=== PATIENT | female | born 1965 | race Caucasian/White ===

== ENCOUNTER 2018-01-31 12:35 | Emergency (ER) | payer BC, OTHER ==
[~2018-01-31] VITALS: Ht 154.9 cm; Wt 86.9 kg
[~2018-01-31 12:35] MED LIST: AMIT25TA9 PO; CPR500 PO; LSN5 PO
[2018-01-31 12:39] VITALS: TEMP 36.7; Ht 154.9 cm; Wt 86.9 kg
[2018-01-31] MEDS ORDERED: SODIUM CHLORIDE 0.9% 1000ML 1,000 ML IV STA (12:48)
[2018-01-31] MEDS ORDERED: ONDANSETRON INJ 2 MG/ML 2 ML VIAL IV STA (12:48)
[2018-01-31 13:06] LABS: BASO % 0.6 %; BASO ABS # 0.04 K/uL (0-0.2); EOS % 3.8 %; EOS ABS # 0.27 K/uL (0-0.5); HEMATOCRIT 41.9 % (37-47); HEMOGLOBIN 14.8 g/dL (12.0-16.0); IG# 0.03 K/uL (0.00-0.02); LYMPH % 24.7 %; LYMPH ABS # 1.74 K/uL (1.2-3.4); MEAN CELL VOLUME 89.3 fL (80-100); MEAN CORPUSCULAR HEMOGLOBIN 31.6 pg (25-34); MEAN CORPUSCULAR HGB CONC 35.3 g/dl (32-36); MEAN PLATELET VOLUME 9.2 fL (7.4-10.4); MONO % 8.7 %; MONO ABS # 0.61 K/uL (0.11-0.59); NEUT % 61.8 %; NEUT ABS # 4.35 K/uL (1.4-6.5); PLATELET COUNT 221 K/uL (130-400); RED CELL DISTRIBUTION WIDTH CV 12.6 % (11.5-14.5); RED CELL DISTRIBUTION WIDTH SD 40.7 fL (36.4-46.3); WHITE BLOOD COUNT 7.04 K/uL (4.8-10.8)
[2018-01-31] MEDS: MoRPHine SULFATE 4 MG/ML 1 ML CARP\\VIAL IV PRN ×2 (13:12→14:43)
[2018-01-31 13:22] LABS: ALBUMIN 3.4 gm/dl (3.4-5.0); CREATININE 0.83 mg/dl (0.60-1.20); POTASSIUM 3.9 mmol/L (3.5-5.1)
--- NOTE | 2018-01-31 13:23 | DIAGNOSTIC IMAGING REPORT ---
CHEST ONE VIEW PORTABLE CLINICAL HISTORY: Abdominal pain. COMPARISON STUDY: Chest radiograph October 05, 2016. FINDINGS: Lung volumes are normal. No pneumothorax or pleural effusion is noted. Cardiac size is at the upper limits of normal. There is no evidence for pulmonary edema. There is no consolidation. IMPRESSION: No acute cardiopulmonary findings. Electronically signed by: Carlos Vargas M.D. 01/31/2018 1:22 PM Dictated Date/Time: 01/31/2018 1:22 PM
[2018-01-31 13:24] LABS: PTT PATIENT 28.5 SECONDS (21.0-31.0); TOTAL PROTEIN 7.5 gm/dl (6.4-8.2)
[2018-01-31] MEDS ORDERED: THYROID MED PO (14:22)
[2018-01-31] MEDS ORDERED: DULO60CA44 PO (14:22)
[2018-01-31] MEDS ORDERED: BLOOD PRESSURE MED PO (14:22)
--- NOTE | 2018-01-31 14:24 | DIAGNOSTIC IMAGING REPORT ---
ABD/PELVIS WITHOUT FOR STONE CLINICAL HISTORY: 52 years-old Female presenting with left lower quadrant and L flank pain, history of diverticulitis. TECHNIQUE: Multidetector CT of the abdomen and pelvis was performed without the use of intravenous contrast. IV contrast: None. A dose lowering technique was used consistent with the principles of ALARA (as low as reasonably achievable). COMPARISON: 06/09/2016. CT DOSE (mGy.cm): The estimated cumulative dose is 1648.43 mGy.cm. FINDINGS: Livestock Farm Manager topogram: Cholecystectomy clips and posterior lumbar fusion hardware noted. Lung bases: Minimal basilar opacities, likely atelectasis. Normal heart size. No pericardial or pleural effusion. Liver: Normal morphology. Normal density. Biliary: No gross biliary ductal dilatation allowing for noncontrast technique. Gallbladder surgically absent. Pancreas: Mild parenchymal atrophy. Spleen: Normal noncontrast appearance. Adrenal glands: Normal noncontrast appearance. Kidneys and ureters: Normal noncontrast appearance. No nephrolithiasis. No hydronephrosis. Normal ureters. Bladder: Circumferential bladder wall thickening. Pelvic organs: Lobular contour the uterine fundus likely indicates underlying fibroid. Significant fascial thickening surrounds the bilateral adnexa. Additionally, there is a 2.2 cm indeterminate cystic lesion arising exophytically from the right ovary. Bowel: Diverticulosis of the sigmoid colon with significant infiltration of the pericolonic fat surrounding the distal sigmoid. No adjacent fluid collection. Diverticulosis also noted in the descending colon. Intramural fat deposition noted elsewhere in the colon, nonspecific. The appendix is normal. No bowel obstruction. Peritoneal cavity: Peritoneal thickening in the pelvis and left lower quadrant. No significant free intraperitoneal fluid. No free intraperitoneal gas. Lymph nodes: No gross lymphadenopathy allowing for noncontrast technique. Vasculature: Atherosclerosis of the normal caliber abdominal aorta. Abdominal wall: Normal. Musculoskeletal: Degenerative changes of the spine. Posterior lumbar fusion hardware at L4-5. Appendectomy defects also noted at this level. IMPRESSION: 1. Findings consistent with acute uncomplicated diverticulitis of the distal sigmoid colon. Gastroenterology consultation for follow-up sigmoidoscopy after treatment could be considered to exclude underlying neoplasm. 2. Right ovarian cystic appearing 2.2 cm lesion, indeterminate. In this perimenopausal female, this is likely benign. Nonurgent pelvic ultrasound could be considered as clinically indicated. Electronically signed by: Jose Anna M.D. 01/31/2018 2:22 PM Dictated Date/Time: 01/31/2018 2:12 PM
[2018-01-31] MEDS ORDERED: LISINOPRIL 5 MG TAB PO ONE (14:30)
[2018-01-31] MEDS ORDERED: METRONIDAZOLE 250 MG TAB PO STA (15:11)
[2018-01-31] MEDS ORDERED: CIPROFLOXACIN 500 MG TAB PO STA (15:11)
[2018-01-31] MEDS ORDERED: CIPR-255 PO (15:21)
[2018-01-31] MEDS ORDERED: METR-163 PO (15:21)
[2018-01-31] MEDS ORDERED: OXYC-57 PO (15:21)
--- NOTE | 2018-01-31 15:22 | EMERGENCY ROOM VISIT NOTE ---
History Report prepared by Bryan: Guille Vargas Under the Supervision of: Dr. Mayur Lopez D.O. First contact with patient: 12:42 Chief Complaint: ABDOMINAL PAIN Stated Complaint: STOMACH PAIN History of Present Illness The patient is a 52 year old female who presents to the Emergency Room with complaints of severe and constant pain in her abdomen that began about 1 week ago. The patient states that her pain is localized to her left lower quadrant. She noticed an acute worsening of her pain last night, and felt subjectively feverish. She did not record any febrile temperatures. She describes the pain as a "cramping" with an intermittent "sharp" sensation. The patient has had diverticulitis in the past, and notes that this feels similar to that episode. She has not had any nausea, vomiting, diarrhea, or urinary symptoms. The patient 's blood pressure was high upon arrival to the ED, but notes that she did not take her medication this morning. Source of History: patient Onset: 1 week ago, acute worsening last night Position: abdomen (LLQ) Quality: sharp, cramping Timing: constant, worsening Associated Symptoms: + fevers, No nausea, No vomiting, No diarrhea, No urinary symptoms Review of Systems See HPI for pertinent positives & negatives. A total of 10 systems reviewed and were otherwise negative. Past Medical & Surgical Medical Problems: (1) Depression Surgical Problems: (1) History of elbow surgery (2) S/P section (3) S/P cholecystectomy (4) S/P endometrial ablation (5) S/P lumbar spinal fusion (6) S/P tonsillectomy Family History FH: CAD (coronary artery disease) FATHER, Onset:50's - 60 MOTHER, Onset:60 years & older Social History Smoking Status: Current Every Day Smoker Marital Status: Occupation Status: employed Current/Historical Medications Scheduled Ciprofloxacin Hcl (Cipro), 500 MG PO BID Duloxetine Hcl (Cymbalta), Unknown Dose PO DAILY Metronidazole (Flagyl), 500 MG PO TID [Blood Pressure Med], 1 TAB PO DAILY [Thyroid Med], 1 TAB PO DAILY Scheduled PRN Oxycodone/Acetaminophen 5MG/325MG (Percocet 5MG/325MG), 1 TAB PO Q6H PRN for Pain Allergies Coded Allergies: Erythromycin (Verified Allergy, Mild, 01/31/18) Tetracyclines (Verified Allergy, Mild, 01/31/18) Cephalosporins (Verified Allergy, Unknown, 01/31/18) Penicillins (Verified Allergy, Unknown, 01/31/18) Sulfa Antibiotics (Verified Allergy, Unknown, ., 01/31/18) Physical Exam Vital Signs Date Time Temp Pulse Resp B/P (MAP) Pulse Ox O2 Delivery O2 Flow Rate FiO2 01/31/18 15:46 78 20 179/109 98 Room Air 01/31/18 14:45 82 15 189/108 97 Room Air 01/31/18 13:45 74 18 202/131 98 Room Air 01/31/18 12:39 36.7 97 18 232/100 99 Room Air Physical Exam CONSTITUTIONAL/VITAL SIGNS: Reviewed / noted above. GENERAL: Non-toxic in appearance. INTEGUMENTARY: Warm, dry, and [place]. HEAD: Normocephalic. EYES: without scleral icterus or trauma. ENT/OROPHARYNX: clear and moist. LYMPHADENOPATHY/NECK: Is supple without lymphadenopathy or meningismus. RESPIRATORY: Lungs clear and equal. CARDIOVASCULAR: Regular rate and rhythm. GI/ABDOMEN: Soft. Tenderness present in the LLQ. No organomegaly or pulsatile mass. No rebound or guarding. Normal bowel sounds. EXTREMITIES: Warm and well perfused. BACK: No CVA tenderness. NEUROLOGICAL: Intact without focal deficits. PSYCHIATRIC: normal affect. MUSCULOSKELETAL: Normally developed with good muscle tone. Medical Decision & Procedures ER Provider Diagnostic Interpretation: Radiology results as stated below per my review and radiologist interpretation: ABD/PELVIS WITHOUT FOR STONE CLINICAL HISTORY: 52 years-old Female presenting with left lower quadrant and L flank pain, history of diverticulitis. TECHNIQUE: Multidetector CT of the abdomen and pelvis was performed without the use of intravenous contrast. IV contrast: None. A dose lowering technique was used consistent with the principles of ALARA (as low as reasonably achievable). COMPARISON: 06/09/2016. CT DOSE (mGy.cm): The estimated cumulative dose is 1648.43 mGy.cm. FINDINGS: Computed Tomography Technician topogram: Cholecystectomy clips and posterior lumbar fusion hardware noted. Lung bases: Minimal basilar opacities, likely atelectasis. Normal heart size. No pericardial or pleural effusion. Liver: Normal morphology. Normal density. Biliary: No gross biliary ductal dilatation allowing for noncontrast technique. Gallbladder surgically absent. Pancreas: Mild parenchymal atrophy. Spleen: Normal noncontrast appearance. Adrenal glands: Normal noncontrast appearance. Kidneys and ureters: Normal noncontrast appearance. No nephrolithiasis. No hydronephrosis. Normal ureters. Bladder: Circumferential bladder wall thickening. Pelvic organs: Lobular contour the uterine fundus likely indicates underlying fibroid. Significant fascial thickening surrounds the bilateral adnexa. Additionally, there is a 2.2 cm indeterminate cystic lesion arising exophytically from the right ovary. Bowel: Diverticulosis of the sigmoid colon with significant infiltration of the pericolonic fat surrounding the distal sigmoid. No adjacent fluid collection. Diverticulosis also noted in the descending colon. Intramural fat deposition noted elsewhere in the colon, nonspecific. The appendix is normal. No bowel obstruction. Peritoneal cavity: Peritoneal thickening in the pelvis and left lower quadrant. No significant free intraperitoneal fluid. No free intraperitoneal gas. Lymph nodes: No gross lymphadenopathy allowing for noncontrast technique. Vasculature: Atherosclerosis of the normal caliber abdominal aorta. Abdominal wall: Normal. Musculoskeletal: Degenerative changes of the spine. Posterior lumbar fusion hardware at L4-5. Appendectomy defects also noted at this level. IMPRESSION: 1. Findings consistent with acute uncomplicated diverticulitis of the distal sigmoid colon. Gastroenterology consultation for follow-up sigmoidoscopy after treatment could be considered to exclude underlying neoplasm. 2. Right ovarian cystic appearing 2.2 cm lesion, indeterminate. In this perimenopausal female, this is likely benign. Nonurgent pelvic ultrasound could be considered as clinically indicated. Electronically signed by: Jose Anna M.D. 01/31/2018 2:22 PM Dictated Date/Time: 01/31/2018 2:12 PM CHEST ONE VIEW PORTABLE CLINICAL HISTORY: Abdominal pain. COMPARISON STUDY: Chest radiograph October 05, 2016. FINDINGS: Lung volumes are normal. No pneumothorax or pleural effusion is noted. Cardiac size is at the upper limits of normal. There is no evidence for pulmonary edema. There is no consolidation. IMPRESSION: No acute cardiopulmonary findings. Electronically signed by: Carlos Vargas M.D. 01/31/2018 1:22 PM Dictated Date/Time: 01/31/2018 1:22 PM Laboratory Results 01/31/18 12:55 Red Blood Count 4.69, Mean Corpuscular Volume 89.3, Mean Corpuscular Hemoglobin 31.6, Mean Corpuscular Hemoglobin Concent 35.3, Mean Platelet Volume 9.2, Neutrophils (%) (Auto) 61.8, Lymphocytes (%) (Auto) 24.7, Monocytes (%) (Auto) 8.7, Eosinophils (%) (Auto) 3.8, Basophils (%) (Auto) 0.6, Neutrophils # (Auto) 4.35, Lymphocytes # (Auto) 1.74, Monocytes # (Auto) 0.61, Eosinophils # (Auto) 0.27, Basophils # (Auto) 0.04 01/31/18 12:55 Test 01/31/18 12:55 01/31/18 13:43 White Blood Count 7.04 K/uL (4.8-10.8) Red Blood Count 4.69 M/uL (4.2-5.4) Hemoglobin 14.8 g/dL (12.0-16.0) Hematocrit 41.9 % (37-47) Mean Corpuscular Volume 89.3 fL (80-100) Mean Corpuscular Hemoglobin 31.6 pg (25-34) Mean Corpuscular Hemoglobin Concent 35.3 g/dl (32-36) Platelet Count 221 K/uL (130-400) Mean Platelet Volume 9.2 fL (7.4-10.4) Neutrophils (%) (Auto) 61.8 % Lymphocytes (%) (Auto) 24.7 % Monocytes (%) (Auto) 8.7 % Eosinophils (%) (Auto) 3.8 % Basophils (%) (Auto) 0.6 % Neutrophils # (Auto) 4.35 K/uL (1.4-6.5) Lymphocytes # (Auto) 1.74 K/uL (1.2-3.4) Monocytes # (Auto) 0.61 K/uL (0.11-0.59) Eosinophils # (Auto) 0.27 K/uL (0-0.5) Basophils # (Auto) 0.04 K/uL (0-0.2) RDW Standard Deviation 40.7 fL (36.4-46.3) RDW Coefficient of Variation 12.6 % (11.5-14.5) Immature Granulocyte % (Auto) 0.4 % Immature Granulocyte # (Auto) 0.03 K/uL (0.00-0.02) Prothrombin Time 10.2 SECONDS (9.0-12.0) Prothromb Time International Ratio 1.0 (0.9-1.1) Activated Partial Thromboplast Time 28.5 SECONDS (21.0-31.0) Partial Thromboplastin Ratio 1.1 Anion Gap 4.0 mmol/L (3-11) Est Creatinine Clear Calc Drug Dose 79.4 ml/min Estimated GFR () 94.0 Estimated GFR (Non- 81.1 BUN/Creatinine Ratio 17.2 (10-20) Calcium Level 9.0 mg/dl (8.5-10.1) Total Bilirubin 0.5 mg/dl (0.2-1) Direct Bilirubin 0.2 mg/dl (0-0.2) Aspartate Amino Transf (AST/SGOT) 22 U/L (15-37) Alanine Aminotransferase (ALT/SGPT) 32 U/L (12-78) Alkaline Phosphatase 81 U/L (45-117) Total Protein 7.5 gm/dl (6.4-8.2) Albumin 3.4 gm/dl (3.4-5.0) Lipase 155 U/L (73-393) Urine Color YELLOW Urine Appearance CLEAR (CLEAR) Urine pH 5.5 (4.5-7.5) Urine Specific [place] 1.014 (1.000-1.030) Urine Protein NEG (NEG) Urine Glucose (UA) NEG (NEG) Urine Ketones NEG (NEG) Urine Occult Blood NEG (NEG) Urine Nitrite NEG (NEG) Urine Bilirubin NEG (NEG) Urine Urobilinogen NEG (NEG) Urine Leukocyte Esterase NEG (NEG) Urine WBC (Auto) 1-5 /hpf (0-5) Urine RBC (Auto) 0-4 /hpf (0-4) Urine Hyaline Casts (Auto) 1-5 /lpf (0-5) Urine Epithelial Cells (Auto) >30 /lpf (0-5) Urine Bacteria (Auto) NEG (NEG) Laboratory results as stated above per my review. Medications Administered Medications (Trade) Dose Ordered Sig/Yasmany Route Start Time Stop Time Status Last Admin Dose Admin Sodium Chloride 1,000 ml @ 999 mls/hr Q1H1M STAT IV 01/31/18 12:48 01/31/18 13:48 DC 01/31/18 13:12 999 MLS/HR Ondansetron HCl (Zofran Inj) 4 mg NOW STAT IV 01/31/18 12:48 01/31/18 12:51 DC 01/31/18 13:12 4 MG Morphine Sulfate (MoRPHine SULFATE INJ) 4 mg Q1H PRN IV 01/31/18 13:00 02/14/18 12:59 01/31/18 14:43 4 MG Lisinopril (Zestril Tab) 5 mg NOW ONCE PO 01/31/18 14:30 01/31/18 14:31 DC 01/31/18 14:42 5 MG Metronidazole (Flagyl Tab) 500 mg NOW STAT PO 01/31/18 15:11 01/31/18 15:13 DC 01/31/18 15:45 500 MG Ciprofloxacin (Cipro Tab) 500 mg NOW STAT PO 01/31/18 15:11 01/31/18 15:13 DC 01/31/18 15:45 500 MG ED Course 1245: Previous medical records were reviewed. The patient was evaluated in room A9B. A complete history and physical examination was performed. 1248: Ordered Zofran 4 mg IV, Sodium Chloride 1000 mL @ 999 mL/hr IV. 1300: Ordered Lisinopril 5 mg PO. 1511: Ordered Ciprofloxacin 500 mg PO, Metronidazole 500 mg PO. 1524:: On reevaluation, the patient is resting in bed. I discussed the results and findings with the patient. She verbalized agreement of the treatment plan. The patient was discharged home. Medical Decision Differential considered: pancreatitis, hepatitis, or acute cholecystitis, AAA, UTI, pyelonephritis, kidney stones, appendicitis, diverticulitis, shingles, bowel obstruction mesenteric ischemia, intussusception, hernia, ovarian torsion , ruptured ovarian cyst, ectopic , . This is a 52-year-old female who presents to the ED with a chief complaint of left lower quadrant abdominal pain. The patient has a history of perforated diverticulitis in the past. She states that her symptoms started about a week ago with some mild discomfort and worsened last night. She had some subjective fevers last night as well. Her pain is increased with movement. It otherwise waxes and wanes. Her initial blood pressure here was elevated at 232/100. She feels that her blood pressure is elevated because of her pain. She was seen at the pain clinic last week and states that her blood pressure was 140 systolic. That was her first visit to the pain clinic. The patient denies any urinary symptoms. No changes in her bowel or bladder. She reported little nausea but no vomiting. A chest x-ray was negative for acute disease. CBC is normal, complete metabolic panel was normal. Urine did not show infection. Chest x- ray was negative for acute disease. CT scan of the abdomen pelvis reveals an uncomplicated diverticulitis of the distal sigmoid section. GI follow-up was recommended and there was also noted to be a right ovarian cyst. The patient was told the results of the test. She was treated with IV fluids, IV Zofran IV morphine. She was noted to be hypertensive. This was felt to be related to discomfort based on a recent blood pressure that was near normal at the pain specialist visit. She was given Cipro and Flagyl p.o. here. The patient was given a prescription for Percocet, Flagyl and Cipro. She was felt to be stable for discharge. She was also given an oral dose of lisinopril. She did not take it this morning. Blood Pressure Screening Patient's blood pressure: Elevated blood pressure Blood pressure disposition: Referred to PCP Impression Primary Impression: Diverticulitis Scribe Attestation The scribe's documentation has been prepared under my direction and personally reviewed by me in its entirety. I confirm that the note above accurately reflects all work, treatment, procedures, and medical decision making performed by me. Departure Information Dispostion Home / Self-Care Prescriptions Oxycodone/Acetaminophen 5MG/325MG (PERCOCET 5MG/325MG) Tab 1 TAB PO Q6H Y for Pain, #20 TAB Prov: Mayur Lopez D.O. 01/31/18 Metronidazole (Flagyl) 500 Mg Tab 500 MG PO TID, #30 TAB Prov: Mayur Lopez D.O. 18 Ciprofloxacin Hcl (CIPRO) 500 Mg Tab 500 MG PO BID, #20 TAB Prov: Mayur Lopez D.O. 01/31/18 Referrals No Doctor, Assigned (PCP) Patient Instructions ED Diverticulitis, My [facility] Additional Instructions Your CT scan reveals findings suggesting diverticulitis. Cipro and Flagyl as prescribed. Percocet as prescribed. No driving within 6 hours of use. Do not take additional Tylenol while taking Percocet. Follow-up with your doctor and GI specialist. Your CT scan also revealed an ovarian cyst on the right. Follow-up with your doctor for this as well. Have your blood pressure rechecked by your doctor. Return for worsening.
[2018-01-31 16:36] VITALS: BP 195/113; PULSE 76; O2SAT 97
== END 2018-01-31 16:36 | disposition home or self-care (01) ==
LOC: C.EDB 12:36 → C.EDA 16:36
DX: K57.32 Diverticulitis of large intestine without perforation or abscess without bleeding (principal); R03.0 Elevated blood-pressure reading, without diagnosis of hypertension; F17.200 Nicotine dependence, unspecified, uncomplicated; Z79.899 Other long term (current) drug therapy; Z88.1 Allergy status to other antibiotic agents; Z88.0 Allergy status to penicillin; Z88.2 Allergy status to sulfonamides

== ENCOUNTER 2018-11-22 08:44 | Inpatient (IN) ==
--- NOTE | 2018-10-20 12:12 | Anesthesiology Consultation ---
Date of Service October 20, 2018 History Surgery Operation Date: 11/04/18 11:25 Proposed Procedures p L5-S1 Decompression and Fusion; L4-L5 Removal of Instrumentation - Rick Sanches DO Height/Weight Height: 5 ft 2.7 in Weight: 80.739 kg Allergies Allergy/AdvReac Type Severity Reaction Status Date / Time erythromycin base Allergy Severe Anaphylaxis Verified 10/17/18 10:47 Sulfa (Sulfonamide Allergy Severe Anaphylaxis Verified 10/17/18 10:47 Antibiotics) Tetracyclines Allergy Severe Anaphylaxis Verified 10/17/18 10:47 Cephalosporins Allergy Unknown Anaphylaxis Verified 10/17/18 10:47 Penicillins Allergy Unknown Anaphylaxis Verified 10/17/18 10:47 Medications Home Medications Medication Instructions Recorded Confirmed Last Taken gabapentin 100 mg PO TID 08/31/18 10/17/18 Unknown levothyroxine 75 mcg PO DAILY 08/31/18 10/17/18 Unknown lisinopril 2.5 mg PO DAILY 09/06/18 10/17/18 Unknown albuterol sulfate 2 puff INHALATION QID PRN 10/17/18 10/17/18 Unknown Past Medical History Medical History Depression (Acute) Diverticulitis (Acute) Hx of thyroid disease (Acute) Asthma Chronic back pain LUMBAR Degenerative disc disease Social History Smoking Status: Current every day smoker tobacco type: cigarettes Smoking cigarettes per day: HX OF 1/2 PPD Do You Dip or Chew Tobacco: No Hx Alcohol Use: Yes Alcohol type: wine and hard liquor alcohol intake frequency: holidays/special occasions only Hx Substance Use: No substance use type: does not use
--- NOTE | 2018-10-20 12:13 | PAT Medication Instructions ---
Medication Instructions Date of Service October 20, 2018 Home Medications gabapentin 100 mg PO TID levothyroxine 75 mcg PO DAILY lisinopril 2.5 mg PO DAILY albuterol sulfate 2 puff INHALATION QID PRN DO NOT take the morning of surgery lisinopril 2.5 mg PO DAILY Take morning of surgery With a small sip of water, OTHERWISE NOTHING TO EAT OR DRINK AFTER MIDNIGHT: gabapentin 100 mg PO TID levothyroxine 75 mcg PO DAILY albuterol sulfate 2 puff INHALATION QID PRN (use if needed; please bring with you to hospital day of surgery if possible) Take evening before surgery gabapentin 100 mg PO TID albuterol sulfate 2 puff INHALATION QID PRN (if needed) Other Notes If you have any questions please call us at [phone] or [phone] or [phone] or [phone]
--- NOTE | 2018-10-20 12:33 | Anesthesiology Consultation ---
Date of Service October 20, 2018 Assessment & Plan (1) Encounter for pre-operative examination: Plan: Patient seen for clearance by primary care on 10/21/2018. Per PCP patient has been noncompliant with BP medication. At this time patient is not cleared for surgery. Patient to take lisinopril as instructed and return to PCP for 3 days of blood pressure checks. If she is compliant and blood pressure is WNL she will be cleared for surgery. Patient returned for BP checks and BP persistently elevated. PCP will not clear the patient for surgery. Surgery to be cancelled until BP under better control. Chart Review Chart Review: Pending: Refer to Additional Notes / Consult section and Patient seen in Pre Admission Testing Teaching & Discussion Instructed NPO after midnight before surgery, except medications with 15 cc of water. Medication instructions provided according to the PAT guidelines. History Surgery Operation Date: 11/04/18 10:55 Proposed Procedures p L5-S1 Decompression and Fusion; L4-L5 Removal of Instrumentation - Rick Sanches, Height/Weight Height: 5 ft 2.7 in Weight: 90.8 kg Allergies Allergy/AdvReac Type Severity Reaction Status Date / Time erythromycin base Allergy Severe Anaphylaxis Verified 10/17/18 10:47 Sulfa (Sulfonamide Allergy Severe Anaphylaxis Verified 10/17/18 10:47 Antibiotics) Tetracyclines Allergy Severe Anaphylaxis Verified 10/17/18 10:47 Cephalosporins Allergy Unknown Anaphylaxis Verified 10/17/18 10:47 Penicillins Allergy Unknown Anaphylaxis Verified 10/17/18 10:47 Medications Home Medications Medication Instructions Recorded Confirmed Last Taken gabapentin 100 mg PO TID 08/31/18 10/17/18 Unknown levothyroxine 75 mcg PO DAILY 08/31/18 10/17/18 Unknown lisinopril 2.5 mg PO DAILY 09/06/18 10/17/18 Unknown albuterol sulfate 2 puff INHALATION QID PRN 10/17/18 10/17/18 Unknown Past Medical History Medical History Depression (Acute) Diverticulitis (Acute) Hx of thyroid disease (Acute) Asthma Using albuterol inhaler multiple times per day in the winter, rare use in summer months Chronic back pain LUMBAR Degenerative disc disease Essential (primary) hypertension Past Surgical History Surgical History History of (Acute) History of endometrial ablation (Acute) History of lumbar spinal fusion (Acute) Hx laparoscopic cholecystectomy (Acute) Hx of elbow surgery (Acute) Hx of tonsillectomy (Acute) Past Anesthesia History No Hx of Anesthesia Complications and No Family Hx of Anesthesia Complications History of PONV No Motion Sickness Screening History of Motion Sickness: Yes Social History Smoking Status: Current every day smoker tobacco type: cigarettes Smoking cigarettes per day: 1/2 PPD for 40yrs Do You Dip or Chew Tobacco: No Hx Alcohol Use: Yes Alcohol type: wine and hard liquor alcohol intake frequency: a few times a month Hx Substance Use: No substance use type: does not use Exercise / Class Metabolic Activity II 4-5 Yardwork/Stairs/Walk up hill (no CP or SOB with 1 FOS) Review of Systems Pt denies any recent chest pain, shortness of breath, palpitations, cough, fever or URI. Physical Exam Vital Signs BP: 188/137 automatic, manual LUE 170/118 -- pt asymptomatic, has not been taking HTN med for several months. Will take Lisinopril when she gets home today and will f/u with PCP on Wednesday. P: 95 bpm SPO2: 96% RA T: 98.3 F R: 16 ENMT Mouth: + dental restorations (one crown on molar); no chipped teeth and no loose teeth Thyromental Distance: < 3.5 Finger Breadths (3) Mallampati Class: I Neck normal visual inspection and + short neck; neck extension not limited Respiratory normal respiratory effort Auscultation: lungs clear to auscultation bilaterally and + diminished lung sounds (B/L) Cardiovascular Rate/Rhythm: regular rate and regular rhythm Heart Sounds: no murmur Vessels: no carotid bruit Extremities: no edema PMI laterally displaced Testing Electrocardiogram Date: 10/20/18 Findings: + NSR @ (84) Chest X-Ray Date: 10/20/18 Findings: + NAD Echocardiogram Date: 06/10/16 Left ventricular systolic function is normal. Ejection Fraction = 60-65%. The left ventricular wall motion is normal. There is borderline concentric left ventricular hypertrophy. Pulse wave TDI of the anterior and posterior mitral annulas demonstrates normal LV relaxation There is mild mitral regurgitation. There is trace tricuspid regurgitation. Laboratory Results 10/20/18 13:01 10/20/18 13:01 Blood Type O Positive 10/20/18 13:01 Antibody Screen NEGATIVE 10/20/18 13:01 PT 10.0 Seconds (9.0-12.0) 10/20/18 13:01 INR 1.0 (0.9-1.1) 10/20/18 13:01 APTT 26.7 Seconds (21.0-31.0) 10/20/18 13:01 Urine Color Yellow 10/20/18 13:01 Urine Appearance Clear (Clear) 10/20/18 13:01 Urine pH 6.0 (4.5-7.5) 10/20/18 13:01 Ur Specific [place] 1.021 (1.000-1.030) 10/20/18 13:01 Urine Protein Negative (Negative) 10/20/18 13:01 Urine Glucose (UA) Negative (Negative) 10/20/18 13:01 Urine Ketones Negative (Negative) 10/20/18 13:01 Urine Nitrite Negative (Negative) 10/20/18 13:01 Ur Leukocyte Esterase Negative (Negative) 10/20/18 13:01 10/20/18 13:01 Urine Culture - Final Urine,Clean Catch Three types of organisms present, all high counts probable skin jackson. No further identifications or sensitivities to follow.
--- NOTE | 2018-10-20 13:22 | XRay Report ---
XR chest Pre-admission PA/Lat CLINICAL HISTORY: pat preoperative evaluation COMPARISON STUDY: 01/31/2018 FINDINGS: The bones soft tissues and hemidiaphragms are normal. The cardiomediastinal silhouette is n ormal. The lungs are clear. The pulmonary vasculature is normal. IMPRESSION: Negative chest. The above report was generated using voice recognition software. It may contain grammatical, syntax or spelling errors. Electronically signed by: Cesar Cm M.D. 10/20/2018 1:21 PM
[2018-10-20 14:07] LABS: Basophils # (auto) 0.05 K/uL (0-0.2); Basophils % (auto) 0.9 %; Eosinophils # (auto) 0.21 K/uL (0-0.5); Eosinophils % (auto) 3.6 %; Hematocrit (blood only) 43.4 % (37-47); Hemoglobin 14.9 g/dL (12.0-16.0); Immature Granulocytes # (auto) 0.01 K/uL (0.00-0.02); Immature Granulocytes % (auto) 0.2 %; Lymphocytes # (auto) 1.69 K/uL (1.2-3.4); Lymphocytes % (auto) 29.1 %; Mean Corpuscular Hgb Conc 34.3 g/dL (32-36); Mean Corpuscular Volume 90.6 fL (80-100); Mean Platelet Volume 9.8 fL (7.4-10.4); Monocytes # (auto) 0.37 K/uL (0.11-0.59); Monocytes % (auto) 6.4 %; Neutrophils # (auto) 3.48 K/uL (1.4-6.5); Neutrophils % (auto) 59.8 %; Platelet Count 243 K/uL (130-400); RDW Coefficient of Variation 12.9 % (11.5-14.5); RDW Standard Deviation 42.9 fL (36.4-46.3); Red Blood Count 4.79 M/uL (4.2-5.4); White Blood Count 5.81 K/uL (4.8-10.8)
[2018-10-20 14:13] LABS: BUN Creatinine Ratio 16.2 (10-20); Calcium 8.8 mg/dl (8.5-10.1); Creatinine Clr Calc Pharmacy 78.6 ml/min; Est GFR (African American) 86.9; Potassium 3.9 mmol/L (3.5-5.1)
[2018-10-20 14:15] LABS: Appearance Urine Clear (Clear); Bilirubin Urine Negative (Negative); Blood Urine Negative (Negative); Color Urine Yellow; Glucose Urine UA Negative (Negative); Ketones Urine Negative (Negative); Leukocyte Esterase Urine Negative (Negative); Nitrite Urine Negative (Negative); Partial Thromboplastin Time 26.7 Seconds (21.0-31.0); Protein Urine Negative (Negative); Specific Gravity Urine 1.021 (1.000-1.030); Urobilinogen Urine Negative (Negative)
[~2018-11-22 08:44] MED LIST changes: +ACETAMINOPHEN 500 MG TAB PO SCH; -AMIT25TA9 PO; +CEFAZOLIN 2000MG 2,000 MG/15 ML SYR IV SCH; -CPR500 PO; +GABAPENTIN 300 MG x 3 PO SCH; +LR 15ML/HR IV SCH; -LSN5 PO; +VANCOMYCIN HCL 1,250 MG in SODIUM CHLORIDE 0.9% 250 ML IV SCH
--- NOTE | 2018-11-22 09:24 | History & Physical Bridge Note ---
Date of Service November 22, 2018 History & Physical Bridge Note I have examined the patient, reviewed the History & Physical and in the interval since the performance of the History & Physical I have noted the following changes of clinical significance: no changes noted
--- NOTE | 2018-11-22 09:25 | History & Physical Report ---
Date of Service November 22, 2018 Assessment & Plan (1) Neurogenic claudication due to lumbar spinal stenosis: Removal of instrumentation L4-5 revision decompression fusion L5-S1 Present on Admission?: Yes History of Present Illness Chief Complaint: Back and leg pain Primary Care Provider: Joe Alba This is a 53-year-old female presents with chronic persistent back and leg pain. After failing extensive course of nonoperative care is here for surgical intervention. Allergies Allergy/AdvReac Type Severity Reaction Status Date / Time erythromycin base Allergy Severe Anaphylaxis Verified 10/17/18 10:47 Sulfa (Sulfonamide Allergy Severe Anaphylaxis Verified 10/17/18 10:47 Antibiotics) Tetracyclines Allergy Severe Anaphylaxis Verified 10/17/18 10:47 Cephalosporins Allergy Unknown Anaphylaxis Verified 10/17/18 10:47 Penicillins Allergy Unknown Anaphylaxis Verified 10/17/18 10:47 Home Medications Home Medications Medication Instructions Recorded Confirmed Type gabapentin 100 mg PO TID 08/31/18 10/17/18 History levothyroxine 75 mcg PO DAILY 08/31/18 10/17/18 History lisinopril 2.5 mg PO DAILY 09/06/18 10/17/18 History albuterol sulfate 2 puff INHALATION QID PRN 10/17/18 10/17/18 History Past Med/Surg History Medical History Depression (Acute) Diverticulitis (Acute) Hx of thyroid disease (Acute) Asthma Using albuterol inhaler multiple times per day in the winter, rare use in summer months Chronic back pain LUMBAR Degenerative disc disease Essential (primary) hypertension Surgical History History of (Acute) History of endometrial ablation (Acute) History of lumbar spinal fusion (Acute) Hx laparoscopic cholecystectomy (Acute) Hx of elbow surgery (Acute) Hx of tonsillectomy (Acute) Social History Current Living Situation: Spouse Other Information That Helps Us Care for You: No Feels Safe at Home: Yes Safety Concerns: Feels Safe At This Time Smoking Status: Current every day smoker Tobacco Type: cigarettes Cigarettes per Day: 1/2 PPD for 40yrs Do You Dip or Chew Tobacco: No Hx Alcohol Use: Yes Alcohol type: wine and hard liquor Alcohol Intake Frequency : a few times a month Hx Substance Use: No Beliefs That Will Affect Care: None Preferred Language: Frisian Communication Ability: Effective Garageman Required: No
[2018-11-22 09:47] LABS: Pregnancy Test, Serum Negative (Negative)
[2018-11-22] MEDS ORDERED: ATROPINE SULFATE 0.1 MG/ML 10ML SYR IV PRN (10:43)
[2018-11-22] MEDS ORDERED: PHENYLEPHRINE 100MCG/ML 5ML SYR IV PRN (10:43)
[2018-11-22] MEDS ORDERED: ONDANSETRON INJ 2 MG/ML 2 ML VIAL IV PRN ×2 (10:43→15:46)
[2018-11-22] MEDS ORDERED: LABETALOL HCL IV 5 MG/ML 20ML IV PRN (10:43)
[2018-11-22] MEDS ORDERED: MEPERIDINE HCL 25 MG/ML CARP IV PRN (10:43)
[2018-11-22] MEDS ORDERED: HYDROmorphone INJ 1 MG/ML SYRINGE IV PRN (10:43)
[2018-11-22] MEDS ORDERED: ePHEDrine sulfate 50 MG/ML AMP IV PRN (10:43)
[2018-11-22] MEDS ORDERED: BACITRACIN INJ 50,000 UNIT VIAL ONE (11:09)
[2018-11-22] MEDS ORDERED: BUPIVACAINE/EPINEPHRINE 0.5% MPF 1:200,000 30 ML VIAL ONE (11:09)
[2018-11-22] MEDS ORDERED: MIDAZOLAM HCL 1 MG/ML 2ML VIAL ONE (11:36)
[2018-11-22] MEDS ORDERED: fentaNYL citrate 100 MCG/2 ML VIAL ONE ×5 (11:36→13:44)
[2018-11-22] MEDS ORDERED: HYDROmorphone INJ 2 MG/ML SYR/VIAL ONE (12:03)
[2018-11-22] MEDS ORDERED: LIDOCAINE HCL 2% 2 ML VIAL/AMP(20MG/ML) INFIL ONE (12:04)
[2018-11-22] MEDS ORDERED: ROCURONIUM BROMIDE 10 MG/ML 5 ML VIAL ONE (12:04)
[2018-11-22] MEDS ORDERED: NEOSTIGMINE METHYLSULFATE 1 MG/ML 10ML VIAL ONE (12:04)
[2018-11-22] MEDS ORDERED: GLYCOPYRROLATE 0.2 MG/ML VIAL ONE (12:04)
[2018-11-22] MEDS ORDERED: DEXAMETHASONE SOD INJ 4 MG/ML VIAL ONE (12:04)
[2018-11-22] MEDS ORDERED: ONDANSETRON INJ 2 MG/ML 2 ML VIAL ONE (12:04)
[2018-11-22] MEDS ORDERED: PROPOFOL IV EMULSION 10 MG/ML 20 ML VIAL IV ONE (12:04)
--- NOTE | 2018-11-22 14:13 | Fluoroscopy Report ---
INTRAOPERATIVE RADIOGRAPHS CLINICAL HISTORY: L5-S1 spinal fusion. Fluoroscopy time: 14 seconds. FINDINGS: 2 spot fluoroscopic views of the lower lumbar spine are presented. There as been discectomy at L5-S1, with laminectomy and posterior fusion at this level. Interpedicular screws are present at both levels. The orthopedic hardware appears intact. IMPRESSION: Intraoperative images from L5 -S1 spinal fusion as above. Electronically signed by: Maxwell Jacob M.D. 11/22/2018 2:11 PM
--- NOTE | 2018-11-22 14:15 | Operative Report ---
Post Operative Report Pre & Post Diagnosis Operation Date: 11/22/18 11:05 Pre-Op Diagnosis: LUMBAR SPINAL STENOSIS W/NEUROGENIC CLAUDICATION Post-Op Diagnosis: LUMBAR SPINAL STENOSIS W/NEUROGENIC CLAUDICATION Procedure Operation Date: 11/22/18 11:05 Actual Procedures p L5-S1 Decompression and Fusion; L4-L5 Removal of Instrumentation(Not Applicable) - Rick Sanches DO Surgeon Rick Sanches, Production Troubleshooter None Estimated Blood Loss 175 Findings Consistent with Post-Op Diagnosis Specimens None Description of Procedure Patient was met with preoperatively case discussed all questions addressed. After informed consent obtained patient was taken to the operative suite underwent intubation and placed in a prone position on the Seven table on top of the Monty frame. All bony prominences well-padded eyes inspected to ensure no external pressure placed upon. This point the lumbar spine was prepped and draped in normal sterile fashion. Sharp dissection with the assistance of Bovie cautery was performed down to and exposing the instrumentation at L4-5 and the remaining lamina of L5 and ala of S1 bilaterally. Then proceeded move the hardware bilaterally explore the fusion mass noting it to be intact. Then performed a revision complete laminectomy of L5 with foraminotomies on the left including complete facetectomy. Pedicle screws were then placed in L5 and S1 levels bilaterally with assistance of fluoroscopy and by way of a trans- foraminal approach on the left complete discectomy of L5-S1 was performed and placed carotid to subcortical bleeding bone and a 12 x 22 mm titanium cage filled with ostium bone graft tapped in position. The rods were then compressed locked in final position bilaterally. The transverse processes of L5 and S1 burred to subcortical bleeding bone. Infuse collagen sponge mass graft local autograft placed in the posterior lateral gutters. 15 round MIRLANDE drain inserted. Incision was then closed with 1 Vicryl in the fascia 2-0 Vicryl subcutaneously and 4-0 Monocryl for final skin closure Steri-Strip sterile dressings placed. Patient awakened taken to PACU stable condition. I attest to the content of the Intraoperative Record and any orders documented therein. Any exceptions are noted below.
[2018-11-22] MEDS: fentaNYL citrate 100 MCG/2 ML VIAL IV PRN ×2 (14:45→14:50)
--- NOTE | 2018-11-22 14:50 | Anesthesiology Progress Note ---
Date of Service November 22, 2018 Anesthesia Post Procedure Vital Signs Vital Signs: Temp Pulse Pulse Resp BP Pulse Ox 11/22/18 14:40 86 14 142/92 H 100 11/22/18 14:30 77 12 155/102 H 99 11/22/18 14:24 36.0 C L 84 16 151/98 H 99 11/22/18 09:51 36.7 C 83 20 133/96 98 Notes Mental Status: alert / awake / arousable Patient Amnestic to Procedure: Yes Nausea / Vomiting: adequately controlled Pain: adequately controlled Airway Patency, RR, SpO2: stable & adequate BP & HR: stable & adequate Hydration State: stable & adequate Anesthetic Complications: no major complications apparent and Pt Satisfied with anesthetic care
[2018-11-22] MEDS ORDERED: PROMETHAZINE HCL 12.5 MG in SODIUM CHLORIDE 0.9% 50 ML IV PRN (15:46)
[2018-11-22] MEDS ORDERED: LORazepam 0.5 MG TAB PO PRN (15:46)
[2018-11-22] MEDS ORDERED: ALBUTEROL HFA 8 GM INHALER INH PRN (15:46)
[2018-11-22] MEDS ORDERED: SOD PHOSPHATE/SOD BIPHOSPHATE ENEMA 132 ML BTL PR PRN (15:46)
[2018-11-22] MEDS ORDERED: DO NOT ADMINISTER PNEUMOCOCCAL VACCINE PRN (15:46)
[2018-11-22] MEDS ORDERED: METOCLOPRAMIDE HCL INJ 5 MG/ML 2 ML VIAL IV PRN (15:46)
[2018-11-22] MEDS ORDERED: ONDANSETRON 4 MG TAB PO PRN (15:46)
[2018-11-22] MEDS ORDERED: ALUMINUM/MAGNESIUM SUSP 30 ML UDC PO PRN (15:46)
[2018-11-22] MEDS ORDERED: LORazepam 0.5 MG/1 ML VIAL IV PRN (15:46)
[2018-11-22] MEDS ORDERED: FAMOTIDINE 20 MG TAB PO PRN (15:46)
[2018-11-22] MEDS ORDERED: HYDROmorphone INJ 0.5 MG/0.5 ML SYR IV PRN (15:46)
[2018-11-22] MEDS ORDERED: BISACODYL 10 MG SUPP PR PRN (15:46)
[2018-11-22] MEDS ORDERED: TRAMADOL HCL 50 MG TABLET PO PRN (15:46)
[2018-11-22] MEDS ORDERED: ACETAMINOPHEN 1,000 MG/100 ML VIAL IV PRN (15:46)
[2018-11-22] MEDS ORDERED: MAGNESIUM HYDROXIDE SUSP 30 ML UDC PO PRN (15:46)
[2018-11-22] MEDS ORDERED: ACETAMINOPHEN 500 MG TAB PO PRN (15:46)
[2018-11-22] MEDS ORDERED: DO NOT ADMINISTER FLU VACCINE PRN (15:46)
[2018-11-22] MEDS ORDERED: PNEUMOCOCCAL POLYSACCHARIDES 25 MCG/0.5 ML VIAL/SYR IM ONE (16:15)
[2018-11-22] MEDS ORDERED: PNEUMOCOCCAL ADMINISTRATION CHARGE ONE (16:15)
[2018-11-22] MEDS: CLINDAMYCIN 600 MG in DEXTROSE 5% 50 ML IV SCH ×2 (16:47→23:10)
[2018-11-22] MEDS: LACTATED RINGER'S 1,000 ML IV SCH (16:48)
[2018-11-22] MEDS: KETOROLAC 30 MG/ML VIAL IV SCH ×2 (16:49→22:29)
[2018-11-22] MEDS: OXYCODONE HCL IR 5 MG TAB (IMMEDIATE RELEASE) PO PRN (17:03)
[2018-11-22] MEDS ORDERED: MoRPHine SULFATE 2 MG/ML CARP IV PRN (17:16)
[2018-11-22] MEDS: MoRPHine SULFATE 4 MG/ML 1 ML CARP\\VIAL ONE ×2 (18:28→18:43)
[2018-11-22] MEDS: DOCUSATE SODIUM/SENNA 50/8.6MG TAB PO SCH (20:42)
[2018-11-22] MEDS: GABAPENTIN 300 MG CAP PO SCH (20:42)
[2018-11-23] MEDS: OXYCODONE HCL IR 5 MG TAB (IMMEDIATE RELEASE) PO PRN ×3 (00:54→19:43)
[2018-11-23] MEDS: KETOROLAC 30 MG/ML VIAL IV SCH ×2 (03:43→11:37)
[2018-11-23] MEDS: LACTATED RINGER'S 1,000 ML IV SCH (03:51)
[2018-11-23] MEDS: POLYETHYLENE (MIRALAX) 17 GM PACK PO SCH ×4 (05:50→23:58)
[2018-11-23] MEDS: LEVOTHYROXINE SODIUM 75 MCG TABLET PO SCH (05:51)
[2018-11-23 06:45] LABS: Basophils # (auto) 0.02 K/uL (0-0.2); Basophils % (auto) 0.3 %; Eosinophils # (auto) 0.17 K/uL (0-0.5); Eosinophils % (auto) 2.5 %; Hematocrit (blood only) 34.6 % (37-47); Hemoglobin 11.7 g/dL (12.0-16.0); Immature Granulocytes # (auto) 0.01 K/uL (0.00-0.02); Immature Granulocytes % (auto) 0.1 %; Lymphocytes # (auto) 1.54 K/uL (1.2-3.4); Mean Corpuscular Hgb Conc 33.8 g/dL (32-36); Mean Corpuscular Volume 90.3 fL (80-100); Mean Platelet Volume 9.8 fL (7.4-10.4); Monocytes # (auto) 0.42 K/uL (0.11-0.59); Monocytes % (auto) 6.3 %; Neutrophils # (auto) 4.54 K/uL (1.4-6.5); Neutrophils % (auto) 67.8 %; Platelet Count 184 K/uL (130-400); RDW Coefficient of Variation 12.6 % (11.5-14.5); RDW Standard Deviation 41.8 fL (36.4-46.3); Red Blood Count 3.83 M/uL (4.2-5.4)
[2018-11-23 07:17] LABS: BUN Creatinine Ratio 14.6 (10-20); Creatinine Clr Calc Pharmacy 63.7 ml/min; Est GFR (African American) 64.9; Potassium 3.7 mmol/L (3.5-5.1)
[2018-11-23] MEDS: hydroCHLOROthiazide 25 MG TAB PO SCH (08:41)
[2018-11-23] MEDS: LISINOPRIL 40 MG TAB PO SCH (08:42)
[2018-11-23] MEDS: AMLODIPINE BESYLATE 5 MG TAB PO SCH (08:42)
[2018-11-23] MEDS: GABAPENTIN 300 MG CAP PO SCH ×3 (08:42→20:25)
--- NOTE | 2018-11-23 10:18 | Anesthesiology Progress Note ---
Date of Service November 23, 2018 Anesthesia Post Procedure Vital Signs Vital Signs: Temp Pulse Resp BP Pulse Ox 11/23/18 07:37 36.7 C 74 16 108/70 97 11/23/18 03:40 36.4 C L 78 16 92/60 L 96 11/22/18 23:13 36.3 C L 80 16 107/68 94 11/22/18 18:45 36.6 C 88 16 110/73 96 11/22/18 17:16 36.8 C 94 H 20 106/69 95 11/22/18 16:35 96 H 16 117/78 99 11/22/18 16:12 84 16 115/74 99 11/22/18 15:20 75 18 129/86 100 11/22/18 15:10 36.0 C L 78 16 139/90 100 11/22/18 15:00 75 18 143/84 H 97 11/22/18 14:50 84 12 119/88 98 11/22/18 14:40 86 14 142/92 H 100 11/22/18 14:30 77 12 155/102 H 99 11/22/18 14:24 36.0 C L 84 16 151/98 H 99 Pain Intensity Back: Pain Intensity: 2 Notes Mental Status: alert / awake / arousable Patient Amnestic to Procedure: Yes Nausea / Vomiting: adequately controlled Pain: adequately controlled Airway Patency, RR, SpO2: stable & adequate BP & HR: stable & adequate Hydration State: stable & adequate Anesthetic Complications: no major complications apparent and Pt Satisfied with anesthetic care
--- NOTE | 2018-11-23 10:51 | Orthopedic Progress Note ---
Date of Service November 23, 2018 Assessment & Plan (1) Neurogenic claudication due to lumbar spinal stenosis: This time we will continue physical therapy monitor her MIRLANDE output anticipate discharge home in the next few days. Present on Admission?: Yes Subjective Back pain is controlled leg symptoms markedly improved. Physical Exam 2 Vital Signs (Past 24 Hours): Last Vital Signs Temp 36.7 C 11/23/18 07:37 Pulse 74 11/23/18 07:37 Resp 16 11/23/18 07:37 BP 108/70 11/23/18 07:37 Pulse Ox 97 11/23/18 07:37 Physical Exam: Patient is comfortable. She demonstrates good strength testing.
[2018-11-23] MEDS: MoRPHine SULFATE 4 MG/ML 1 ML CARP\\VIAL IV PRN ×2 (16:07→23:58)
[2018-11-23] MEDS ORDERED: COUGH DROP (SUGAR FREE) LOZ 24 LOZ/1 BOX BUCCAL PRN (19:51)
[2018-11-23] MEDS: DOCUSATE SODIUM/SENNA 50/8.6MG TAB PO SCH ×2 (20:26→20:30)
[2018-11-24] MEDS: LEVOTHYROXINE SODIUM 75 MCG TABLET PO SCH (05:44)
[2018-11-24] MEDS: POLYETHYLENE (MIRALAX) 17 GM PACK PO SCH ×4 (05:44→23:18)
[2018-11-24] MEDS: OXYCODONE HCL IR 5 MG TAB (IMMEDIATE RELEASE) PO PRN ×3 (05:46→23:22)
[2018-11-24] MEDS: AMLODIPINE BESYLATE 5 MG TAB PO SCH (08:11)
[2018-11-24] MEDS: GABAPENTIN 300 MG CAP PO SCH ×3 (08:11→20:34)
[2018-11-24] MEDS: hydroCHLOROthiazide 25 MG TAB PO SCH (08:11)
[2018-11-24] MEDS: LISINOPRIL 40 MG TAB PO SCH (08:11)
--- NOTE | 2018-11-24 09:59 | Orthopedic Progress Note ---
Date of Service November 24, 2018 Assessment & Plan (1) Neurogenic claudication due to lumbar spinal stenosis: This time we will continue physical therapy. Maintain the MIRLANDE drain another 24 hours. Anticipate discharge home tomorrow. Present on Admission?: Yes Subjective Back pain is controlled leg symptoms markedly improved. Physical Exam 2 Vital Signs (Past 24 Hours): Last Vital Signs Temp 37.3 C 11/24/18 07:34 Pulse 100 H 11/24/18 07:34 Resp 16 11/24/18 07:34 BP 129/76 11/24/18 07:34 Pulse Ox 93 11/24/18 07:34 Physical Exam: Patient is in bed. She is good strength testing. She appears comfortable.
[2018-11-24] MEDS ORDERED: SODIUM CHLORIDE 0.65% NA SOLN 45 ML (OCEAN) PRN (16:55)
[2018-11-24] MEDS ORDERED: SODIUM CHLORIDE 0.65% NA SOLN 45 ML (OCEAN) ONE (17:19)
[2018-11-24] MEDS: DOCUSATE SODIUM/SENNA 50/8.6MG TAB PO SCH (20:36)
[2018-11-25] MEDS: OXYCODONE HCL IR 5 MG TAB (IMMEDIATE RELEASE) PO PRN ×2 (05:24→12:39)
[2018-11-25] MEDS: LEVOTHYROXINE SODIUM 75 MCG TABLET PO SCH (05:24)
[2018-11-25] MEDS: GABAPENTIN 300 MG CAP PO SCH (09:10)
[2018-11-25] MEDS: AMLODIPINE BESYLATE 5 MG TAB PO SCH (09:10)
[2018-11-25] MEDS: hydroCHLOROthiazide 25 MG TAB PO SCH (09:11)
[2018-11-25] MEDS: LISINOPRIL 40 MG TAB PO SCH (09:11)
--- NOTE | 2018-11-25 10:04 | Discharge Summary ---
Date of Service November 25, 2018 Admission HPI Per Admitting Provider This is a 53-year-old female presents with chronic persistent back and leg pain. After failing extensive course of nonoperative care is here for surgical intervention. Principal Diagnosis Lumbar spinal stenosis with radiculopathy Discharge Data Allergies Allergy/AdvReac Type Severity Reaction Status Date / Time Cephalosporins Allergy Severe Anaphylaxis Verified 11/22/18 12:12 erythromycin base Allergy Severe Anaphylaxis Verified 11/22/18 09:32 Penicillins Allergy Severe Anaphylaxis Verified 11/22/18 12:12 Sulfa (Sulfonamide Allergy Severe Anaphylaxis Verified 11/22/18 09:32 Antibiotics) Tetracyclines Allergy Severe Anaphylaxis Verified 11/22/18 09:32 Consultations 11/22/18 15:46 Consult Case Management - Discharge Planning Routine Procedures Performed Operation Date: 11/22/18 11:05 Actual Procedures p L5-S1 Decompression and Fusion(Not Applicable) - Rick Sanches DO s L4-L5 Removal of Instrumentation(Not Applicable) - Rick Sanches DO Ordered Studies 11/22/18 07:00 FL fluoroscopy <1hr Routine FL lumbar spine 2-3V Routine Hospital Course (1) Neurogenic claudication due to lumbar spinal stenosis: Patient underwent lumbar decompression fusion tolerated this well was taken to the orthopedic floor postoperative. Postop day 1 leg symptoms are improved. She tolerated physical therapy. She progressed through postop day # 2 on postop day #3 she was subsequently discharged home. Discharge orders and instructions from the chart for further review. Total Time Total Time Spent Total Time Spent (In Minutes): Not applicable Discharge Plan Discharge Items Patient Disposition: Home - Self-Care Reason For Visit: LUMBAR SPINAL STENOSIS W/NEUROGENIC CLAUDICATION Discharge Diagnosis: lumbar stenosis Discharge Goals: Improve function Activity: Per 'Additional Instructions' section Non-emergency contact: Primary Care Provider Call non-emergency contact if: you have any medication questions Follow-up/Referrals: Joe Alba MD [Primary Care Provider] - Diet: Regular Addtl Provider Instructions: ACTIVITY RECOMMENDATIONS: SELF CARE INSTRUCTIONS AFTER THORACIC/LUMBAR FUSIONS 1. You may walk to your tolerance. It is good exercise for your legs and back. Expect some back and intermittent leg aches and pains. 2. You may perform "counter-top" level activities (make a sandwich, carmen with a project, etc.). 3. No bending or lifting of more than 10 pounds or back twisting of any nature (roll like a log when turning in bed). 4. You may ride in a car for 20-30 minutes at a time. No driving until after your first visit with your doctor. 5. Frequent changes of position and restricting sitting to 30 minutes at a time will help limit the amount of back spasms and stiffness you may experience. 6. You may discontinue the use of ambulatory aids (cane, crutches, etc.) once your strength and confidence allow. 7. You may finding fastener the shower and let water strike your incision when you arrive home at least once daily. Do not take a tub bath, sit in a hot tub or go into a swimming pool until after your first recheck in the office. SPECIAL CARE INSTRUCTIONS: VERY IMPORTANT TO READ AND REVIEW A. Your surgical incision has been closed with a cosmetic suture under the skin that will dissolve in about 6 weeks. In 14 days, you can use a pair of clean scissors and cut the suture that is left outside of the skin at the ends of your incision. 1. The small skin tapes can be removed 7 days after surgery if they have not fallen off by that point. 2. You may keep the wound open to air as much as possible to promote healing after post-op day number 5 unless told otherwise by your doctor. 3. If you think the wound looks like it is becoming infected (redness or worsening drainage) and/or you are experiencing fever, chill or worsening back pain and muscle spasms, contact the office so that we may evaluate you as soon as possible. B. Complications are uncommon, but please contact us if you have any signs or symptoms of: 1. wound infection (fever higher than 102.5 degrees F, redness, separation of wound, drainage, or increasing pain from the incision) 2. blood clots in legs (pain, swelling, redness and warmth in legs) 3. urinary tract infection (fever higher than 102.5 degrees F, burning upon urination or increased frequency of urination) 4. nerve problems (inability to walk on your toes or heels, numbness, loss of bowel or bladder control) 5. any other symptoms that concern you C. Please call the office at if you have any concerns or questions about your operation or recovery. D. No smoking! Smoking drastically decreases the chance of a solid fusion. E. Do not take any anti-inflammatory medications (Indocin, Advil, Motrin, Aspirin, Naprosyn, etc.) as these may inhibit the chance of a solid fusion. Tylenol is okay to take for pain. MANAGING PAIN AFTER SPINAL SURGERY 1. Narcotic medication is intended for short-term use and will be provided for surgical pain. Surgical pain usually lasts for a period of 4-6 weeks. Narcotic medication includes Percocet, Vicodin, Darvocet, Tylenol #3 or Lortab. 2. Longer-term pain is more appropriately treated with non-narcotic medication such as Tylenol ES. 3. Muscle spasm is not appropriately treated with narcotics. Muscle relaxers such as Soma, Flexeril or Skelaxin can be used along with Tylenol ES. 4. Remember that we all live with some "aches and pains". This is not unusual or uncommon after an injury or as we get older. a. Back pain is expected and may include muscle spasms for 4 to 6 weeks after surgery. The pain should gradually improve. If the pain worsens for no apparent reason, please contact the office. b. Intermittent leg pain may also be experienced and should not be concerned about unless it worsens for no apparent reason. If so, please contact the office. 5. We will provide appropriate medication within the normal guidelines of their prescribed use. We will also be very cautious and aware of potential abuse and extended duration of patients' medication needs. a. Pain medications are for your comfort and to assist with sleep and rest so that the tissue can heal. They are not provided in order to return to normal activity and should not be used through the day. To do so or worsening pain at night can result from ongoing tissue damage and development of tolerance to the prescribed medicine. 6. Please allow 2-3 days to process refills. Prescriptions will not be mailed but must be picked up at the office. FOLLOW UP VISIT: Keep your scheduled follow-up appointment. Any questions, please call the office at . Prescriptions: New tramadol 50 mg Tablet 50 mg PO Q4H PRN (Reason: Pain, Severe) Qty: 30 RF: 0 oxycodone 5 mg Tablet 5 mg PO Q4H PRN (Reason: Pain, Severe) Qty: 30 RF: 0 Continue albuterol sulfate 90 mcg/actuation Hfa Aerosol Inhaler 2 puff INHALATION QID PRN (Reason: Wheezing) RF: 0 amlodipine 10 mg tablet 10 mg PO DAILY MDD 10 mg RF: 0 hydrochlorothiazide 25 mg Tablet 25 mg PO DAILY RF: 0 hydroxyzine HCl 25 mg Tablet 25 mg PO Q6 PRN (Reason: Anxiety) RF: 0 gabapentin 100 mg Capsule 300 mg PO TID RF: 0 levothyroxine 75 mcg Capsule 75 mcg PO DAILY RF: 0 lisinopril 2.5 mg Tablet 40 mg PO DAILY RF: 0 Stand-Alone Forms: [facility] Discharge Orders: Discharge Order (Routine); Ordered 11/25/18 Ordered By: Rick Sanches Admission Data Admit Date/Time: 11/22/18 14:19 Attending Provider: Rick Sanches Admit Provider: Rick Sanches Primary Care Provider: Joe Alba Service: Surgical Services
== END 2018-11-25 13:10 | disposition home or self-care (01) | DRG 455 ==
LOC: ASU 08:44 → 3E 14:19

== ENCOUNTER 2021-04-25 15:23 | Inpatient (IN) ==
--- NOTE | 2021-04-25 17:31 | Emergency Department Note ---
History of Present Illness General Chief complaint: Leg Injury/Pain Stated complaint: REFERRED BY DOCTOR, POTENTIAL DVT IN LEG, PAIN Time Seen by Provider: 04/25/21 17:18 Source: patient Mode of arrival: ambulatory Limitations: no limitations History of Present Illness Provider complaint: Leg pain and swelling, shortness of breath Onset (ago): week(s) Radiation: proximal Severity: moderate Maximum Pain Intensity: 6 Relieved By: + none Exacerbated By: + movement Associated symptoms: + chest pain, + malaise and + shortness of breath; no fever/chills, no headaches or no syncope This is a 55-year-old female presents emergency department complaining of bilateral leg pain, and shortness of breath. Patient states she began noticing bilateral leg pain and swelling approximately 1 and half weeks ago. Denies any prior similar episodes. Denies any change in ambulation or activity. Patient states the pain on the left is greater than that on the right, and the majority of the pain is on her calves. No prior history of DVT. She did see her family doctor today who advised her to come to the emergency room as they were concerned for possible DVT. Patient states a few days ago she also noticed slight chest discomfort and shortness of breath, particular with exertion. No prior similar events. No history of heart problems. Patient states she does take medication for high blood pressure however did not take it this morning. Patient does not otherwise take any medication for pain. Patient states she does have a history of asthma although her discomfort and shortness of breath feel different than prior asthma exacerbations. Patient denies any fevers, or chills. She states she was recently at a constitution party for their anniversary and [employer] people did test Covid positive following this. She states she had an outpatient coronavirus test yesterday which was reported to her as negative. Pt seen during a time of high acuity and national emergency pandemic while wearing PPE. Home Medications Medication Instructions Recorded Confirmed Type gabapentin 100 mg capsule 300 mg PO TID 08/31/18 04/25/21 History levothyroxine 75 mcg capsule 75 mcg PO DAILY 08/31/18 04/25/21 History albuterol sulfate 90 mcg/actuation 2 puff INHALATION QID PRN 10/17/18 04/25/21 History aerosol inhaler hydroxyzine HCl 25 mg tablet 25 mg PO Q6 PRN 11/22/18 04/25/21 History tramadol 50 mg tablet 50 mg PO Q4H PRN #30 tab 11/23/18 04/25/21 Rx amlodipine 10 mg tablet 10 mg PO DAILY 04/25/21 04/25/21 History ciprofloxacin HCl 500 mg tablet 500 mg PO BID #14 tab 04/25/21 Rx (Cipro) cyclobenzaprine 10 mg tablet 10 mg PO HS PRN 04/25/21 04/25/21 History duloxetine 30 mg capsule,delayed 30 mg PO DAILY 04/25/21 04/25/21 History release (Cymbalta) hydrochlorothiazide 50 mg tablet 50 mg PO DAILY 04/25/21 04/25/21 History lisinopril 40 mg tablet 40 mg PO DAILY 04/25/21 04/25/21 History metronidazole 500 mg tablet 500 mg PO Q8H 7 Days #21 tab 04/25/21 Rx (Flagyl) ondansetron HCl 4 mg tablet 4 mg PO Q6H PRN 04/25/21 04/25/21 History Allergies Allergy/AdvReac Type Severity Reaction Status Date / Time Cephalosporins Allergy Severe Anaphylaxis Verified 04/25/21 20:56 erythromycin base Allergy Severe Anaphylaxis Verified 04/25/21 20:56 Penicillins Allergy Severe Anaphylaxis Verified 04/25/21 20:56 Sulfa (Sulfonamide Allergy Severe Anaphylaxis Verified 04/25/21 20:56 Antibiotics) Tetracyclines Allergy Severe Anaphylaxis Verified 04/25/21 20:56 Past Med/Surg History Medical History Asthma Using albuterol inhaler multiple times per day in the winter, rare use in summer months Chronic back pain LUMBAR Degenerative disc disease Depression Diverticulitis Essential (primary) hypertension Hx of thyroid disease Hypothyroidism Surgical History History of History of endometrial ablation History of lumbar spinal fusion Hx laparoscopic cholecystectomy Hx of elbow surgery Hx of tonsillectomy Social History Smoking Status: Current every day smoker Tobacco Type: Cigarettes Cigarettes Per Day: 1/2 pack; Second Hand Exposure: No; Hx Alcohol Use: Yes Alcohol type: beer Hx Substance Use: Yes Last Used Substance: Days (ago) Substance Use Type Other:: CBD edibles Preferred Language: Kittitian Communication Ability: Effective Ribbon Lapper Tender Required: No Beliefs That Will Affect Care: None marital status: Current Living Situation: Spouse Other Information That Helps Us Care for You: No Feels Safe at Home: Yes Safety Concerns: Feels Safe At This Time Assistive Devices: Contacts Review of Systems A total of 10 systems reviewed and were otherwise negative All systems reviewed & are unremarkable except as noted in HPI & below Physical Exam Vital Signs Vital Signs - 24 hr 04/25/21 23:30 04/26/21 00:00 04/26/21 00:30 Pulse Rate 71 78 77 Pulse Rate from SpO2 Sensor 77 Respiratory Rate 18 16 22 Blood Pressure 172/104 H 149/116 H 177/96 H Blood Pressure Mean 126 127 123 Pulse Oximetry 95 GENERAL: alert, well appearing, well nourished, no distress, non-toxic, BMI>35 EYE EXAM: normal conjunctiva, PERRL and EOM's grossly intact OROPHARYNX: no exudate, no erythema, lips, buccal mucosa, and tongue normal and mucous membranes are moist NECK: supple, no nuchal rigidity, no adenopathy, non-tender LUNGS: Clear to auscultation. Normal chest wall mechanics, no w/r/r HEART: no murmurs, S1 normal and S2 normal ABDOMEN: abdomen soft, non-tender, normo-active bowel sounds, no masses, no rebound or guarding. BACK: Back is symmetrical on inspection and there is no deformity, no midline tenderness, no CVA tenderness. SKIN: no rashes and no bruising, no petechiae UPPER EXTREMITIES: upper extremities are grossly normal. FROM, nml pulses b/l. LOWER EXTREMITIES: No pitting edema. Mild tenderness with palpation bilateral lower extremities. No palpable mass in the calves or posterior knee. FROM, nml pulses b/l. NEURO EXAM: Normal sensorium, cranial nerves II-XII grossly intact, normal speech, no gross weakness of arms, no gross weakness of legs. No pronator drift. Finger to nose intact. Gross sensation intact. Course Course 1929: No improvement in patient's pain. Updated on results thus far. Blood pressure still elevated. 2049: Mild improvement in blood pressure after medications, will add additional meds. Patient still feels the elevated blood pressure secondary to her leg pain. She denies any chest pain at this time. 2120: Blood pressure is improved. Patient now mentions that she had originally scheduled a visit today with her PCP not only for her leg pain but also with some left lower quadrant abdominal pain which she states is similar to prior episodes of diverticulitis. She states she has had 4 episodes. The last episode was 2 years ago. She denies any change in her bowel movements, fevers or chills. Patient requesting Cipro and Flagyl antibiotics. 0: Patient with persistently elevated blood pressure. Taken in both arms - no significant discrepancy. Pt denies CP, sob. 2250: Discussed with Dr. Jiménez. Administered Medications Amlodipine Besylate (Amlodipine Besylate 5 Mg Tab) 10 mg PO DAILY SHONA Stop: 05/26/21 08:59 Last Admin: 04/26/21 09:57 Dose: 10 mg Documented by: [id number] Carvedilol (Carvedilol 3.125 Mg Tab) 3.125 mg PO BID SHONA Stop: 05/26/21 20:59 Last Admin: 04/26/21 21:18 Dose: 3.125 mg Documented by: [id number] Duloxetine HCl (Duloxetine Hcl 30 Mg Cap) 30 mg PO DAILY SHONA Stop: 05/26/21 08:59 Last Admin: 04/26/21 10:00 Dose: 30 mg Documented by: [id number] Enoxaparin Sodium (Enoxaparin Inj 40 Mg/0.4 Ml Syr) 40 mg SQ Q12H SHONA Stop: 05/26/21 05:59 Last Admin: 04/26/21 18:17 Dose: Not Given Documented by: [id number] Admin: 04/26/21 06:01 Dose: 40 mg Documented by: [id number] Gabapentin (Gabapentin 300 Mg Cap) 300 mg PO TID SHONA Stop: 05/26/21 08:59 Last Admin: 04/26/21 21:18 Dose: 300 mg Documented by: [id number] Admin: 04/26/21 14:53 Dose: 300 mg Documented by: [id number] Admin: 04/26/21 10:02 Dose: 300 mg Documented by: [id number] Hydrochlorothiazide (Hydrochlorothiazide 25 Mg Tab) 50 mg PO DAILY SHONA Stop: 05/26/21 08:59 Last Admin: 04/26/21 10:03 Dose: 50 mg Documented by: [id number] Ciprofloxacin (Cipro / D5w) 400 mg in 200 mls @ 100 mls/hr IV Q12H SHONA; Protocol Stop: 05/06/21 08:59 Last Admin: 04/26/21 21:20 Dose: 100 mls/hr Documented by: [id number] Infusion: 04/26/21 12:08 Dose: 0 mls/hr Documented by: [id number] Admin: 04/26/21 09:57 Dose: 100 mls/hr Documented by: [id number] Metronidazole (Flagyl) 500 mg in 100 mls @ 100 mls/hr IV Q8H [facility] Stop: 05/06/21 05:59 Last Infusion: 04/26/21 22:40 Dose: 0 mls/hr Documented by: [id number] Admin: 04/26/21 21:13 Dose: 100 mls/hr Documented by: [id number] Infusion: 04/26/21 15:57 Dose: 0 mls/hr Documented by: [id number] Admin: 04/26/21 14:53 Dose: 100 mls/hr Documented by: [id number] Infusion: 04/26/21 07:01 Dose: 0 mls/hr Documented by: [id number] Admin: 04/26/21 06:01 Dose: 100 mls/hr Documented by: [id number] Promethazine HCl 12.5 mg/ (Sodium Chloride) 50.5 mls @ 202 mls/hr IV Q6H PRN PRN Reason: Nausea And Vomiting Stop: 05/26/21 08:18 Last Infusion: 04/26/21 09:56 Dose: 202 mls/hr Documented by: [id number] Admin: 04/26/21 09:19 Dose: 202 mls/hr Documented by: [id number] Labetalol HCl (Labetalol Hcl Iv 5 Mg/Ml 20ml) 10 mg IV Q4H PRN PRN Reason: Hypertension Stop: 05/26/21 01:31 Last Admin: 04/26/21 02:01 Dose: 10 mg Documented by: [id number] Cosigned by: [id number] Levothyroxine Sodium (Levothyroxine Sodium 75 Mcg Tablet) [facility]: 05/26/21 06:29 Last Admin: 04/26/21 06:01 Dose: 75 mcg Documented by: [id number] Lisinopril (Lisinopril 40 Mg Tab) 40 mg PO DAILY [facility] Stop: 05/26/21 08:59 Last Admin: 04/26/21 10:03 Dose: 40 mg Documented by: [id number] Morphine Sulfate (Morphine Sulfate 4 Mg/Ml 1 Ml Carp\Vial) 3 mg IV Q3H PRN PRN Reason: Pain Stop: 05/10/21 02:09 Last Admin: 04/26/21 06:08 Dose: 3 mg Documented by: [id number] Nitroglycerin (Nitroglycerin Sl 0.4 Mg/Tab Tab) 0.4 mg SL UD PRN PRN Reason: Chest Pain Stop: 05/26/21 01:31 Last Admin: 04/26/21 06:43 Dose: 0.4 mg Documented by: [id number] Discontinued Medications Amlodipine Besylate (Amlodipine Besylate 5 Mg Tab) 5 mg PO NOW ONE Stop: 04/25/21 20:52 Last Admin: 04/25/21 21:27 Dose: 5 mg Documented by: [id number] Carvedilol (Carvedilol 3.125 Mg Tab) 3.125 mg PO NOW ONE Stop: 04/26/21 13:59 Last Admin: 04/26/21 14:53 Dose: 3.125 mg Documented by: [id number] Ciprofloxacin (Ciprofloxacin 500 Mg Tab) 500 mg PO NOW STA Stop: 04/25/21 21:18 Last Admin: 04/25/21 21:26 Dose: 500 mg Documented by: [id number] Diclofenac Sodium (Diclofenac Sod 1% Gel 100 Gm Tube) 2 gm EXT NOW STA Stop: 04/25/21 21:17 Last Admin: 04/25/21 21:27 Dose: 2 gm Documented by: [id number] Fentanyl Citrate (Fentanyl Citrate 100 Mcg/2 Ml Vial) 50 mcg IV NOW STA Stop: 04/25/21 22:44 Last Admin: 04/25/21 22:58 Dose: 50 mcg Documented by: [id number] Sodium Chloride (Nss 1000ml) 1,000 mls @ 125 mls/hr IV .Q8H [facility] Stop: 05/25/21 17:44 Last Infusion: 04/26/21 01:33 Dose: 0 mls/hr Documented by: [id number] Admin: 04/25/21 18:22 Dose: 125 mls/hr Documented by: [id number] Acetaminophen (Ofirmev) 1,000 mg in 100 mls @ 400 mls/hr IV NOW STA Stop: 04/25/21 17:47 Last Infusion: 04/25/21 19:19 Dose: 0 mls/hr Documented by: [id number] Admin: 04/25/21 18:19 Dose: 400 mls/hr Documented by: [id number] Ketorolac Tromethamine (Ketorolac Tromethamine 15 Mg/Ml Vial) 10 mg IV NOW ONE Stop: 04/25/21 19:37 Last Admin: 04/25/21 19:42 Dose: 10 mg Documented by: [id number] Labetalol HCl (Labetalol Hcl Iv 5 Mg/Ml 20ml) 10 mg IV NOW STA Stop: 04/25/21 19:31 Last Admin: 04/25/21 19:42 Dose: 10 mg Documented by: [id number] Cosigned by: [id number] Lisinopril (Lisinopril 40 Mg Tab) 40 mg PO NOW STA Stop: 04/25/21 17:34 Last Admin: 04/25/21 18:26 Dose: 40 mg Documented by: [id number] Metronidazole (Metronidazole 500 Mg Tab) 500 mg PO NOW STA Stop: 04/25/21 21:18 Last Admin: 04/25/21 21:26 Dose: 500 mg Documented by: [id number] Miscellaneous Information (Consult Pharmacy) 1 ea N/A NOW STA Stop: 04/26/21 00:39 Last Admin: 04/26/21 11:19 Dose: Not Given Documented by: [id number] Morphine Sulfate (Morphine Sulfate 4 Mg/Ml 1 Ml Carp\Vial) 3 mg IV NOW STA Stop: 04/26/21 06:46 Last Admin: 04/26/21 06:52 Dose: 3 mg Documented by: [id number] Critical Care Time Critical Care Time: Yes Total Critical Care Time: 35 Critical care of 35 min performed to assess and manage high likelihood of life-threatening uncontrolled hypertension, involving labs and imaging performed with assessment to evaluate uncontrolled hypertension diagnosis with frequent reassessment. This time includes bedside time, treatment discussions with patient/family/consultants, documentation time and excludes procedure time. Medical Decision Making Differential Diagnosis Differential diagnoses includes but is not limited to acute coronary syndrome, myocardial infarction, pericarditis, pulmonary embolus, aortic dissection, pneumonia, pneumothorax, musculoskeletal, shingles, esophageal. Medical Records Attestation: I reviewed the patient's medical records. Home Medications Current Medication List: was personally reviewed by me Laboratory Data Attestation: I reviewed the patient's lab results. Result diagrams: 04/26/21 07:55 04/26/21 07:55 Lab Results 04/25/21 04/25/21 04/25/21 Range/Units 17:34 17:34 17:34 WBC 7.81 (4.8-10.8) K/uL RBC 5.05 (4.2-5.4) M/uL Hgb 15.9 (12.0-16.0) g/dL Hct 45.8 (37-47) % MCV 90.7 (80-100) fL MCH 31.5 (25-34) pg MCHC 34.7 (32-36) g/dL RDW Std Deviation 43.7 (36.4-46.3) fL RDW Coeff of Kierra 13.3 (11.5-14.5) % Plt Count 238 (130-400) K/uL MPV 9.9 (7.4-10.4) fL Immature Gran % (Auto) 0.1 % Neut % (Auto) 69.1 % Lymph % (Auto) 21.4 % [place] % (Auto) 6.0 % Eos % (Auto) 2.9 % Baso % (Auto) 0.5 % Neut # (Auto) 5.39 (1.4-6.5) K/uL Lymph # (Auto) 1.67 (1.2-3.4) K/uL [place] # (Auto) 0.47 (0.11-0.59) K/uL Eos # (Auto) 0.23 (0-0.5) K/uL Baso # (Auto) 0.04 (0-0.2) K/uL Immature Gran # (Auto) 0.01 (0.00-0.02) K/uL D-Dimer 490 (0-500) ug/L FEU Sodium 138 (136-145) mmol/L Potassium 3.7 (3.5-5.1) mmol/L Chloride 107 (98-107) mmol/L Carbon Dioxide 25 (21-32) mmol/L Anion Gap 6.0 (3-11) BUN 13 (7-18) mg/dl Creatinine 0.90 (0.6-1.2) mg/dl Est Cr Clr Drug Dosing 74.9 ml/min Est GFR ( Amer) 83.4 ml/min Est GFR (Non-Af Amer) 72.0 ml/min BUN/Creatinine Ratio 14.1 (10-20) Glucose 85 (70-99) mg/dl Calcium 9.6 (8.5-10.1) mg/dl Magnesium 2.2 (1.8-2.4) mg/dl Total Bilirubin 0.4 (0.2-1) mg/dl AST 30 (15-37) U/L ALT 40 (12-78) U/L Alkaline Phosphatase 109 (45-117) U/L Total Creatine Kinase 85 (26-192) U/L Troponin I < 0.015 (0-0.045) ng/ml NT-Pro-B Natriuret Pep 245 (0-900) pg/ml Total Protein 8.0 (6.4-8.2) gm/dl Albumin 3.8 (3.4-5.0) gm/dl Globulin 4.2 H (2.5-4.0) gm/dl Albumin/Globulin Ratio 0.9 (0.9-2) Lipase 215 (73-393) U/L TSH 2.550 (0.300-4.500) uIu/ml Specimen Hemolysis Lyme Disease IgG Ab Lyme Disease IgM Ab COVID-19 Eval Order SARS-CoV-2 (PCR) (Negative) 04/25/21 04/25/21 04/25/21 Range/Units 17:34 18:20 18:20 WBC (4.8-10.8) K/uL RBC (4.2-5.4) M/uL Hgb (12.0-16.0) g/dL Hct (37-47) % MCV (80-100) fL MCH (25-34) pg MCHC (32-36) g/dL RDW Std Deviation (36.4-46.3) fL RDW Coeff of Kierra (11.5-14.5) % Plt Count (130-400) K/uL MPV (7.4-10.4) fL Immature Gran % (Auto) % Neut % (Auto) % Lymph % (Auto) % [place] % (Auto) % Eos % (Auto) % Baso % (Auto) % Neut # (Auto) (1.4-6.5) K/uL Lymph # (Auto) (1.2-3.4) K/uL [place] # (Auto) (0.11-0.59) K/uL Eos # (Auto) (0-0.5) K/uL Baso # (Auto) (0-0.2) K/uL Immature Gran # (Auto) (0.00-0.02) K/uL D-Dimer (0-500) ug/L FEU Sodium (136-145) mmol/L Potassium (3.5-5.1) mmol/L Chloride (98-107) mmol/L Carbon Dioxide (21-32) mmol/L Anion Gap (3-11) BUN (7-18) mg/dl Creatinine (0.6-1.2) mg/dl Est Cr Clr Drug Dosing ml/min Est GFR ( Amer) ml/min Est GFR (Non-Af Amer) ml/min BUN/Creatinine Ratio (10-20) Glucose (70-99) mg/dl Calcium (8.5-10.1) mg/dl Magnesium (1.8-2.4) mg/dl Total Bilirubin (0.2-1) mg/dl AST (15-37) U/L ALT (12-78) U/L Alkaline Phosphatase (45-117) U/L Total Creatine Kinase (26-192) U/L Troponin I (0-0.045) ng/ml NT-Pro-B Natriuret Pep (0-900) pg/ml Total Protein (6.4-8.2) gm/dl Albumin (3.4-5.0) gm/dl Globulin (2.5-4.0) gm/dl Albumin/Globulin Ratio (0.9-2) Lipase (73-393) U/L TSH (0.300-4.500) uIu/ml Specimen Hemolysis Lyme Disease IgG Ab Cancelled Lyme Disease IgM Ab Cancelled COVID-19 Eval Order Covid19 at [facility] SARS-CoV-2 (PCR) NEGATIVE (Negative) 04/25/21 04/25/21 04/25/21 Range/Units 20:11 21:36 21:54 WBC (4.8-10.8) K/uL RBC (4.2-5.4) M/uL Hgb (12.0-16.0) g/dL Hct (37-47) % MCV (80-100) fL MCH (25-34) pg MCHC (32-36) g/dL RDW Std Deviation (36.4-46.3) fL RDW Coeff of Kierra (11.5-14.5) % Plt Count (130-400) K/uL MPV (7.4-10.4) fL Immature Gran % (Auto) % Neut % (Auto) % Lymph % (Auto) % [place] % (Auto) % Eos % (Auto) % Baso % (Auto) % Neut # (Auto) (1.4-6.5) K/uL Lymph # (Auto) (1.2-3.4) K/uL [place] # (Auto) (0.11-0.59) K/uL Eos # (Auto) (0-0.5) K/uL Baso # (Auto) (0-0.2) K/uL Immature Gran # (Auto) (0.00-0.02) K/uL D-Dimer (0-500) ug/L FEU Sodium (136-145) mmol/L Potassium (3.5-5.1) mmol/L Chloride (98-107) mmol/L Carbon Dioxide (21-32) mmol/L Anion Gap (3-11) BUN (7-18) mg/dl Creatinine (0.6-1.2) mg/dl Est Cr Clr Drug Dosing ml/min Est GFR ( Amer) ml/min Est GFR (Non-Af Amer) ml/min BUN/Creatinine Ratio (10-20) Glucose (70-99) mg/dl Calcium (8.5-10.1) mg/dl Magnesium (1.8-2.4) mg/dl Total Bilirubin (0.2-1) mg/dl AST (15-37) U/L ALT (12-78) U/L Alkaline Phosphatase (45-117) U/L Total Creatine Kinase (26-192) U/L Troponin I < 0.015 (0-0.045) ng/ml NT-Pro-B Natriuret Pep (0-900) pg/ml Total Protein (6.4-8.2) gm/dl Albumin (3.4-5.0) gm/dl Globulin (2.5-4.0) gm/dl Albumin/Globulin Ratio (0.9-2) Lipase (73-393) U/L TSH (0.300-4.500) uIu/ml Specimen Hemolysis Lyme Disease IgG Ab Cancelled Negative Lyme Disease IgM Ab Cancelled Negative COVID-19 Eval Order SARS-CoV-2 (PCR) (Negative) Imaging Data Radiologist's Impression: Chest X-Ray 04/25/21 17:34 XR chest 1V portable CLINICAL HISTORY: chest pain COMPARISON STUDY: November 11, 2020 FINDINGS: No pneumothorax. No pleural effusion. No large infiltrates or consolidative lesions are seen. Cardiomediastinal silhouette is within normal limits in size. No significant pulmonary vascular congestion.. Osseous structures: Degenerative changes of the spine. IMPRESSION: 1. No acute pulmonary process. ACT 112: Negative or not required by law. The above report was generated using voice recognition software. It may contain grammatical, syntax or spelling errors. Electronically signed by: Liz Fall DO 04/25/2021 6:18 PM Venous Doppler Study 04/25/21 17:37 US venous doppler LE BI CLINICAL HISTORY: LE edema, calfpain COMPARISON STUDY: February 01, 2019 FINDINGS: Real-time and color flow Doppler imaging were performed. Flow was seen within the femoral, popliteal and calf veins with no intraluminal thrombus demon strated. The saphenous vein is patent. IMPRESSION: No evidence of deep venous thrombosis. ACT 112: Negative or not required by law. The above report was generated using voice recognition software. It may contain grammatical, syntax or spelling errors. Electronically signed by: Liz Fall DO 04/25/2021 7:18 PM ECG Data Attestation: I personally reviewed and interpreted this ECG as follows: Indication: + chest pain Rate (beats per minute): 79 Rhythm: + normal sinus ECG Intervals/blocks: + Normal QRS and + Normal QT ECG [place]: + Normal ECG ST segments: + Normal ST segments MDM Narrative This is a 55-year-old female who presents primarily for concern for lower extremity pain and possible DVT. Patient was sent here by her PCP. Patient did report chest pain and shortness of breath, however was also found to be markedly hypertensive. Patient initially related that she felt this was due to pain. She does have longstanding hypertension and takes lisinopril daily although did not take it later this morning. Labs are drawn and sent, Dopplers performed which were negative. Patient's chest x-ray reassuring, troponin negative, D-dimer negative. Patient was restarted on her lisinopril, and given additional dose of labetalol with some improvement. I then attempted to add Norvasc which I thought could be continued as an outpatient until she could follow-up with her PCP however blood pressure continued to be elevated. Patient denied any recurrent chest pain/pressure or shortness of breath, however was still having leg pain. Additional medications were added for pain in her legs however her blood pressure continued to elevate further. Due to concern for possible hypertensive urgency and uncontrolled hypertension at this time, case discussed with hospitalist for additional evaluation management. No evidence of hypertensive emergency. I do not suspect ACS, dissection, worsening thoracic aneurysm, PE, occult infection, ICH, or CVA. All results were discussed with the patient at bedside, she verbalized understanding and was in agreement with plan. Patient has never had any prior cardiac evaluation and may benefit from additional echo or other cardiology recommendations. An order was placed for continuous cardiac monitoring. The monitor shows a rate of _86 with normal sinus_ rhythm. Impression & Plan Bilateral leg pain, Chest pain, Hypertension Discharge Plan Visit Data Chief Complaint: Leg Injury/Pain Stated Complaint: REFERRED BY DOCTOR, POTENTIAL DVT IN LEG, PAIN ED Provider: Jaja Sanchez Discharge Problem: Bilateral leg pain, Chest pain, Hypertension Patient Disposition: Admitted As Inpatient Condition: Good Discharge Instructions Interventions: ED Discharge Assessment Last Done: 04/26/21 01:05 Discharge Problem: Chest pain Qualifiers: Chest pain type: unspecified Qualified Code(s): R07.9 - Chest pain, unspecified Hypertension Qualifiers: Hypertension type: primary hypertension Qualified Code(s): I10 - Essential (primary) hypertension
[2021-04-25] MEDS ORDERED: ACETAMINOPHEN 1,000 MG/100 ML VIAL IV STA (17:33)
[2021-04-25] MEDS ORDERED: lisinopril 40 MG TAB PO STA (17:33)
[2021-04-25] MEDS ORDERED: SODIUM CHLORIDE 0.9% 1000ML 1,000 ML IV SCH (17:45)
--- NOTE | 2021-04-25 18:19 | XRay Report ---
XR chest 1V portable CLINICAL HISTORY: chest pain COMPARISON STUDY: November 11, 2020 FINDINGS: No pneumothorax. No pleural effusion. No large infiltrates or consolidative lesions are seen. Cardiomediastinal silhouette is within normal limits in size. No significant pulmonary vascular congestion.. Osseous structures: Degenerative changes of the spine. IMPRESSION: 1. No acute pulmonary process. ACT 112: Negative or not required by law. The above report was generated using voice recognition software. It may contain grammatical, syntax o r spelling errors. Electronically signed by: Liz Fall DO 04/25/2021 6:18 PM
[2021-04-25 18:23] LABS: Basophils # (auto) 0.04 K/uL (0-0.2); Basophils % (auto) 0.5 %; Eosinophils # (auto) 0.23 K/uL (0-0.5); Eosinophils % (auto) 2.9 %; Hematocrit (blood only) 45.8 % (37-47); Hemoglobin 15.9 g/dL (12.0-16.0); Immature Granulocytes # (auto) 0.01 K/uL (0.00-0.02); Immature Granulocytes % (auto) 0.1 %; Lymphocytes # (auto) 1.67 K/uL (1.2-3.4); Lymphocytes % (auto) 21.4 %; Mean Corpuscular Hemoglobin 31.5 pg (25-34); Mean Corpuscular Hgb Conc 34.7 g/dL (32-36); Mean Corpuscular Volume 90.7 fL (80-100); Mean Platelet Volume 9.9 fL (7.4-10.4); Monocytes # (auto) 0.47 K/uL (0.11-0.59); Neutrophils # (auto) 5.39 K/uL (1.4-6.5); Neutrophils % (auto) 69.1 %; Platelet Count 238 K/uL (130-400); RDW Coefficient of Variation 13.3 % (11.5-14.5); RDW Standard Deviation 43.7 fL (36.4-46.3); Red Blood Count 5.05 M/uL (4.2-5.4); White Blood Count 7.81 K/uL (4.8-10.8)
[2021-04-25 18:32] LABS: D Dimer 490 ug/L FEU (0-500)
[2021-04-25 18:46] LABS: Alanine Aminotransferase 40 U/L (12-78); Albumin Level 3.8 gm/dl (3.4-5.0); Aspartate Aminotransferase 30 U/L (15-37); BUN Creatinine Ratio 14.1 (10-20); Blood Urea Nitrogen 13 mg/dl (7-18); Calcium 9.6 mg/dl (8.5-10.1); Carbon Dioxide 25 mmol/L (21-32); Chloride 107 mmol/L (98-107); Creatinine Clr Calc Pharmacy 74.9 ml/min; Est GFR (African American) 83.4 ml/min; Glucose 85 mg/dl (70-99); Lipase 215 U/L (73-393); Magnesium 2.2 mg/dl (1.8-2.4); Potassium 3.7 mmol/L (3.5-5.1); Sodium 138 mmol/L (136-145)
[2021-04-25 19:02] LABS: Albumin Globulin Ratio 0.9 (0.9-2); Alkaline Phosphatase 109 U/L (45-117); Bilirubin,Total 0.4 mg/dl (0.2-1); Creatine Kinase 85 U/L (26-192); Globulin 4.2 gm/dl (2.5-4.0); NT Pro B Type Natriuretic Pept 245 pg/ml (0-900); Troponin I < 0.015 ng/ml (0-0.045)
--- NOTE | 2021-04-25 19:20 | Ultrasound Report ---
US venous doppler LE BI CLINICAL HISTORY: LE edema, calfpain COMPARISON STUDY: February 01, 2019 FINDINGS: Real-time and color flow Doppler imaging were performed. Flow was seen within the femoral, popliteal and calf veins with no intraluminal thrombus demonstrated. The saphenous vein is patent. IMPRESSION: No evidence of deep venous thrombosis. ACT 112: Negative or not required by law. The above report was generated using voice recognition software. It may contain grammatical, syntax o r spelling errors. Electronically signed by: Liz Fall DO 04/25/2021 7:18 PM
[2021-04-25] MEDS ORDERED: LABETALOL HCL IV 5 MG/ML 20ML IV STA (19:30)
[2021-04-25] MEDS ORDERED: KETOROLAC TROMETHAMINE 15 MG/ML VIAL IV ONE (19:36)
[2021-04-25] MEDS ORDERED: amLODIPine BESYLATE 5 MG TAB PO ONE (20:51)
[2021-04-25] MEDS ORDERED: DICLOFENAC SOD 1% GEL 100 GM TUBE EXT STA (21:16)
[2021-04-25] MEDS ORDERED: metroNIDAZOLE 500 MG TAB PO STA (21:17)
[2021-04-25] MEDS ORDERED: CIPROFLOXACIN 500 MG TAB PO STA (21:17)
[2021-04-25] MEDS ORDERED: fentaNYL citrate 100 MCG/2 ML VIAL IV STA (22:43)
[2021-04-25 22:52] LABS: Lyme Ab IgG w/WB Rflx Negative (Negative); Lyme Ab IgM w/WB Rflx Negative (Negative)
[2021-04-26] MEDS ORDERED: CONSULT PHARMACY STA (00:38)
[2021-04-26] MEDS ORDERED: ALBUTEROL HFA 8 GM INHALER INH PRN (01:32)
[2021-04-26] MEDS ORDERED: HYDROmorphone INJ 0.5 MG/0.5 ML SYR IV PRN (01:32)
[2021-04-26] MEDS ORDERED: ACETAMINOPHEN 325 MG TAB PO PRN (01:32)
[2021-04-26] MEDS ORDERED: LABETALOL HCL IV 5 MG/ML 20ML IV PRN (01:32)
[2021-04-26] MEDS ORDERED: traMADol HCL 50 MG TABLET PO PRN (01:32)
[2021-04-26] MEDS ORDERED: NITROGLYCERIN SL 0.4 MG/TAB TAB SL PRN (01:32)
[2021-04-26] MEDS ORDERED: hydrOXYzine HCl 25 MG TAB PO PRN (01:32)
[2021-04-26] MEDS ORDERED: CIPROFLOXACIN CONSULT ACTIVE PRN (01:45)
[2021-04-26] MEDS ORDERED: CYCLOBENZAPRINE HCL 10 MG TAB PO PRN (01:47)
--- NOTE | 2021-04-26 02:26 | History and Physical Report ---
DATE OF ADMISSION: 04/26/2021. CHIEF COMPLAINT: Left lower extremity leg pain and also chest pain and also left lower quadrant abdominal pain. HISTORY OF PRESENT ILLNESS: This is a 55-year-old female with past medical history significant for sick euthyroid syndrome, acquired hypothyroidism, intermittent asthma without complication, hypertension, obesity, uterine leiomyoma, degenerative disk disease, history of tension headache, migraines, moderate depression, history of tobacco use disorder, history of insomnia, history of noncompliance with medical treatment. Presents with ongoing leg pain since last 10 days on the left lower extremity. Went to PCP's office and also complained of left lower quadrant abdominal pain and was sent here and she was also tested for COVID a couple of days ago outpatient which came back negative. COVID was tested negative here in the hospital because the patient was worried that she might be exposed to COVID as she was recently at a libertarian for anniversary and several people tested positive following this. The patient says for 1 week she is having occasional cough and some fever on and off and chest pain and shortness of breath. In the ER, she was saturating fine on room air. When she came in, blood pressure was high in 220s and she was attributing it to her leg pain. No lymphopenia on the CBC. D-dimer was okay. Troponin is negative. Venous Doppler in the right lower extremity is negative. Lyme screen was negative. EKG was okay, but the blood pressure was not getting better, so we were called for admission. The patient denies any diarrhea or constipation. She denies any blood in the stools or black stools. Normal bladder movements. Denies any nausea, no headache, no blurred visions, no earache, no runny nose, no sore throat. Currently, resting comfortably and hemodynamically stable. ALLERGIES: CEPHALOSPORINS, ERYTHROMYCIN, PENICILLIN, SULFA ANTIBIOTICS, TETRACYCLINE. PAST MEDICAL HISTORY: As mentioned above. PAST SURGICAL HISTORY: , colonoscopy, hysteroscopy, laparoscopic cholecystectomy, tonsillectomy, adenoidectomy, spinal fusion surgery. MEDICATIONS: The patient is on albuterol 2 puffs inhalation q.i.d. p.r.n., amlodipine 10 mg p.o. daily, cyclobenzaprine 10 mg p.o. at bedtime p.r.n., Cymbalta 30 mg p.o. daily, gabapentin 300 mg p.o. t.i.d., hydrochlorothiazide 50 mg p.o. daily, hydroxyzine 25 mg p.o. q. 6 hours p.r.n., levothyroxine 75 mcg p.o. daily, lisinopril 40 mg p.o. daily, Zofran 4 mg p.o. q. 6 hours p.r.n., tramadol 50 mg p.o. q. 4 hours p.r.n. FAMILY HISTORY: Significant for father had diabetes, CABG, hypertension; mother has heart disorder. SOCIAL HISTORY: . Smokes 1/2 pack a day for 34 years. Social drinking. Smokes marijuana. REVIEW OF SYSTEMS: As per HPI. Rest of her review of systems is negative. PHYSICAL EXAMINATION: GENERAL: The patient is obese, not in acute distress. VITAL SIGNS: Temperature 36.8, pulse 79, respiratory rate 19, blood pressure 180/104, oxygen 95% on room air. HEENT: Pupils equal, round and reactive to light. Oral mucosa moist. NECK: No JVD, no neck masses. CARDIOVASCULAR: S1 and S2 heard, regular rate and rhythm. No murmur, no gallop. RESPIRATORY SYSTEM: Normal AP diameter. No accessory muscle use. No wheezing, no crackles. ABDOMEN: Soft, bowel sounds present. Left lower quadrant tenderness present. Mild guarding, no rigidity, no distention. CENTRAL NERVOUS SYSTEM: Cranial nerves II-XII grossly intact, nonfocal. EXTREMITIES: Bilateral lower extremity, no edema, no erythema seen. Pain in the left lower extremity on movements. LABORATORY DATA: WBC 7.8, hemoglobin 15.9, hematocrit 45.8, platelets 238. D- dimer 496. Sodium 138, potassium 3.7, chloride 107, bicarb 25, BUN 13, creatinine 0.9, serum glucose 85, calcium 9.6, total magnesium 2.2, total bilirubin 0.4, AST 30, ALT 40, alkaline phosphatase 109. Total creatinine kinase 85. Troponin I less than 0.015. BNP of 245. Lipase 215. TSH 2.5. Lyme screen negative. SARS-CoV-2 PCR negative. IMAGING DATA: Venous Doppler, no DVT. Chest x-ray, no acute findings. EKG: Normal sinus rhythm at a rate of 79, no acute ST changes seen. ASSESSMENT AND PLAN: This is a 55-year-old female who presents with left lower extremity pain, also complains of chest pain and shortness of breath, and also shows elevated blood pressure and also complains of left lower quadrant abdominal pain. 1. Left lower extremity pain: Venous Doppler is negative. Ordering CT of abdomen and pelvis, we will follow the results. Pain control for now. 2. Hypertensive urgency: The patient is on amlodipine, hydrochlorothiazide, lisinopril at home. Blood pressure is running high here, she attributes it to her pain. We will place on IV labetalol p.r.n. Also, the patient complains of chest pain, shortness of breath. Follow serial enzymes, echocardiogram. We will keep her n.p.o. and consult cardiology in the a.m. for further recommendations. 3. Left lower quadrant abdominal pain: The patient thinks she might have diverticulitis. We will get a CT scan. Empirically start on Cipro and Flagyl. Follow the CT scan results. 4. Depression: Continue Cymbalta. 5. Hypothyroidism: Continue Synthroid. 6. Obesity: Needs counseling. 7. Deep venous thrombosis prophylaxis: Lovenox. DISPOSITION: Closely monitor in the [employer] tele. PT/OT prior to discharge. Social service to help with discharge planning. Job ID: [id number] [facility]
[2021-04-26] MEDS: metroNIDAZOLE 500 MG/100 ML BAG IV SCH ×3 (06:01→21:13)
[2021-04-26] MEDS: LEVOTHYROXINE SODIUM 75 MCG TABLET PO SCH (06:01)
[2021-04-26] MEDS: ENOXAPARIN INJ 40 MG/0.4 ML SYR SQ SCH ×2 (06:01→18:17)
[2021-04-26] MEDS: MoRPHine SULFATE 4 MG/ML 1 ML CARP\\VIAL IV PRN (06:08)
[2021-04-26] MEDS ORDERED: MoRPHine SULFATE 4 MG/ML 1 ML CARP\\VIAL IV STA (06:45)
[2021-04-26 08:05] LABS: Basophils # (auto) 0.04 K/uL (0-0.2); Basophils % (auto) 0.5 %; Eosinophils # (auto) 0.26 K/uL (0-0.5); Eosinophils % (auto) 3.1 %; Hemoglobin 14.7 g/dL (12.0-16.0); Immature Granulocytes # (auto) 0.01 K/uL (0.00-0.02); Immature Granulocytes % (auto) 0.1 %; Lymphocytes # (auto) 1.47 K/uL (1.2-3.4); Lymphocytes % (auto) 17.7 %; Mean Corpuscular Hemoglobin 31.1 pg (25-34); Mean Corpuscular Hgb Conc 34.2 g/dL (32-36); Mean Corpuscular Volume 91.1 fL (80-100); Monocytes # (auto) 0.45 K/uL (0.11-0.59); Monocytes % (auto) 5.4 %; Neutrophils # (auto) 6.06 K/uL (1.4-6.5); Neutrophils % (auto) 73.2 %; Platelet Count 205 K/uL (130-400); RDW Coefficient of Variation 13.2 % (11.5-14.5); RDW Standard Deviation 43.9 fL (36.4-46.3); Red Blood Count 4.72 M/uL (4.2-5.4); White Blood Count 8.29 K/uL (4.8-10.8)
[2021-04-26 08:18] LABS: BUN Creatinine Ratio 13.9 (10-20); Calcium 8.9 mg/dl (8.5-10.1); Creatinine Clr Calc Pharmacy 74.1 ml/min; Est GFR (African American) 82.3 ml/min; Magnesium 2.3 mg/dl (1.8-2.4); Potassium 3.7 mmol/L (3.5-5.1)
[2021-04-26] MEDS ORDERED: PROMETHAZINE HCL 12.5 MG in SODIUM CHLORIDE 0.9% 50 ML IV PRN (08:19)
--- NOTE | 2021-04-26 09:32 | Electrocardiogram Report ---
Test Reason : Blood Pressure : / mmHG Vent. Rate : 079 BPM Atrial Rate : 079 BPM P-R Int : 136 ms QRS Dur : 078 ms QT Int : 380 ms P-R-T Axes : 045 006 030 degrees QTc Int : 435 ms Normal sinus rhythm Normal ECG When compared with ECG of 20-OCT-2018 12:55, Questionable change in QRS axis Confirmed by Alf Pittman ([id number]) on 04/26/2021 9:32:27 AM Referred By: Joe Alba Confirmed By:Alf Pittman
[2021-04-26] MEDS: CIPROFLOXACIN / D5W 400 MG/200 ML BAG IV SCH ×2 (09:57→21:20)
[2021-04-26] MEDS: amLODIPine BESYLATE 5 MG TAB PO SCH (09:57)
[2021-04-26] MEDS: DULoxetine HCL 30 MG CAP PO SCH (10:00)
--- NOTE | 2021-04-26 10:01 | Electrocardiogram Report ---
Test Reason : Blood Pressure : / mmHG Vent. Rate : 067 BPM Atrial Rate : 067 BPM P-R Int : 154 ms QRS Dur : 080 ms QT Int : 422 ms P-R-T Axes : 062 020 019 degrees QTc Int : 445 ms Normal sinus rhythm Nonspecific T wave abnormality When compared with ECG of 25-APR-2021 17:57, (unconfirmed) Nonspecific T wave abnormality is new Confirmed by Alf Pittman ([id number]) on 04/26/2021 10:01:41 AM Referred By: Joe Alba Confirmed By:Alf Pittman
[2021-04-26] MEDS: GABAPENTIN 300 MG CAP PO SCH ×3 (10:02→21:18)
[2021-04-26] MEDS: lisinopril 40 MG TAB PO SCH (10:03)
[2021-04-26] MEDS: hydroCHLOROthiazide 25 MG TAB PO SCH (10:03)
--- NOTE | 2021-04-26 11:11 | CT Scan Report ---
CT OF THE ABDOMEN AND PELVIS WITHOUT CONTRAST CLINICAL HISTORY: LLQ ABDOMINAL PAIN COMPARISON STUDY: CT of the abdomen and pelvis January 31, 2018. TECHNIQUE: Axial images of the abdomen and pelvis were obtained without IV contrast. Images were revi ewed in the axial, sagittal, and coronal planes. Automated exposure control was utilized for the hal dy. A dose lowering technique was utilized adhering to the principles of ALARA. FINDINGS: Lung bases are unremarkable. No pneumatosis, free air or portal venous gas is present. No r enal, ureteral or bladder calculi are present. Evaluation of the remainder of the abdomen and pelvis is suboptimal on this unenhanced exam. There is no biliary ductal dilatation status post cholecystect mateusz. Unenhanced images of the spleen, adrenal glands and pancreas are unremarkable. Size of the splee n is at upper limits of normal. There is no evidence for a bowel obstruction. The appendix is normal. There is colonic diverticulosis. Note is made of an inflamed diverticulum of the distal descending c olon. There is mild adjacent infiltration and mild wall thickening. There is no free air or abscess. There is a suspected right fundal fibroid which is similar to prior CT. IMPRESSION: Acute diverticulitis of the distal descending colon. No free air or abscess. ACT 112: Negative or not required by law. Electronically signed by: Carlos Vargas M.D. 04/26/2021 11:10 AM
[2021-04-26 12:14] LABS: Appearance Urine Clear (Clear); Bacteria Urine Automated 1+ (Negative); Bilirubin Urine Negative (Negative); Blood Urine Negative (Negative); Color Urine Dark Yellow; Epithelial Cell Urine Auto 20-30 /lpf (0-5); Glucose Urine UA Negative (Negative); Ketones Urine Negative (Negative); Leukocyte Esterase Urine Trace (Negative); Nitrite Urine Negative (Negative); Protein Urine Negative (Negative); RBC Urine Automated 0-4 /hpf (0-4); Specific Gravity Urine 1.019 (1.000-1.030); Urobilinogen Urine Negative (Negative)
[2021-04-26] MEDS ORDERED: carvediloL 3.125 MG TAB PO ONE (13:58)
--- NOTE | 2021-04-26 13:58 | Hospitalist Progress Note ---
Date of Service April 26, 2021 Assessment & Plan (1) Acute diverticulitis: Plan: Has been complaining of abdominal pain with nausea and vomiting Denies any fever and chills CT of the abdomen did show acute diverticulitis involving descending colon Has been on intravenous ofloxacin and Flagyl This is her third or fourth attack of diverticulitis She is started with clears today and if she is feeling better she may be going home tomorrow (2) Chest pain: Plan: Atypical chest pain Appreciate cardiology input and recommendation Doubt any cardiac regional pain (3) Hypertension: Plan: Noted to have very high blood pressure at presentation Could be part of the problem with chest pain Blood pressure seems to be controlled right now (4) Asthma: Plan: No acute exacerbation (5) Depression: Plan: No acute symptoms Plan: Will start clear and advance diet as tolerated Discharge tomorrow Admission and Anticipated Discharge Date Admission Date: April 26, 2021 Subjective 04/26/2021 The patient was seen and examined in medical telemetry unit She has been complaining of left lower quadrant abdominal pain with nausea Denies any fever and no chills No chest pain and/or palpitation Review of Systems Review of Systems: All systems reviewed and are unremarkable except as noted below Gastrointestinal: + abdominal pain, + nausea and + vomiting Physical Exam Physical Exam: Sitting on bed with some discomfort in the abdomen Constitutional: well developed, well nourished, + ill appearing and + obese Eyes: PERRL, conjunctivae normal, anicteric sclerae ENMT: external ear and nose normal, oropharynx normal Respiratory: normal respiratory effort, lungs clear to auscultation Cardiovascular: Rate/Rhythm: regular rate and regular rhythm Heart Sounds: normal S1 and normal S2; no murmur Extremities: + edema (Trace edema bilaterally) Gastrointestinal (Abdomen): normal bowel sounds, soft, nontender, no hepatosplenomegaly Musculoskeletal: No acute arthritis in any joint Neurologic: PERRL, EOMI, accommodation nl, no face palsy, no dysarthria Lymphatic: no cervical or axillary lymphadenopathy Results & Data Results & Data ([facility]) Vital Signs (Past 12 Hours) Vital Signs Temp Pulse Pulse Pulse Resp BP BP 04/26/21 11:59 36.9 C 76 19 157/96 H 04/26/21 07:49 68 04/26/21 07:43 36.5 C 65 19 171/92 H 04/26/21 06:55 75 153/87 H 04/26/21 06:32 36.7 C 68 22 183/91 H 04/26/21 04:24 36.6 C 68 18 152/99 H 04/26/21 03:17 76 155/88 H 04/26/21 02:10 72 Pulse Ox 04/26/21 11:59 98 04/26/21 07:49 04/26/21 07:43 95 04/26/21 06:55 04/26/21 06:32 96 04/26/21 04:24 97 04/26/21 03:17 04/26/21 02:10 Laboratory Results Short CBC 04/25/21 04/26/21 Range/Units 17:34 07:55 WBC 7.81 8.29 (4.8-10.8) K/uL Hgb 15.9 14.7 (12.0-16.0) g/dL Hct 45.8 43.0 (37-47) % Plt Count 238 205 (130-400) K/uL BMP 04/25/21 04/26/21 17:34 07:55 Sodium 138 140 Potassium 3.7 3.7 Chloride 107 109 H Carbon Dioxide 25 25 BUN 13 13 Creatinine 0.90 0.91 Glucose 85 104 H Calcium 9.6 8.9 Cardiac Enzymes 04/25/21 04/25/21 04/26/21 Range/Units 17:34 21:36 07:55 Total Creatine Kinase 85 (26-192) U/L Troponin I < 0.015 < 0.015 < 0.015 (0-0.045) ng/ml 04/26/21 Range/Units 11:31 Total Creatine Kinase (26-192) U/L Troponin I < 0.015 (0-0.045) ng/ml Liver Function 04/25/21 Range/Units 17:34 Total Bilirubin 0.4 (0.2-1) mg/dl AST 30 (15-37) U/L ALT 40 (12-78) U/L Alkaline Phosphatase 109 (45-117) U/L Albumin 3.8 (3.4-5.0) gm/dl Urine 04/26/21 Range/Units 12:00 Urine Color Dark Yellow Urine Appearance Clear (Clear) Urine pH 6.0 (4.5-7.5) Ur Specific [place] 1.019 (1.000-1.030) Urine Protein Negative (Negative) Urine Glucose (UA) Negative (Negative) Medications Administered Short CBC 04/25/21 04/26/21 Range/Units 17:34 07:55 WBC 7.81 8.29 (4.8-10.8) K/uL Hgb 15.9 14.7 (12.0-16.0) g/dL Hct 45.8 43.0 (37-47) % Plt Count 238 205 (130-400) K/uL BMP 04/25/21 04/26/21 17:34 07:55 Sodium 138 140 Potassium 3.7 3.7 Chloride 107 109 H Carbon Dioxide 25 25 BUN 13 13 Creatinine 0.90 0.91 Glucose 85 104 H Calcium 9.6 8.9 Cardiac Enzymes 04/25/21 04/25/21 04/26/21 Range/Units 17:34 21:36 07:55 Total Creatine Kinase 85 (26-192) U/L Troponin I < 0.015 < 0.015 < 0.015 (0-0.045) ng/ml 04/26/21 Range/Units 11:31 Total Creatine Kinase (26-192) U/L Troponin I < 0.015 (0-0.045) ng/ml Liver Function 04/25/21 Range/Units 17:34 Total Bilirubin 0.4 (0.2-1) mg/dl AST 30 (15-37) U/L ALT 40 (12-78) U/L Alkaline Phosphatase 109 (45-117) U/L Albumin 3.8 (3.4-5.0) gm/dl Urine 04/26/21 Range/Units 12:00 Urine Color Dark Yellow Urine Appearance Clear (Clear) Urine pH 6.0 (4.5-7.5) Ur Specific [place] 1.019 (1.000-1.030) Urine Protein Negative (Negative) Urine Glucose (UA) Negative (Negative) (1) Chest pain Chest pain type: unspecified Qualified Code(s): R07.9 - Chest pain, unspecified (2) Hypertension Hypertension type: primary hypertension Qualified Code(s): I10 - Essential (primary) hypertension
--- NOTE | 2021-04-26 13:58 | Cardiology Consultation ---
Date of Consultation April 26, 2021 Assessment & Plan (1) Hypertension: Blood pressure elevated during hospitalization in part exacerbated by left lower quadrant discomfort. Outpatient records reviewed demonstrating elevated ambulatory blood pressure readings over the past 6-12 months. Recommend addition of carvedilol 3.125 mg twice daily in addition to current antihypertensive medications. (2) Chest pain: Atypical features and possibly related to hypertensive urgency. She is currently asymptomatic. No evidence of acute coronary syndrome. Denies exertional anginal symptoms during daily activities. Recommend outpatient stress testing when diverticulitis has resolved and blood pressure control improved. (3) Tobacco use: Smoking cessation advised. (4) Family history of premature CAD: Recommend fasting lipid panel in the outpatient setting with consideration for statin therapy. If lipids are unremarkable, consider further restratification with high-sensitivity CRP and/or assessment of Lpa. (5) Diverticulitis: Management as per internal medicine. History of Present Illness Reason for Consultation: Chest pain, hypertensive urgency Requesting Physician: Dr. Jiménez Attending Physician: Kandice Cunningham MD History of Present Illness 55-year-old female evaluated by primary care provider yesterday 04/25/2021 with left lower quadrant abdominal pain. Diagnosed with diverticulitis. This is the patient's third or fourth bout of diverticulitis throughout her lifetime. Blood pressure elevated with associated chest pressure. She was subsequent referred to the ER. Observed on telemetry overnight. Cardiac enzymes are undetectable. No ischemic ECG changes. Bedside 2D transthoracic echocardiogram performed this a.m. without regional wall motion abnormality. Her blood pressure remains elevated with systolic blood pressure in the 150s, diastolic blood pressures in the 90s. She is chronically treated with 3 drug therapy, lisinopril, hydrochlorothiazide, and amlodipine. Currently patient is resting comfortably. She denies chest discomfort or heaviness currently. Left lower quadrant discomfort unchanged. Received a dose of IV morphine this a.m. with associated nausea and vomiting. Complains of intermittent pedal edema at home. She does not assess home blood pressure regularly. Denies any recent asthma exacerbations. Voices concern regarding family history of coronary disease, father undergoing CABG in his 40s. Patient denies orthopnea, or paroxysmal nocturnal dyspnea. No palpitations, lightheadedness, dizziness, syncope, or near syncope. Denies personal history of coronary disease, diabetes, congestive heart failure, or rheumatic fever as a child. Allergies Allergy/AdvReac Type Severity Reaction Status Date / Time Cephalosporins Allergy Severe Anaphylaxis Verified 04/25/21 20:56 erythromycin base Allergy Severe Anaphylaxis Verified 04/25/21 20:56 Penicillins Allergy Severe Anaphylaxis Verified 04/25/21 20:56 Sulfa (Sulfonamide Allergy Severe Anaphylaxis Verified 04/25/21 20:56 Antibiotics) Tetracyclines Allergy Severe Anaphylaxis Verified 04/25/21 20:56 Home Medications Medication Instructions Recorded Confirmed Type gabapentin 100 mg capsule 300 mg PO TID 08/31/18 04/25/21 History levothyroxine 75 mcg capsule 75 mcg PO DAILY 08/31/18 04/25/21 History albuterol sulfate 90 mcg/actuation 2 puff INHALATION QID PRN 10/17/18 04/25/21 History aerosol inhaler hydroxyzine HCl 25 mg tablet 25 mg PO Q6 PRN 11/22/18 04/25/21 History tramadol 50 mg tablet 50 mg PO Q4H PRN #30 tab 11/23/18 04/25/21 Rx amlodipine 10 mg tablet 10 mg PO DAILY 04/25/21 04/25/21 History ciprofloxacin HCl 500 mg tablet 500 mg PO BID #14 tab 04/25/21 Rx (Cipro) cyclobenzaprine 10 mg tablet 10 mg PO HS PRN 04/25/21 04/25/21 History duloxetine 30 mg capsule,delayed 30 mg PO DAILY 04/25/21 04/25/21 History release (Cymbalta) hydrochlorothiazide 50 mg tablet 50 mg PO DAILY 04/25/21 04/25/21 History lisinopril 40 mg tablet 40 mg PO DAILY 04/25/21 04/25/21 History metronidazole 500 mg tablet 500 mg PO Q8H 7 Days #21 tab 04/25/21 Rx (Flagyl) ondansetron HCl 4 mg tablet 4 mg PO Q6H PRN 04/25/21 04/25/21 History Patient History Medical History Asthma Using albuterol inhaler multiple times per day in the winter, rare use in summer months Chronic back pain LUMBAR Degenerative disc disease Depression Diverticulitis Essential (primary) hypertension Hx of thyroid disease Hypothyroidism Surgical History History of History of endometrial ablation History of lumbar spinal fusion Hx laparoscopic cholecystectomy Hx of elbow surgery Hx of tonsillectomy Social History Smoking Status: Current every day smoker Tobacco Type: Cigarettes Cigarettes Per Day: 1/2 pack; Second Hand Exposure: No; Hx Alcohol Use: Yes Alcohol type: beer Hx Substance Use: Yes Last Used Substance: Days (ago) Substance Use Type Other:: CBD edibles Preferred Language: Bengali Communication Ability: Effective Clinical Quality Assurance Specialist Required: No Beliefs That Will Affect Care: None marital status: Current Living Situation: Spouse Other Information That Helps Us Care for You: No Feels Safe at Home: Yes Safety Concerns: Feels Safe At This Time Assistive Devices: None Review of Systems Review of Systems: All systems reviewed & are unremarkable except as noted in Subjective Results & Data ([facility]) Vital Signs (Past 12 Hours) Vital Signs Temp Pulse Pulse Pulse Resp BP BP 04/26/21 11:59 36.9 C 76 19 157/96 H 04/26/21 07:49 68 04/26/21 07:43 36.5 C 65 19 171/92 H 04/26/21 06:55 75 153/87 H 04/26/21 06:32 36.7 C 68 22 183/91 H 04/26/21 04:24 36.6 C 68 18 152/99 H 04/26/21 03:17 76 155/88 H 04/26/21 02:10 72 Pulse Ox 04/26/21 11:59 98 04/26/21 07:49 04/26/21 07:43 95 04/26/21 06:55 04/26/21 06:32 96 04/26/21 04:24 97 04/26/21 03:17 04/26/21 02:10 (1) Chest pain Chest pain type: unspecified Qualified Code(s): R07.9 - Chest pain, unspecified (2) Hypertension Hypertension type: primary hypertension Qualified Code(s): I10 - Essential (primary) hypertension
[2021-04-26] MEDS: carvediloL 3.125 MG TAB PO SCH (21:18)
[2021-04-27] MEDS: metroNIDAZOLE 500 MG/100 ML BAG IV SCH ×3 (06:08→22:24)
[2021-04-27] MEDS: LEVOTHYROXINE SODIUM 75 MCG TABLET PO SCH (06:13)
[2021-04-27] MEDS: ENOXAPARIN INJ 40 MG/0.4 ML SYR SQ SCH ×3 (06:13→17:16)
[2021-04-27] MEDS: hydroCHLOROthiazide 25 MG TAB PO SCH (08:06)
[2021-04-27] MEDS: carvediloL 3.125 MG TAB PO SCH ×2 (08:06→20:08)
[2021-04-27] MEDS: DULoxetine HCL 30 MG CAP PO SCH (08:06)
[2021-04-27] MEDS: amLODIPine BESYLATE 5 MG TAB PO SCH (08:06)
[2021-04-27] MEDS: GABAPENTIN 300 MG CAP PO SCH ×3 (08:07→20:08)
[2021-04-27] MEDS: CIPROFLOXACIN / D5W 400 MG/200 ML BAG IV SCH ×2 (08:07→20:09)
[2021-04-27] MEDS: lisinopril 40 MG TAB PO SCH (08:07)
[2021-04-27 08:54] LABS: Basophils # (auto) 0.03 K/uL (0-0.2); Basophils % (auto) 0.3 %; Eosinophils # (auto) 0.23 K/uL (0-0.5); Eosinophils % (auto) 2.7 %; Hematocrit (blood only) 41.1 % (37-47); Immature Granulocytes # (auto) 0.01 K/uL (0.00-0.02); Immature Granulocytes % (auto) 0.1 %; Lymphocytes # (auto) 1.54 K/uL (1.2-3.4); Lymphocytes % (auto) 17.8 %; Mean Corpuscular Hemoglobin 30.8 pg (25-34); Mean Corpuscular Hgb Conc 34.1 g/dL (32-36); Mean Corpuscular Volume 90.3 fL (80-100); Mean Platelet Volume 9.8 fL (7.4-10.4); Monocytes # (auto) 0.44 K/uL (0.11-0.59); Monocytes % (auto) 5.1 %; Neutrophils # (auto) 6.42 K/uL (1.4-6.5); Platelet Count 200 K/uL (130-400); RDW Standard Deviation 43.1 fL (36.4-46.3); Red Blood Count 4.55 M/uL (4.2-5.4); White Blood Count 8.67 K/uL (4.8-10.8)
[2021-04-27 09:12] LABS: BUN Creatinine Ratio 11.6 (10-20); Creatinine Clr Calc Pharmacy 70.8 ml/min; Est GFR (African American) 78.2 ml/min; Est GFR (Non-African American) 67.4 ml/min; Phosphorus 2.8 mg/dl (2.5-4.9); Potassium 3.5 mmol/L (3.5-5.1)
[2021-04-27] MEDS: MoRPHine SULFATE 4 MG/ML 1 ML CARP\\VIAL IV PRN (10:15)
--- NOTE | 2021-04-27 12:18 | Hospitalist Progress Note ---
Date of Service April 27, 2021 Assessment & Plan (1) Acute diverticulitis: Plan: Has been complaining of abdominal pain with nausea and vomiting Denies any fever and chills CT of the abdomen did show acute diverticulitis involving descending colon Has been on intravenous ofloxacin and Flagyl This is her third or fourth attack of diverticulitis which is widely spaced Continues to have abdominal pain without any more nausea and or vomiting Her bowel has not moved Diet advanced as tolerated and if well will be discharged tomorrow (2) Chest pain: Plan: Atypical chest pain Appreciate cardiology input and recommendation Doubt any cardiac regional pain No more cardiac symptoms (3) Hypertension: Plan: Noted to have very high blood pressure at presentation Could be part of the problem with chest pain Blood pressure seems to be controlled right now (4) Asthma: Plan: No acute exacerbation (5) Depression: Plan: No acute symptoms Plan: Will start clear and advance diet as tolerated Discharge tomorrow Admission and Anticipated Discharge Date Admission Date: April 26, 2021 Subjective 04/26/2021 The patient was seen and examined in medical telemetry unit She has been complaining of left lower quadrant abdominal pain with nausea Denies any fever and no chills No chest pain and/or palpitation 04/27/2021 The patient was seen and examined in medical telemetry unit She complains to have pain in the left lower quadrant and at the back without any more nausea and or vomiting Denies any fever and/or chills Has not had her bowel movement Review of Systems Review of Systems: All systems reviewed and are unremarkable except as noted below Gastrointestinal: + abdominal pain, + nausea and + vomiting Physical Exam Physical Exam: Sitting on bed with some discomfort in the abdomen Constitutional: well developed, well nourished, + ill appearing and + obese Eyes: PERRL, conjunctivae normal, anicteric sclerae ENMT: external ear and nose normal, oropharynx normal Respiratory: normal respiratory effort, lungs clear to auscultation Cardiovascular: Rate/Rhythm: regular rate and regular rhythm Heart Sounds: normal S1 and normal S2; no murmur Extremities: + edema (Trace edema bilaterally) Gastrointestinal (Abdomen): Inspection/Auscultation: normal bowel sounds; abdomen not distended Percussion/Palpation: + abdomen tender (Left lower quadrant) and abdomen soft; no guarding and abdomen not rigid Musculoskeletal: No acute arthritis in any joint Neurologic: PERRL, EOMI, accommodation nl, no face palsy, no dysarthria Lymphatic: no cervical or axillary lymphadenopathy Results & Data Results & Data ([facility]) Vital Signs (Past 12 Hours) Vital Signs Temp Pulse Pulse Resp BP Pulse Ox 04/27/21 12:13 36.9 C 68 17 137/81 96 04/27/21 07:55 37.0 C 79 18 146/79 H 95 04/27/21 07:20 73 04/27/21 04:06 36.9 C 78 20 159/88 H 95 Laboratory Results Short CBC 04/27/21 Range/Units 08:46 WBC 8.67 (4.8-10.8) K/uL Hgb 14.0 (12.0-16.0) g/dL Hct 41.1 (37-47) % Plt Count 200 (130-400) K/uL BMP 04/27/21 08:46 Sodium 136 Potassium 3.5 Chloride 103 Carbon Dioxide 26 BUN 11 Creatinine 0.95 Glucose 125 H Calcium 9.0 Urine 04/26/21 Range/Units 12:00 Urine Color Dark Yellow Urine Appearance Clear (Clear) Urine pH 6.0 (4.5-7.5) Ur Specific [place] 1.019 (1.000-1.030) Urine Protein Negative (Negative) Urine Glucose (UA) Negative (Negative) Medications Administered Current Inpatient Medications Acetaminophen (Acetaminophen 325 Mg Tab) 650 mg PO Q4H PRN PRN Reason: Pain or Fever Stop: 05/26/21 01:31 Albuterol (Albuterol Hfa 8 Gm Inhaler) 2 puffs INH QIDR PRN PRN Reason: Wheezing Stop: 05/26/21 01:31 Amlodipine Besylate (Amlodipine Besylate 5 Mg Tab) 10 mg PO DAILY [facility] Stop: 05/26/21 08:59 Last Admin: 04/27/21 08:06 Dose: 10 mg Documented by: Carvedilol (Carvedilol 3.125 Mg Tab) 3.125 mg PO BID [facility] Stop: 05/26/21 20:59 Last Admin: 04/27/21 08:06 Dose: 3.125 mg Documented by: Cyclobenzaprine HCl (Cyclobenzaprine Hcl 10 Mg Tab) 10 mg PO HS PRN PRN Reason: Muscle Pain Stop: 05/26/21 01:46 Duloxetine HCl (Duloxetine Hcl 30 Mg Cap) 30 mg PO DAILY [facility] Stop: 05/26/21 08:59 Last Admin: 04/27/21 08:06 Dose: 30 mg Documented by: Enoxaparin Sodium (Enoxaparin Inj 40 Mg/0.4 Ml Syr) 40 mg SQ Q12H [facility] Stop: 05/26/21 05:59 Last Admin: 04/27/21 06:15 Dose: Not Given Documented by: Gabapentin (Gabapentin 300 Mg Cap) 300 mg PO TID [facility] Stop: 05/26/21 08:59 Last Admin: 04/27/21 08:07 Dose: 300 mg Documented by: Hydrochlorothiazide (Hydrochlorothiazide 25 Mg Tab) 50 mg PO DAILY [facility] Stop: 05/26/21 08:59 Last Admin: 04/27/21 08:06 Dose: 50 mg Documented by: Hydroxyzine HCl (Hydroxyzine Hcl 25 Mg Tab) 25 mg PO Q6 PRN PRN Reason: Anxiety Stop: 05/26/21 01:31 Ciprofloxacin (Cipro / D5w) 400 mg in 200 mls @ 100 mls/hr IV Q12H [facility]; Protocol Stop: 05/06/21 08:59 Last Infusion: 04/27/21 10:47 Dose: Infused Documented by: Metronidazole (Flagyl) 500 mg in 100 mls @ 100 mls/hr IV Q8H [facility] Stop: 05/06/21 05:59 Last Infusion: 04/27/21 07:20 Dose: Infused Documented by: Promethazine HCl 12.5 mg/ (Sodium Chloride) 50.5 mls @ 202 mls/hr IV Q6H PRN PRN Reason: Nausea And Vomiting Stop: 05/26/21 08:18 Last Infusion: 04/26/21 09:56 Dose: Infused Documented by: Labetalol HCl (Labetalol Hcl Iv 5 Mg/Ml 20ml) 10 mg IV Q4H PRN PRN Reason: Hypertension Stop: 05/26/21 01:31 Last Admin: 04/26/21 02:01 Dose: 10 mg Documented by: Levothyroxine Sodium (Levothyroxine Sodium 75 Mcg Tablet) [facility] Stop: 05/26/21 06:29 Last Admin: 04/27/21 06:13 Dose: 75 mcg Documented by: Lisinopril (Lisinopril 40 Mg Tab) 40 mg PO DAILY [facility] Stop: 05/26/21 08:59 Last Admin: 04/27/21 08:07 Dose: 40 mg Documented by: Miscellaneous Information (Ciprofloxacin Consult Active) 1 ea N/A UD PRN PRN Reason: Consult Stop: 05/26/21 01:44 Morphine Sulfate (Morphine Sulfate 4 Mg/Ml 1 Ml Carp\Vial) 3 mg IV Q3H PRN PRN Reason: Pain Stop: 05/10/21 02:09 Last Admin: 04/27/21 10:15 Dose: 3 mg Documented by: Nitroglycerin (Nitroglycerin Sl 0.4 Mg/Tab Tab) 0.4 mg SL UD PRN PRN Reason: Chest Pain Stop: 05/26/21 01:31 Last Admin: 04/26/21 06:43 Dose: 0.4 mg Documented by: Tramadol HCl (Tramadol Hcl 50 Mg Tablet) 50 mg PO Q4H PRN PRN Reason: Pain, Severe Stop: 05/26/21 01:31 (1) Chest pain Chest pain type: unspecified Qualified Code(s): R07.9 - Chest pain, unspecified (2) Hypertension Hypertension type: primary hypertension Qualified Code(s): I10 - Essential (primary) hypertension
--- NOTE | 2021-04-27 14:00 | Cardiology Progress Note ---
Date of Service April 27, 2021 Assessment & Plan (1) Hypertension: Plan: Blood pressure improved with pain control and addition of carvedilol. Blood pressure elevated during hospitalization exacerbated by left lower quadrant discomfort. Outpatient records reviewed demonstrating elevated ambulatory blood pressure readings over the past 6-12 months. Continue carvedilol in addition to previously ordered outpatient antihypertensive medications. (2) Chest pain: Plan: Chest pain with atypical features noted on presentation. Symptoms have resolved without recurrence during hospitalization. Possibly related to hypertensive urgency. No evidence of acute coronary syndrome. Denies exertional anginal symptoms during daily activities. Recommend outpatient stress testing when diverticulitis has resolved and blood pressure control improved. (3) Tobacco use: Plan: Smoking cessation advised. (4) Family history of premature CAD: Plan: Recommend fasting lipid panel in the outpatient setting with consideration for statin therapy. If lipids are unremarkable, consider further restratification with high-sensitivity CRP and/or assessment of Lpa. (5) Diverticulitis: Plan: Management as per internal medicine. Admission and Anticipated Discharge Date Admission Date: April 26, 2021 Subjective Patient seen examined the bedside. Continues to note left lower quadrant discomfort. Telemetry reveals sinus rhythm in the 70s. No chest pain or shortness of breath. Blood pressure improved with addition of carvedilol. Review of Systems Review of Systems: All systems reviewed & are unremarkable except as noted in Subjective Physical Exam Constitutional: well developed, well nourished and + obese Respiratory: normal respiratory effort; no respiratory distress, no labored breathing and no retractions Auscultation: lungs clear to auscultation bilaterally; no crackles, no rales, no rhonchi and no wheezes Cardiovascular: Rate/Rhythm: regular rate and regular rhythm Heart Sounds: normal S1 and normal S2; no gallop, no murmur and no cardiac rub Vessels: radial pulses present; no JVD Gastrointestinal (Abdomen): Inspection/Auscultation: abdomen normal to inspection and normal bowel sounds; abdomen not distended Percussion/Palpation: + abdomen tender (Left lower quadrant) and abdomen soft; no guarding and abdomen not rigid Neurologic: CN's II-XI intact bilaterally and moves all extremities; no focal motor deficits Motor/Sensory: no tremor Psychiatric: A+Ox3, euthymic affect Results & Data ([facility]) Vital Signs (Past 12 Hours) Vital Signs Temp Pulse Pulse Resp BP Pulse Ox 04/27/21 12:13 36.9 C 68 17 137/81 96 04/27/21 07:55 37.0 C 79 18 146/79 H 95 04/27/21 07:20 73 04/27/21 04:06 36.9 C 78 20 159/88 H 95 (1) Hypertension Hypertension type: primary hypertension Qualified Code(s): I10 - Essential (primary) hypertension (2) Chest pain Chest pain type: unspecified Qualified Code(s): R07.9 - Chest pain, unspecified
[2021-04-28] MEDS: MoRPHine SULFATE 4 MG/ML 1 ML CARP\\VIAL IV PRN (00:13)
[2021-04-28] MEDS: metroNIDAZOLE 500 MG/100 ML BAG IV SCH (06:08)
[2021-04-28] MEDS: LEVOTHYROXINE SODIUM 75 MCG TABLET PO SCH (06:11)
[2021-04-28] MEDS: ENOXAPARIN INJ 40 MG/0.4 ML SYR SQ SCH (06:13)
[2021-04-28 06:34] LABS: Basophils # (auto) 0.04 K/uL (0-0.2); Basophils % (auto) 0.6 %; Eosinophils # (auto) 0.27 K/uL (0-0.5); Eosinophils % (auto) 3.7 %; Hematocrit (blood only) 43.2 % (37-47); Hemoglobin 14.8 g/dL (12.0-16.0); Immature Granulocytes # (auto) 0.02 K/uL (0.00-0.02); Immature Granulocytes % (auto) 0.3 %; Lymphocytes % (auto) 26.2 %; Mean Corpuscular Hemoglobin 30.9 pg (25-34); Mean Corpuscular Hgb Conc 34.3 g/dL (32-36); Mean Corpuscular Volume 90.2 fL (80-100); Mean Platelet Volume 9.9 fL (7.4-10.4); Monocytes # (auto) 0.69 K/uL (0.11-0.59); Monocytes % (auto) 9.5 %; Neutrophils # (auto) 4.32 K/uL (1.4-6.5); Neutrophils % (auto) 59.7 %; Platelet Count 232 K/uL (130-400); RDW Coefficient of Variation 12.9 % (11.5-14.5); RDW Standard Deviation 42.9 fL (36.4-46.3); Red Blood Count 4.79 M/uL (4.2-5.4); White Blood Count 7.24 K/uL (4.8-10.8)
[2021-04-28 07:10] LABS: BUN Creatinine Ratio 15.8 (10-20); Calcium 9.3 mg/dl (8.5-10.1); Creatinine Clr Calc Pharmacy 62.4 ml/min; Est GFR (African American) 67.7 ml/min; Est GFR (Non-African American) 58.4 ml/min; Potassium 3.7 mmol/L (3.5-5.1)
[2021-04-28] MEDS: lisinopril 40 MG TAB PO SCH (08:43)
[2021-04-28] MEDS: DULoxetine HCL 30 MG CAP PO SCH (08:44)
[2021-04-28] MEDS: CIPROFLOXACIN / D5W 400 MG/200 ML BAG IV SCH (08:44)
[2021-04-28] MEDS: GABAPENTIN 300 MG CAP PO SCH ×2 (08:44→13:43)
[2021-04-28] MEDS: carvediloL 3.125 MG TAB PO SCH (08:45)
[2021-04-28] MEDS: amLODIPine BESYLATE 5 MG TAB PO SCH (08:45)
[2021-04-28] MEDS: hydroCHLOROthiazide 25 MG TAB PO SCH (08:45)
--- NOTE | 2021-04-28 09:30 | Electrocardiogram Report ---
Test Reason : Blood Pressure : / mmHG Vent. Rate : 070 BPM Atrial Rate : 070 BPM P-R Int : 140 ms QRS Dur : 084 ms QT Int : 418 ms P-R-T Axes : 069 051 062 degrees QTc Int : 451 ms Normal sinus rhythm Normal ECG When compared with ECG of 26-APR-2021 06:32, Nonspecific T wave abnormality no longer evident in Inferior leads Confirmed by Aleksey Leigh ([id number]) on 04/28/2021 9:30:11 AM Referred By: Joe Alba Confirmed By:Aleksey Leigh
--- NOTE | 2021-04-28 11:28 | Hospitalist Progress Note ---
Date of Service April 28, 2021 Assessment & Plan (1) Acute diverticulitis: Plan: Has been complaining of abdominal pain with nausea and vomiting Denies any fever and chills CT of the abdomen did show acute diverticulitis involving descending colon Has been on intravenous ofloxacin and Flagyl This is her third or fourth attack of diverticulitis which is widely spaced Continues to have abdominal pain without any more nausea and or vomiting Her bowel has not moved Diet advanced as tolerated and if well will be discharged tomorrow Still has significant pain in the left lower quadrant but the patient wants to go home Has been tolerating regular diet and antibiotic has been changed to oral Be discharged home this afternoon (2) Chest pain: Plan: Atypical chest pain Appreciate cardiology input and recommendation Doubt any cardiac regional pain No more cardiac symptoms (3) Hypertension: Plan: Noted to have very high blood pressure at presentation Could be part of the problem with chest pain Blood pressure seems to be controlled right now Her blood pressure is well controlled (4) Asthma: Plan: No acute exacerbation (5) Depression: Plan: No acute symptoms Plan: Will start clear and advance diet as tolerated Discharge regular diet Has been ambulating without any difficulty We discharged home this afternoon and going back to work on Wednesday next Admission and Anticipated Discharge Date Admission Date: April 26, 2021 Subjective 04/26/2021 The patient was seen and examined in medical telemetry unit She has been complaining of left lower quadrant abdominal pain with nausea Denies any fever and no chills No chest pain and/or palpitation 04/27/2021 The patient was seen and examined in medical telemetry unit She complains to have pain in the left lower quadrant and at the back without any more nausea and or vomiting Denies any fever and/or chills Has not had her bowel movement 04/28/2021 The patient was seen and examined in medical telemetry unit Her abdominal pain is much improved and denies any nausea, vomiting No fever and no chills She has been tolerating regular diet and will be sent home this afternoon Review of Systems Review of Systems: All systems reviewed and are unremarkable except as noted below Gastrointestinal: + abdominal pain; no nausea and no vomiting Physical Exam Physical Exam: Sitting on bed with some discomfort in the abdomen Constitutional: well developed, well nourished, + ill appearing and + obese Eyes: PERRL, conjunctivae normal, anicteric sclerae ENMT: external ear and nose normal, oropharynx normal Respiratory: normal respiratory effort, lungs clear to auscultation Cardiovascular: Rate/Rhythm: regular rate and regular rhythm Heart Sounds: normal S1 and normal S2; no murmur Extremities: + edema (Trace edema bilaterally) Gastrointestinal (Abdomen): normal bowel sounds, soft, nontender, no hepatosplenomegaly Inspection/Auscultation: normal bowel sounds; abdomen not distended Percussion/Palpation: abdomen soft; abdomen nontender (Left lower quadrant), no guarding and abdomen not rigid Neurologic: PERRL, EOMI, accommodation nl, no face palsy, no dysarthria Lymphatic: no cervical or axillary lymphadenopathy Results & Data Results & Data ([facility]) Vital Signs (Past 12 Hours) Vital Signs Temp Pulse Pulse Resp BP BP Pulse Ox 04/28/21 11:00 36.9 C 67 18 120/69 98 04/28/21 07:19 66 04/28/21 07:00 36.8 C 68 18 132/73 95 04/28/21 04:14 72 04/28/21 04:00 36.8 C 72 18 143/80 H 94 04/28/21 00:27 36.9 C 77 18 146/89 H 93 Laboratory Results Short CBC 04/28/21 Range/Units 06:07 WBC 7.24 (4.8-10.8) K/uL Hgb 14.8 (12.0-16.0) g/dL Hct 43.2 (37-47) % Plt Count 232 (130-400) K/uL BMP 04/28/21 06:07 Sodium 136 Potassium 3.7 Chloride 102 Carbon Dioxide 32 BUN 17 D Creatinine 1.07 Glucose 90 Calcium 9.3 Medications Administered Current Inpatient Medications Acetaminophen (Acetaminophen 325 Mg Tab) 650 mg PO Q4H PRN PRN Reason: Pain or Fever Stop: 05/26/21 01:31 Albuterol (Albuterol Hfa 8 Gm Inhaler) 2 puffs INH QIDR PRN PRN Reason: Wheezing Stop: 05/26/21 01:31 Amlodipine Besylate (Amlodipine Besylate 5 Mg Tab) 10 mg PO DAILY [facility] Stop: 05/26/21 08:59 Last Admin: 04/28/21 08:45 Dose: 10 mg Documented by: Carvedilol (Carvedilol 3.125 Mg Tab) 3.125 mg PO BID [facility] Stop: 05/26/21 20:59 Last Admin: 04/28/21 08:45 Dose: 3.125 mg Documented by: Ciprofloxacin (Ciprofloxacin 500 Mg Tab) 500 mg PO BID [facility]; Protocol Stop: 05/06/21 20:59 Cyclobenzaprine HCl (Cyclobenzaprine Hcl 10 Mg Tab) 10 mg PO HS PRN PRN Reason: Muscle Pain Stop: 05/26/21 01:46 Duloxetine HCl (Duloxetine Hcl 30 Mg Cap) 30 mg PO DAILY [facility] Stop: 05/26/21 08:59 Last Admin: 04/28/21 08:44 Dose: 30 mg Documented by: Enoxaparin Sodium (Enoxaparin Inj 40 Mg/0.4 Ml Syr) 40 mg SQ Q12H [facility] Stop: 05/26/21 05:59 Last Admin: 04/28/21 06:13 Dose: Not Given Documented by: Gabapentin (Gabapentin 300 Mg Cap) 300 mg PO TID [facility] Stop: 05/26/21 08:59 Last Admin: 04/28/21 08:44 Dose: 300 mg Documented by: Hydrochlorothiazide (Hydrochlorothiazide 25 Mg Tab) 50 mg PO DAILY [facility] Stop: 05/26/21 08:59 Last Admin: 04/28/21 08:45 Dose: 50 mg Documented by: Hydroxyzine HCl (Hydroxyzine Hcl 25 Mg Tab) 25 mg PO Q6 PRN PRN Reason: Anxiety Stop: 05/26/21 01:31 Promethazine HCl 12.5 mg/ (Sodium Chloride) 50.5 mls @ 202 mls/hr IV Q6H PRN PRN Reason: Nausea And Vomiting Stop: 05/26/21 08:18 Last Infusion: 04/26/21 09:56 Dose: Infused Documented by: Labetalol HCl (Labetalol Hcl Iv 5 Mg/Ml 20ml) 10 mg IV Q4H PRN PRN Reason: Hypertension Stop: 05/26/21 01:31 Last Admin: 04/26/21 02:01 Dose: 10 mg Documented by: Levothyroxine Sodium ([facility]othyroxine Sodium 75 Mcg Tablet) [facility]: 05/26/21 06:29 Last Admin: 04/28/21 06:11 Dose: 75 mcg Documented by: Lisinopril (Lisinopril 40 Mg Tab) 40 mg PO DAILY [facility] Stop: 05/26/21 08:59 Last Admin: 04/28/21 08:43 Dose: 40 mg Documented by: Metronidazole (Metronidazole 500 Mg Tab) 500 mg PO TID [facility]; Protocol Stop: 05/06/21 13:59 Miscellaneous Information (Ciprofloxacin Consult Active) 1 ea N/A UD PRN PRN Reason: Consult Stop: 05/26/21 01:44 Morphine Sulfate (Morphine Sulfate 4 Mg/Ml 1 Ml Carp\Vial) 3 mg IV Q3H PRN PRN Reason: Pain Stop: 05/10/21 02:09 Last Admin: 04/28/21 00:13 Dose: 3 mg Documented by: Nitroglycerin (Nitroglycerin Sl 0.4 Mg/Tab Tab) 0.4 mg SL UD PRN PRN Reason: Chest Pain Stop: 05/26/21 01:31 Last Admin: 04/26/21 06:43 Dose: 0.4 mg Documented by: Tramadol HCl (Tramadol Hcl 50 Mg Tablet) 50 mg PO Q4H PRN PRN Reason: Pain, Severe Stop: 05/26/21 01:31 Last Admin: 04/28/21 09:03 Dose: 50 mg Documented by: (1) Chest pain Chest pain type: unspecified Qualified Code(s): R07.9 - Chest pain, unspecified (2) Hypertension Hypertension type: primary hypertension Qualified Code(s): I10 - Essential (primary) hypertension
[2021-04-28] MEDS ORDERED: metroNIDAZOLE 500 MG TAB PO SCH (14:00)
--- NOTE | 2021-04-28 17:35 | Discharge Summary ---
Date of Service April 28, 2021 Admission HPI Per Admitting Provider DICTATED BY: Manuel Jiménez MD DATE OF ADMISSION: 04/26/2021. CHIEF COMPLAINT: Left lower extremity leg pain and also chest pain and also left lower quadrant abdominal pain. HISTORY OF PRESENT ILLNESS: This is a 55-year-old female with past medical history significant for sick euthyroid syndrome, acquired hypothyroidism, intermittent asthma without complication, hypertension, obesity, uterine leiomyoma, degenerative disk disease, history of tension headache, migraines, moderate depression, history of tobacco use disorder, history of insomnia, history of noncompliance with medical treatment. Presents with ongoing leg pain since last 10 days on the left lower extremity. Went to PCP's office and also complained of left lower quadrant abdominal pain and was sent here and she was also tested for COVID a couple of days ago outpatient which came back negative. COVID was tested negative here in the hospital because the patient was worried that she might be exposed to COVID as she was recently at a [employer] for [employer] and several people tested positive following this. The patient says for 1 week she is having occasional cough and some fever on and off and chest pain and shortness of breath. In the ER, she was saturating fine on room air. When she came in, blood pressure was high in 220s and she was attributing it to her leg pain. No lymphopenia on the CBC. D-dimer was okay. Troponin is negative. Venous Doppler in the right lower extremity is negative. Lyme screen was negative. EKG was okay, but the blood pressure was not getting better, so we were called for admission. The patient denies any diarrhea or constipation. She denies any blood in the stools or black stools. Normal bladder movements. Denies any nausea, no headache, no blurred visions, no earache, no runny nose, no sore throat. Currently, resting comfortably and hemodynamically stable. Admission Exam Per Admitting Provider GENERAL: The patient is obese, not in acute distress. VITAL SIGNS: Temperature 36.8, pulse 79, respiratory rate 19, blood pressure 180/104, oxygen 95% on room air. HEENT: Pupils equal, round and reactive to light. Oral mucosa moist. NECK: No JVD, no neck masses. CARDIOVASCULAR: S1 and S2 heard, regular rate and rhythm. No murmur, no gallop. RESPIRATORY SYSTEM: Normal AP diameter. No accessory muscle use. No wheezing, no crackles. ABDOMEN: Soft, bowel sounds present. Left lower quadrant tenderness present. Mild guarding, no rigidity, no distention. CENTRAL NERVOUS SYSTEM: Cranial nerves II-XII grossly intact, nonfocal. EXTREMITIES: Bilateral lower extremity, no edema, no erythema seen. Pain in the left lower extremity on movements. Principal Diagnosis Acute sigmoid diverticulitis, uncontrolled hypertension, chest pain-no ACS Discharge Exam Constitutional well developed, well nourished, + ill appearing and + obese Eyes PERRL, conjunctivae normal, anicteric sclerae ENMT external ear and nose normal, oropharynx normal Respiratory normal respiratory effort, lungs clear to auscultation Cardiovascular Rate/Rhythm: regular rate and regular rhythm Heart Sounds: normal S1 and normal S2; no murmur Extremities: + edema (Trace edema bilaterally) Gastrointestinal (Abdomen) normal bowel sounds, soft, nontender, no hepatosplenomegaly Inspection/Auscultation: normal bowel sounds; abdomen not distended Percussion/Palpation: abdomen soft; abdomen nontender (Left lower quadrant), no guarding and abdomen not rigid Neurologic PERRL, EOMI, accommodation nl, no face palsy, no dysarthria Lymphatic no cervical or axillary lymphadenopathy Discharge Data Allergies Allergy/AdvReac Type Severity Reaction Status Date / Time Cephalosporins Allergy Severe Anaphylaxis Verified 04/25/21 20:56 erythromycin base Allergy Severe Anaphylaxis Verified 04/25/21 20:56 Penicillins Allergy Severe Anaphylaxis Verified 04/25/21 20:56 Sulfa (Sulfonamide Allergy Severe Anaphylaxis Verified 04/25/21 20:56 Antibiotics) Tetracyclines Allergy Severe Anaphylaxis Verified 04/25/21 20:56 Consultations 04/25/21 22:54 ED Decision to Admit Stat 04/26/21 08:00 Consult Cardiology Routine Ordered Studies 04/25/21 17:37 US venous doppler LE BI Stat 04/26/21 00:36 CT abd pelvis wo con Urgent Hospital Course (1) Acute diverticulitis: Has been complaining of abdominal pain with nausea and vomiting Denies any fever and chills CT of the abdomen did show acute diverticulitis involving descending colon Has been on intravenous ofloxacin and Flagyl This is her third or fourth attack of diverticulitis which is widely spaced Continues to have abdominal pain without any more nausea and or vomiting Her bowel has not moved Diet advanced as tolerated and if well will be discharged tomorrow Still has significant pain in the left lower quadrant but the patient wants to go home Has been tolerating regular diet and antibiotic has been changed to oral Be discharged home this afternoon (2) Chest pain: Atypical chest pain Appreciate cardiology input and recommendation Doubt any cardiac regional pain No more cardiac symptoms (3) Hypertension: Noted to have very high blood pressure at presentation Could be part of the problem with chest pain Blood pressure seems to be controlled right now Her blood pressure is well controlled (4) Asthma: No acute exacerbation (5) Depression: No acute symptoms Will start clear and advance diet as tolerated Discharge regular diet Has been ambulating without any difficulty We discharged home this afternoon and going back to work on Wednesday next Total Time Total Time Spent Total Time Spent (In Minutes): 35 minutes Discharge Plan Discharge Items Patient Disposition: Home - Self-Care Reason For Visit: LEG PAIN Discharge Diagnosis: Acute sigmoid diverticulitis, uncontrolled hypertension, chest pain-no ACS Condition on Discharge: Good Activity: As commented below Activity Comment: Can go back to work on Wednesday, 05 May 2021 Non-emergency contact: Primary Care Provider Call non-emergency contact if: you have any medication questions and your symptoms worsen Follow-up/Referrals: Joe Alba MD [Primary Care Provider] - (Date & Time 05/02/2021 12:00 PM Provider Joe Alba MD Department Family [facility] ) Diet: Regular and Low Fiber Addtl Attending Provider Instructions: Please finish the course of antibiotic Try to drink more fluid and low fiber diet Use laxatives as needed Pending Studies at Discharge: No Stand-Alone Forms: My [employer], Work/School Release, Smoking Cessation Medications and DC Order Prescriptions: New metronidazole 500 mg Tablet 500 mg PO TID 10 Days Qty: 30 RF: 0 ciprofloxacin HCl 500 mg Tablet 500 mg PO BID 10 Days Qty: 20 RF: 0 carvedilol 3.125 mg Tablet 3.125 mg PO BID 30 Days Qty: 60 RF: 0 Continued albuterol sulfate 90 mcg/actuation Hfa Aerosol Inhaler 2 puff INHALATION QID PRN (Reason: Wheezing) RF: 0 hydroxyzine HCl 25 mg Tablet 25 mg PO Q6 PRN (Reason: Anxiety) RF: 0 gabapentin 100 mg Capsule 300 mg PO TID RF: 0 levothyroxine 75 mcg Capsule 75 mcg PO DAILY RF: 0 cyclobenzaprine 10 mg Tablet 10 mg PO HS PRN (Reason: Muscle Pain) RF: 0 hydrochlorothiazide 50 mg Tablet 50 mg PO DAILY RF: 0 ondansetron HCl 4 mg Tablet 4 mg PO Q6H PRN (Reason: Nausea) RF: 0 amlodipine 10 mg Tablet 10 mg PO DAILY RF: 0 lisinopril 40 mg Tablet 40 mg PO DAILY RF: 0 duloxetine [Cymbalta] 30 mg Capsule,Delayed Release(Dr/Ec) 30 mg PO DAILY RF: 0 tramadol 50 mg Tablet 50 mg PO Q4H PRN (Reason: Pain, Severe) 5 Days Qty: 20 RF: 0 Discharge Orders: Discharge Order (Routine); Ordered 04/28/21 Ordered By: Kandice Cunningham Admission Data Admit Date/Time: 04/26/21 00:36 Attending Provider: Kandice Cunningham Admit Provider: Manuel Jiménez Primary Care Provider: Joe Alba Other Providers: Manuel Jiménez ; Ghanshyam Lennon ; Anderson Estes ; Gibson Steele ; Brooks Grajeda ; Ignacio Medrano ; Cesar Jain ; Tamanna Gordon ; Rocio Jackson ; Dania Ornelas ; Da Moura ; Joe Alba Other Interventions: Discharge Summary Assessment (RN) Last Done: 04/28/21 13:23
[2021-04-28] MEDS ORDERED: CIPROFLOXACIN 500 MG TAB PO SCH (21:00)
== END 2021-04-28 13:56 | disposition home or self-care (01) | DRG 392 ==
LOC: ED 15:23 → 2N 04-26 00:36 → SUATTDRO 04-26 00:36 → 2N 04-26 01:05

== ENCOUNTER 2021-10-20 14:01 | Inpatient (IN) ==
[2021-10-20 14:47] LABS: iSTAT Creatinine 0.8 mg/dl (0.6-1.3); iSTAT Hemoglobin 16.3 g/dl (12.0-16.0); iSTAT Ionized Calcium 1.15 mmol/l (1.12-1.32); iSTAT Potassium 3.8 mmol/L (3.3-5.0)
[2021-10-20] MEDS ORDERED: LABETALOL HCL IV 5 MG/ML 20ML IV STA ×2 (14:48→17:07)
--- NOTE | 2021-10-20 14:49 | Emergency Department Note ---
Impression & Plan Hypertensive emergency, Headache ED Provider Note NAME: OBED TIDWELL AGE: 56 SEX: F : 1965 ARRIVES VIA: Walk-In INFORMANT: Patient, ED PROVIDER(S): Justus Freire MD Chief Complaint: Headache, left-sided weakness HPI: Patient does present due to concern for dizziness and nausea. Left-sided numbness. Patient states this all began around 11 AM. Did mildly improve with the lights off. Did think that this would improve by morning but it had not improved by this morning. Patient's headache has been fairly constant change since it began. She states she feels as though her left upper extremity is a sleep and weak. Patient has had difficulty with ambulation and weakness of the left lower extremity as well. Patient denies any associated nausea. Patient patient may be having some incontinence and does have some chronic back pain but denies any saddle anesthesia or recent trauma or heavy lifting. Patient is not having any issues with bowel movements. Patient has not taken her lisinopril for blood pressure the last 2 days. Patient is not taking anything for her headache. Patient denies any falls or trauma ROS: See HPI for pertinent positives and negatives. A total of 10 systems were re viewed and otherwise negative. Past medical history: See below Surgical history: See below Social history: See below Physical Exam: GENERAL: Nontoxic in appearance, wearing a mask. EYE EXAM: Normal conjunctiva. PERRL, no anisocoria and EOM's grossly intact w/o pain. NECK: Supple, no nuchal rigidity, no adenopathy, non-tender. No signs of meningismus. LUNGS: Clear to auscultation. Normal chest wall mechanics. HEART: NSR, no MRG. ABDOMEN: Abdomen soft, non-tender, normo-active bowel sounds, no masses, no rebound or guarding. BACK: No CVA TTP. SKIN: No rashes and no bruising. UPPER EXTREMITIES: Upper extremities are grossly normal. LOWER EXTREMITIES: Grossly normal, no edema. NEURO EXAM: A&O x3, cranial nerves II-XII grossly intact, normal speech, 4-5 strength in left upper and left lower extremities compared with 5 out of 5 strength in right upper and right lower extremity [Good finger to nose, no drift, no sensory deficits.] Differential diagnoses: Infection, dehydration, metabolic abnormality, hypo/hyperglycemia, electrolyte disturbance, anemia, hypoxia, cardiac sources, intracerebral event, toxicologic, neurologic, as well as other pathologies. Course: Patient was seen and evaluated the bedside. Full history physical exam was performed. [EKG interpreted by me] Normal sinus rhythm, rate of 80, normal intervals, normal axis, no ST changes or T WI. Imaging Studies: See Below [Cardiac monitoring: An order was placed for continuous cardiac monitoring. The monitor shows a rate of 78 with sinus rhythm.] MDM: Patient was seen due to concern for headache and left sided weakness. Patient symptoms been ongoing since 11 AM yesterday. Patient not a tPA candidate. The patient was ordered medications for her blood pressure as well as headache. Patient did have blood work completed which showed normal white count with slightly elevated hemoglobin at 16.6 and normal platelet count. Kidney function is unremarkable. Patient's urinalysis does not show evidence of bladder infection. COVID-negative. Patient had also complained of some left posterior knee pain the patient does state that she is fairly sedentary for work. The patient did have a negative ultrasound completed several months ago but the patient's discomfort is been ongoing a month. Ultrasound negative CT head and neck negative. 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 I did speak to the on-call neurologist Dr. Posada recommended dual antiplatelet therapy and to gradually lower the blood pressure. I did discuss that the patient may have hypertensive emergency or even complicated migraine. She also did recommend MRI of the brain with and without contrast. I did speak the on-call hospitalist Dr. Cortez and the patient was admitted to the medicine service. The patient was ordered Vasotec IV and then IV labetalol as needed. Patient was ordered aspirin and Plavix along with the MRI brain with and without contrast by the resident physician. Critical Care: I have personally spent 45 minutes of critical care time in direct management of this patient. This includes bedside care, interpretation of diagnostic studies, and testing, discussion with consultants, patient, and family members, and other require inpatient management activities. This 45 minutes is in excess of all separately billable procedures. Past Med/Surg History Medical History Asthma Using albuterol inhaler multiple times per day in the winter, rare use in summer months Chronic back pain LUMBAR Degenerative disc disease Depression Diverticulitis Essential (primary) hypertension Hx of thyroid disease Hypothyroidism Surgical History History of History of endometrial ablation History of lumbar spinal fusion Hx laparoscopic cholecystectomy Hx of elbow surgery Hx of tonsillectomy Social History Smoking Status: Current every day smoker Tobacco Type: Cigarettes Cigarettes Per Day: 1/2 pack; Second Hand Exposure: No; Hx Alcohol Use: Yes Alcohol type: beer Hx Substance Use: Yes Last Used Substance: Days (ago) Substance Use Type Other :: CBD edibles Preferred Language: German Communication Ability: Effective Diabetes Physician Required: No Beliefs That Will Affect Care: None marital status: Current Living Situation: Spouse Feels Safe at Home: Yes Assistive Devices: None Immunizations: Not vaccinated for COVID-19 Allergies Allergies Allergy/AdvReac Type Severity Reaction Status Date / Time Cephalosporins Allergy Severe Anaphylaxis Verified 10/20/21 16:16 erythromycin base Allergy Severe Anaphylaxis Verified 10/20/21 16:16 Penicillins Allergy Severe Anaphylaxis Verified 10/20/21 16:16 Sulfa (Sulfonamide Allergy Severe Anaphylaxis Verified 10/20/21 16:16 Antibiotics) Tetracyclines Allergy Severe Anaphylaxis Verified 10/20/21 16:16 Home Meds Home Medications Medication Instructions Recorded Confirmed gabapentin 100 mg capsule 300 mg PO TID 08/31/18 10/20/21 lisinopril 40 mg tablet 40 mg PO DAILY 04/25/21 10/20/21 Results & Data (ED) Vital Signs Vital Signs - 24 hr 10/20/21 14:05 10/20/21 14:28 10/20/21 14:30 Temperature 36.8 C Temperature Source Temporal Artery Scan Pulse Rate 103 H 84 84 Pulse Rate [Apical] Pulse Rate from SpO2 Sensor 83 Respiratory Rate 18 14 15 Respiratory Effort / Characteristics Non-Labored Respiratory Depth Normal Respiratory Pattern Regular Blood Pressure Blood Pressure [Right Arm] Blood Pressure Mean Blood Pressure Mean [Right Arm] Blood Pressure Position Sitting Blood Pressure Position [Right Arm] Pulse Oximetry 99 97 Oxygen Delivery Method Room Air Sepsis Recent Fever Within 48 Hours No Sepsis New/Unexplained Change in Mental Status No Sepsis Action Taken by Nursing No Action Required 10/20/21 14:31 10/20/21 14:37 10/20/21 14:40 Temperature Temperature Source Pulse Rate 85 82 Pulse Rate [Apical] 82 Pulse Rate from SpO2 Sensor 86 81 Respiratory Rate 16 20 18 Respiratory Effort / Characteristics Respiratory Depth Respiratory Pattern Blood Pressure 230/124 H Blood Pressure [Right Arm] 230/124 H Blood Pressure Mean 159 Blood Pressure Mean [Right Arm] 159 Blood Pressure Position Blood Pressure Position [Right Arm] Lying Pulse Oximetry 97 97 97 Oxygen Delivery Method Room Air Sepsis Recent Fever Within 48 Hours Sepsis New/Unexplained Change in Mental Status Sepsis Action Taken by Nursing 10/20/21 14:50 10/20/21 15:00 10/20/21 15:01 Temperature Temperature Source Pulse Rate 89 83 89 Pulse Rate [Apical] Pulse Rate from SpO2 Sensor 88 83 87 Respiratory Rate 20 21 19 Respiratory Effort / Characteristics Respiratory Depth Respiratory Pattern Blood Pressure 233/149 H Blood Pressure [Right Arm] Blood Pressure Mean 177 Blood Pressure Mean [Right Arm] Blood Pressure Position Blood Pressure Position [Right Arm] Pulse Oximetry 96 96 96 Oxygen Delivery Method Sepsis Recent Fever Within 48 Hours Sepsis New/Unexplained Change in Mental Status Sepsis Action Taken by Nursing 10/20/21 15:10 10/20/21 15:16 10/20/21 15:20 Temperature Temperature Source Pulse Rate 82 81 82 Pulse Rate [Apical] Pulse Rate from SpO2 Sensor 82 81 82 Respiratory Rate 13 19 18 Respiratory Effort / Characteristics Respiratory Depth Respiratory Pattern Blood Pressure 204/118 H Blood Pressure [Right Arm] Blood Pressure Mean 146 Blood Pressure Mean [Right Arm] Blood Pressure Position Blood Pressure Position [Right Arm] Pulse Oximetry 96 94 97 Oxygen Delivery Method Sepsis Recent Fever Within 48 Hours Sepsis New/Unexplained Change in Mental Status Sepsis Action Taken by Nursing 10/20/21 15:30 10/20/21 15:40 10/20/21 15:50 Temperature Temperature Source Pulse Rate 82 85 76 Pulse Rate [Apical] Pulse Rate from SpO2 Sensor 82 77 Respiratory Rate 17 20 16 Respiratory Effort / Characteristics Respiratory Depth Respiratory Pattern Blood Pressure 212/137 H Blood Pressure [Right Arm] Blood Pressure Mean 162 Blood Pressure Mean [Right Arm] Blood Pressure Position Blood Pressure Position [Right Arm] Pulse Oximetry 97 96 Oxygen Delivery Method Sepsis Recent Fever Within 48 Hours Sepsis New/Unexplained Change in Mental Status Sepsis Action Taken by Nursing 10/20/21 16:00 10/20/21 16:10 10/20/21 16:20 Temperature Temperature Source Pulse Rate 80 82 78 Pulse Rate [Apical] Pulse Rate from SpO2 Sensor 83 79 78 Respiratory Rate 16 28 H 19 Respiratory Effort / Characteristics Respiratory Depth Respiratory Pattern Blood Pressure 201/152 H Blood Pressure [Right Arm] Blood Pressure Mean 168 Blood Pressure Mean [Right Arm] Blood Pressure Position Blood Pressure Position [Right Arm] Pulse Oximetry 97 96 97 Oxygen Delivery Method Sepsis Recent Fever Within 48 Hours Sepsis New/Unexplained Change in Mental Status Sepsis Action Taken by Nursing 10/20/21 16:30 10/20/21 17:03 10/20/21 17:04 Temperature Temperature Source Pulse Rate 86 98 H 78 Pulse Rate [Apical] Pulse Rate from SpO2 Sensor 85 80 78 Respiratory Rate 17 19 Respiratory Effort / Characteristics Respiratory Depth Respiratory Pattern Blood Pressure 209/136 H 229/123 H Blood Pressure [Right Arm] Blood Pressure Mean 160 158 Blood Pressure Mean [Right Arm] Blood Pressure Position Blood Pressure Position [Right Arm] Pulse Oximetry 97 97 98 Oxygen Delivery Method Sepsis Recent Fever Within 48 Hours Sepsis New/Unexplained Change in Mental Status Sepsis Action Taken by Nursing 10/20/21 17:10 10/20/21 18:03 10/20/21 18:18 Temperature Temperature Source Pulse Rate 77 76 80 Pulse Rate [Apical] Pulse Rate from SpO2 Sensor 77 77 81 Respiratory Rate 17 17 14 Respiratory Effort / Characteristics Respiratory Depth Respiratory Pattern Blood Pressure 235/122 H 203/148 H Blood Pressure [Right Arm] Blood Pressure Mean 159 166 Blood Pressure Mean [Right Arm] Blood Pressure Position Blood Pressure Position [Right Arm] Pulse Oximetry 97 98 100 Oxygen Delivery Method Sepsis Recent Fever Within 48 Hours Sepsis New/Unexplained Change in Mental Status Sepsis Action Taken by Nursing 10/20/21 18:30 10/20/21 18:31 10/20/21 18:50 Temperature Temperature Source Pulse Rate 87 77 79 Pulse Rate [Apical] Pulse Rate from SpO2 Sensor 86 76 78 Respiratory Rate 19 13 15 Respiratory Effort / Characteristics Respiratory Depth Respiratory Pattern Blood Pressure 211/154 H 163/97 H Blood Pressure [Right Arm] Blood Pressure Mean 173 119 Blood Pressure Mean [Right Arm] Blood Pressure Position Blood Pressure Position [Right Arm] Pulse Oximetry 98 99 98 Oxygen Delivery Method Sepsis Recent Fever Within 48 Hours Sepsis New/Unexplained Change in Mental Status Sepsis Action Taken by Nursing 10/20/21 19:00 Temperature Temperature Source Pulse Rate 77 Pulse Rate [Apical] Pulse Rate from SpO2 Sensor Respiratory Rate 21 Respiratory Effort / Characteristics Respiratory Depth Respiratory Pattern Blood Pressure 166/111 H Blood Pressure [Right Arm] Blood Pressure Mean 129 Blood Pressure Mean [Right Arm] Blood Pressure Position Blood Pressure Position [Right Arm] Pulse Oximetry Oxygen Delivery Method Sepsis Recent Fever Within 48 Hours Sepsis New/Unexplained Change in Mental Status Sepsis Action Taken by Alf Medications Current Medication List: was personally reviewed by me Laboratory Data Attestation: I reviewed the patient's lab results. Result diagrams: 10/20/21 14:27 10/20/21 14:27 Lab Results 10/20/21 10/20/21 10/20/21 Range/Units 14:27 14:27 14:27 WBC 6.82 (4.8-10.8) K/uL RBC 5.33 (4.2-5.4) M/uL Hgb 16.6 H (12.0-16.0) g/dL POC Hgb (12.0-16.0) g/dl Hct 48.7 H (37-47) % POC Hct (37-47) % MCV 91.4 (80-100) fL MCH 31.1 (25-34) pg MCHC 34.1 (32-36) g/dL RDW Std Deviation 43.8 (36.4-46.3) fL RDW Coeff of Kierra 13.1 (11.5-14.5) % Plt Count 252 (130-400) K/uL MPV 10.0 (7.4-10.4) fL Immature Gran % (Auto) 0.1 % Neut % (Auto) 61.5 % Lymph % (Auto) 27.6 % Long % (Auto) 4.8 % Eos % (Auto) 5.1 % Baso % (Auto) 0.9 % Neut # (Auto) 4.19 (1.4-6.5) K/uL Lymph # (Auto) 1.88 (1.2-3.4) K/uL Long # (Auto) 0.33 (0.11-0.59) K/uL Eos # (Auto) 0.35 (0-0.5) K/uL Baso # (Auto) 0.06 (0-0.2) K/uL Immature Gran # (Auto) 0.01 (0.00-0.02) K/uL PT 9.8 (9.0-12.0) Seconds INR 1.0 (0.9-1.1) APTT 27.6 (21.0-31.0) Seconds PTT Ratio 1.0 POC Sodium (135-144) mmol/L Sodium 139 (136-145) mmol/L POC Potassium (3.3-5.0) mmol/L Potassium 3.9 (3.5-5.1) mmol/L POC Chloride (101-112) mmol/L Chloride 104 (98-107) mmol/L Carbon Dioxide 25 (21-32) mmol/L POC Total CO2 (24-31) mmol/L Anion Gap 10 (3-11) POC Anion Gap (16-25) mmol/L POC BUN (7-18) mg/dl BUN 15 (6-23) mg/dl Creatinine 0.89 (0.6-1.2) mg/dl POC Creatinine (0.6-1.3) mg/dl Est Cr Clr Drug Dosing 77.1 ml/min Est GFR ( Amer) 84.0 ml/min Est GFR (Non-Af Amer) 72.5 ml/min BUN/Creatinine Ratio 16.9 (10-20) Glucose 97 (70-99(Fasting)) mg/dl POC Glucose (other) (70-99) mg/dl Calcium 9.7 (8.5-10.1) mg/dl POC Ioniz Calcium Tiny (1.12-1.32) mmol/l Magnesium 2.0 (1.7-2.4) mg/dl Total Bilirubin 0.3 (0.2-1.0) mg/dl AST 24 (13-39) U/L ALT 24 (7-52) U/L Alkaline Phosphatase 97 (34-104) U/L Troponin I < 0.03 (0-0.04) ng/ml Total Protein 8.2 (6.0-8.3) gm/dl Albumin 4.6 (3.4-5.0) gm/dl Globulin 3.6 (2.5-4.0) gm/dl Albumin/Globulin Ratio 1.3 (0.9-2) Urine Color Urine Appearance (Clear) Urine pH (4.5-7.5) Ur Specific [place] (1.000-1.030) Urine Protein (Negative) Urine Glucose (UA) (Negative) Urine Ketones (Negative) Urine Blood (Negative) Urine Nitrite (Negative) Urine Bilirubin (Negative) Urine Urobilinogen (Negative) Ur Leukocyte Esterase (Negative) SARS-CoV-2, RNA, NAAT (NEGATIVE) 10/20/21 10/20/21 10/20/21 Range/Units 14:27 14:32 Unknown WBC (4.8-10.8) K/uL RBC (4.2-5.4) M/uL Hgb (12.0-16.0) g/dL POC Hgb 16.3 H (12.0-16.0) g/dl Hct (37-47) % POC Hct 48 H (37-47) % MCV (80-100) fL MCH (25-34) pg MCHC (32-36) g/dL RDW Std Deviation (36.4-46.3) fL RDW Coeff of Kierra (11.5-14.5) % Plt Count (130-400) K/uL MPV (7.4-10.4) fL Immature Gran % (Auto) % Neut % (Auto) % Lymph % (Auto) % Long % (Auto) % Eos % (Auto) % Baso % (Auto) % Neut # (Auto) (1.4-6.5) K/uL Lymph # (Auto) (1.2-3.4) K/uL Long # (Auto) (0.11-0.59) K/uL Eos # (Auto) (0-0.5) K/uL Baso # (Auto) (0-0.2) K/uL Immature Gran # (Auto) (0.00-0.02) K/uL PT (9.0-12.0) Seconds INR (0.9-1.1) APTT (21.0-31.0) Seconds PTT Ratio POC Sodium 141 (135-144) mmol/L Sodium (136-145) mmol/L POC Potassium 3.8 (3.3-5.0) mmol/L Potassium (3.5-5.1) mmol/L POC Chloride 104 (101-112) mmol/L Chloride (98-107) mmol/L Carbon Dioxide (21-32) mmol/L POC Total CO2 26 (24-31) mmol/L Anion Gap (3-11) POC Anion Gap 16.0 (16-25) mmol/L POC BUN 16 (7-18) mg/dl BUN (6-23) mg/dl Creatinine (0.6-1.2) mg/dl POC Creatinine 0.8 (0.6-1.3) mg/dl Est Cr Clr Drug Dosing ml/min Est GFR ( Amer) ml/min Est GFR (Non-Af Amer) ml/min BUN/Creatinine Ratio (10-20) Glucose (70-99(Fasting)) mg/dl POC Glucose (other) 102 H (70-99) mg/dl Calcium (8.5-10.1) mg/dl POC Ioniz Calcium Tiny 1.15 (1.12-1.32) mmol/l Magnesium (1.7-2.4) mg/dl Total Bilirubin (0.2-1.0) mg/dl AST (13-39) U/L ALT (7-52) U/L Alkaline Phosphatase (34-104) U/L Troponin I (0-0.04) ng/ml Total Protein (6.0-8.3) gm/dl Albumin (3.4-5.0) gm/dl Globulin (2.5-4.0) gm/dl Albumin/Globulin Ratio (0.9-2) Urine Color Yellow Urine Appearance Clear (Clear) Urine pH 7.5 (4.5-7.5) Ur Specific [place] 1.013 (1.000-1.030) Urine Protein Negative (Negative) Urine Glucose (UA) Negative (Negative) Urine Ketones Negative (Negative) Urine Blood Negative (Negative) Urine Nitrite Negative (Negative) Urine Bilirubin Negative (Negative) Urine Urobilinogen Negative (Negative) Ur Leukocyte Esterase Negative (Negative) SARS-CoV-2, RNA, NAAT NEGATIVE (NEGATIVE) Administered Medications Discontinued Medications Acetaminophen (Acetaminophen 500 Mg Tab) 1,000 mg PO NOW STA Stop: 10/20/21 15:25 Last Admin: 10/20/21 15:42 Dose: 1,000 mg Documented by: [id number] Aspirin (Aspirin 81 Mg Ectab) 81 mg PO NOW STA Stop: 10/20/21 17:33 Last Admin: 10/20/21 18:04 Dose: 81 mg Documented by: [id number] Clopidogrel Bisulfate (Clopidogrel Bisulfate 75 Mg Tab) 75 mg PO NOW ONE Stop: 10/20/21 17:33 Last Admin: 10/20/21 18:05 Dose: 75 mg Documented by: [id number] Diphenhydramine HCl (Diphenhydramine 50 Mg/Ml Vial) 12.5 mg IV NOW STA Stop: 10/20/21 17:37 Last Admin: 10/20/21 18:05 Dose: 12.5 mg Documented by: [id number] Gadobutrol (Gadobutrol 65ml Vial) 9.5 ml IV ONCE ONE Stop: 10/20/21 21:16 Last Admin: 10/20/21 21:16 Dose: 9.5 ml Documented by: [id number] Sodium Chloride (Nss) 500 mls @ 999 mls/hr IV .Q31M SHONA Stop: 10/20/21 16:00 Last Infusion: 10/20/21 16:58 Dose: 0 mls/hr Documented by: [id number] Admin: 10/20/21 15:43 Dose: 999 mls/hr Documented by: [id number] Magnesium Sulfate/Dextrose (Magnesium Sulfate / D5w) 1 gm in 100 mls @ 100 mls/hr IV NOW ONE Stop: 10/20/21 16:23 Last Infusion: 10/20/21 16:58 Dose: 0 mls/hr Documented by: [id number] Admin: 10/20/21 15:43 Dose: 100 mls/hr Documented by: [id number] Enalaprilat 1.25 mg/ Dextrose 26 mls @ 100 mls/hr IV ONCE STA Stop: 10/20/21 17:21 Last Infusion: 10/20/21 20:24 Dose: 0 mls/hr Documented by: [id number] Admin: 10/20/21 18:20 Dose: 100 mls/hr Documented by: [id number] Prochlorperazine (Compazine) 2 mls @ 1 mls/min IV ONE ONE Stop: 10/20/21 17:37 Last Admin: 10/20/21 18:05 Dose: 1 mls/min Documented by: [id number] Ioversol (Optiray 320 125ml) 103 ml IV ONCE ONE Stop: 10/20/21 16:47 Last Admin: 10/20/21 16:46 Dose: 103 ml Documented by: [id number] Labetalol HCl (Labetalol Hcl Iv 5 Mg/Ml 20ml) 10 mg IV NOW STA Stop: 10/20/21 14:49 Last Admin: 10/20/21 15:11 Dose: 10 mg Documented by: [id number] Cosigned by: [id number] Labetalol HCl (Labetalol Hcl Iv 5 Mg/Ml 20ml) 10 mg IV NOW STA Stop: 10/20/21 17:08 Last Admin: 10/20/21 18:05 Dose: 10 mg Documented by: [id number] Cosigned by: [id number] Ondansetron HCl (Ondansetron Inj 2 Mg/Ml 2 Ml Vial) 4 mg IV NOW STA Stop: 10/20/21 15:25 Last Admin: 10/20/21 15:42 Dose: 4 mg Documented by: [id number] Imaging Data Radiologist's Impression: Head CT 10/20/21 14:46 CT OF THE HEAD WITHOUT CONTRAST CLINICAL HISTORY: Stroke Like Symptoms COMPARISON STUDY: No previous studies for comparison. TECHNIQUE: Helical axial images of the head were obtained without IV contrast. Automated exposure control was utilized for the study. A dose lowering technique was utilized adhering to the principles of ALARA. FINDINGS: No acute intracranial hemorrhage, midline shift or mass effect is present. White matter hypodensities favor small vessel disease. The ventricular system is unremarkable. The basal cisterns are patent. No extra-axial collections are present. There are no findings to suggest acute dural sinus thrombosis or acute territorial infarct. No significant calvarial abnormalities are present. There is mild ethmoid sinus mucosal thickening. IMPRESSION: No acute intracranial findings. ACT 112: Negative or not required by law. Electronically signed by: Carlos Vargas M.D. 10/20/2021 4:49 PM Head CTA 10/20/21 14:46 CTA ANGIOGRAPHY OF THE HEAD CLINICAL HISTORY: Stroke Like Symptoms COMPARISON STUDY: No previous studies for comparison. TECHNIQUE: Helical axial images of the head were obtained following uneventful intravenous administration of 103 cc of Optiray. Sagittal and coronal reconstructions were viewed as well as maximal intensity projections on an independent 3-D workstation. Automated exposure control was utilized for the study. A dose lowering technique was utilized adhering to the principles of ALARA. CT DOSE: 1095.21 mGy.cm FINDINGS: No acute intracranial hemorrhage, midline shift or mass effect is present. Ventricular system is unremarkable. Basal cisterns are patent. White matter hypodensities favor small vessel disease. There is mild ethmoid sinus mucosal thickening. There is slight asymmetric decreased caliber of the intracranial portion of the right internal carotid artery. There is mild plaque within the bilateral cavernous carotids. There is no significant stenosis. Right A1 segment is diminutive on a congenital basis. There is a probable tiny 2 mm aneurysm arising from the anterior communicating artery. The left vertebral artery is diminutive and ends in PICA. persistence of the right posterior cerebral artery is noted. No central vessel occlusion is identified. Intracranial vascular irregularity is likely due to atherosclerosis. IMPRESSION: 1. No central vessel occlusion. 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 2. Mild atherosclerotic plaque within the intracranial vessels. No significant stenoses. ACT 112: Negative or not required by law. Electronically signed by: Carlos Vargas M.D. 10/20/2021 5:07 PM Neck CTA 10/20/21 14:46 CT ANGIOGRAPHY OF THE NECK WITH CONTRAST CLINICAL HISTORY: Stroke Like Symptoms COMPARISON STUDY: No previous studies for comparison. Technique: CT angiography of the carotid and vertebral arteries was obtained using Optiray and 3D reconstruction on an independent workstation. NASCET criteria was utilized. Automated exposure control was utilized for the study. A dose lowering technique was utilized adhering to the principles of ALARA. Findings: Lung apices are unremarkable. There is no acute cervical spine fracture. No cervical lymphadenopathy is present. Multilevel degenerative changes within the cervical spine are incidentally noted. The right vertebral artery is dominant. The left vertebral artery is somewhat diminutive on a congenital basis. No stenosis is noted within the bilateral common carotid, cervical internal carotid or vertebral arteries. CTA of the head will be reported separately. No dissection is present within the neck. IMPRESSION: No stenosis or dissection within the bilateral common carotid, cervical internal carotid or vertebral arteries. ACT 112: Negative or not required by law. Electronically signed by: Carlos Vargas M.D. 10/20/2021 5:00 PM Venous Doppler Study 10/20/21 16:02 LEFT LOWER EXTREMITY VENOUS DOPPLER CLINICAL HISTORY: left leg swelling COMPARISON STUDY: Bilateral lower extremity venous Doppler ultrasound April 25, 2021. TECHNIQUE: Sonography of the deep venous system of the left lower extremity was performed. Compression and augmentation were evaluated. FINDINGS: The left common femoral, superficial femoral and popliteal veins were compressible. Augmentation was normal. Flow was shown within the deep calf vessels. IMPRESSION: No evidence of deep venous thrombus within the left lower extremity. ACT 112: Negative or not required by law. Electronically signed by: Carlos Vargas M.D. 10/20/2021 6:04 PM Discharge Plan Visit Data Chief Complaint: TIA Symptoms Stated Complaint: DIZZY, LEFT SIDE "HEAVY" AND NUMB, ED Provider: Justus Freire Discharge Problem: Hypertensive emergency, Headache
[2021-10-20 15:02] LABS: Basophils # (auto) 0.06 K/uL (0-0.2); Basophils % (auto) 0.9 %; Eosinophils # (auto) 0.35 K/uL (0-0.5); Eosinophils % (auto) 5.1 %; Hematocrit (blood only) 48.7 % (37-47); Hemoglobin 16.6 g/dL (12.0-16.0); Immature Granulocytes # (auto) 0.01 K/uL (0.00-0.02); Immature Granulocytes % (auto) 0.1 %; Lymphocytes # (auto) 1.88 K/uL (1.2-3.4); Lymphocytes % (auto) 27.6 %; Mean Corpuscular Hemoglobin 31.1 pg (25-34); Mean Corpuscular Hgb Conc 34.1 g/dL (32-36); Mean Corpuscular Volume 91.4 fL (80-100); Monocytes # (auto) 0.33 K/uL (0.11-0.59); Monocytes % (auto) 4.8 %; Neutrophils # (auto) 4.19 K/uL (1.4-6.5); Neutrophils % (auto) 61.5 %; Platelet Count 252 K/uL (130-400); RDW Coefficient of Variation 13.1 % (11.5-14.5); RDW Standard Deviation 43.8 fL (36.4-46.3); Red Blood Count 5.33 M/uL (4.2-5.4); White Blood Count 6.82 K/uL (4.8-10.8)
[2021-10-20 15:13] LABS: Partial Thromboplastin Time 27.6 Seconds (21.0-31.0); Prothrombin Time 9.8 Seconds (9.0-12.0)
[2021-10-20 15:22] LABS: Appearance Urine Clear (Clear); Bilirubin Urine Negative (Negative); Blood Urine Negative (Negative); Color Urine Yellow; Glucose Urine UA Negative (Negative); Ketones Urine Negative (Negative); Leukocyte Esterase Urine Negative (Negative); Nitrite Urine Negative (Negative); Protein Urine Negative (Negative); Specific Gravity Urine 1.013 (1.000-1.030); Urobilinogen Urine Negative (Negative); pH Urine 7.5 (4.5-7.5)
[2021-10-20] MEDS ORDERED: ONDANSETRON INJ 2 MG/ML 2 ML VIAL IV STA (15:24)
[2021-10-20] MEDS ORDERED: ACETAMINOPHEN 500 MG TAB PO STA (15:24)
[2021-10-20] MEDS ORDERED: MAGNESIUM SULFATE / D5W 1 GM/100 ML BAG IV ONE (15:24)
[2021-10-20] MEDS ORDERED: SODIUM CHLORIDE 0.9% 500 ML IV SCH (15:30)
[2021-10-20 15:33] LABS: Troponin I < 0.03 ng/ml (0-0.04)
[2021-10-20 15:39] LABS: Alanine Aminotransferase 24 U/L (7-52); Albumin Globulin Ratio 1.3 (0.9-2); Albumin Level 4.6 gm/dl (3.4-5.0); Alkaline Phosphatase 97 U/L (34-104); Anion Gap 10 (3-11); Aspartate Aminotransferase 24 U/L (13-39); BUN Creatinine Ratio 16.9 (10-20); Bilirubin,Total 0.3 mg/dl (0.2-1.0); Blood Urea Nitrogen 15 mg/dl (6-23); Calcium 9.7 mg/dl (8.5-10.1); Carbon Dioxide 25 mmol/L (21-32); Chloride 104 mmol/L (98-107); Creatinine Clr Calc Pharmacy 77.1 ml/min; Est GFR (Non-African American) 72.5 ml/min; Globulin 3.6 gm/dl (2.5-4.0); Glucose 97 mg/dl (70-99(Fasting)); Potassium 3.9 mmol/L (3.5-5.1); Sodium 139 mmol/L (136-145); Total Protein 8.2 gm/dl (6.0-8.3)
[2021-10-20] MEDS ORDERED: OPTIRAY 320 125ml IV ONE (16:46)
--- NOTE | 2021-10-20 16:48 | Electrocardiogram Report ---
Test Reason : Blood Pressure : / mmHG Vent. Rate : 080 BPM Atrial Rate : 080 BPM P-R Int : 140 ms QRS Dur : 080 ms QT Int : 390 ms P-R-T Axes : 056 006 036 degrees QTc Int : 449 ms Normal sinus rhythm Normal ECG When compared with ECG of 28-APR-2021 06:00, No significant change was found Confirmed by Aleksey Leigh ([id number]) on 10/20/2021 4:48:09 PM Referred By: Confirmed By:Aleksey Leigh
--- NOTE | 2021-10-20 16:52 | CT Scan Report ---
CT OF THE HEAD WITHOUT CONTRAST CLINICAL HISTORY: Stroke Like Symptoms COMPARISON STUDY: No previous studies for comparison. TECHNIQUE: Helical axial images of the head were obtained without IV contrast. Automated exposure con trol was utilized for the study. A dose lowering technique was utilized adhering to the principles o f ALARA. FINDINGS: No acute intracranial hemorrhage, midline shift or mass effect is present. White matter hyp odensities favor small vessel disease. The ventricular system is unremarkable. The basal cisterns are patent. No extra-axial collections are present. There are no findings to suggest acute dural sinus t hrombosis or acute territorial infarct. No significant calvarial abnormalities are present. There is mild ethmoid sinus mucosal thickening. IMPRESSION: No acute intracranial findings. ACT 112: Negative or not required by law. Electronically signed by: Carlos Vargas M.D. 10/20/2021 4:49 PM
--- NOTE | 2021-10-20 17:01 | CT Scan Report ---
CT ANGIOGRAPHY OF THE NECK WITH CONTRAST CLINICAL HISTORY: Stroke Like Symptoms COMPARISON STUDY: No previous studies for comparison. Technique: CT angiography of the carotid and vertebral arteries was obtained using Optiray and 3D rec onstruction on an independent workstation. NASCET criteria was utilized. Automated exposure control was utilized for the study. A dose lowering technique was utilized adhering to the principles of ALA RA. Findings: Lung apices are unremarkable. There is no acute cervical spine fracture. No cervical lympha denopathy is present. Multilevel degenerative changes within the cervical spine are incidentally note d. The right vertebral artery is dominant. The left vertebral artery is somewhat diminutive on a herb enital basis. No stenosis is noted within the bilateral common carotid, cervical internal carotid or vertebral arteries. CTA of the head will be reported separately. No dissection is present within the neck. IMPRESSION: No stenosis or dissection within the bilateral common carotid, cervical internal carotid or vertebral arteries. ACT 112: Negative or not required by law. Electronically signed by: Carlos Vargas M.D. 10/20/2021 5:00 PM
[2021-10-20] MEDS ORDERED: ENALAPRILAT 1.25 MG in DEXTROSE 5% 25 ML IV STA (17:06)
--- NOTE | 2021-10-20 17:08 | CT Scan Report ---
CTA ANGIOGRAPHY OF THE HEAD CLINICAL HISTORY: Stroke Like Symptoms COMPARISON STUDY: No previous studies for comparison. TECHNIQUE: Helical axial images of the head were obtained following uneventful intravenous administr ation of 103 cc of Optiray. Sagittal and coronal reconstructions were viewed as well as maximal inten sity projections on an independent 3-D workstation. Automated exposure control was utilized for the study. A dose lowering technique was utilized adhering to the principles of ALARA. CT DOSE: 1095.21 mGy.cm FINDINGS: No acute intracranial hemorrhage, midline shift or mass effect is present. Ventricular syst em is unremarkable. Basal cisterns are patent. White matter hypodensities favor small vessel disease. There is mild ethmoid sinus mucosal thickening. There is slight asymmetric decreased caliber of the intracranial portion of the right internal carotid artery. There is mild plaque within the bilateral cavernous carotids. There is no significant stenosis. Right A1 segment is diminutive on a congenital basis. There is a probable tiny 2 mm aneurysm arising from the anterior communicating artery. The lef t vertebral artery is diminutive and ends in PICA. persistence of the right posterior cerebral artery is noted. No central vessel occlusion is identified. Intracranial vascular irregularity is lik rich due to atherosclerosis. IMPRESSION: 1. No central vessel occlusion. 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 2. Mild atherosclerotic plaque within the intracranial vessels. No significant stenoses. ACT 112: Negative or not required by law. Electronically signed by: Carlos Vargas M.D. 10/20/2021 5:07 PM
[2021-10-20] MEDS ORDERED: ASPIRIN 81 MG ECTAB PO STA (17:32)
[2021-10-20] MEDS ORDERED: CLOPIDOGREL BISULFATE 75 MG TAB PO ONE (17:32)
[2021-10-20] MEDS ORDERED: PROCHLORPERAZINE 2 ML IV ONE (17:36)
[2021-10-20] MEDS ORDERED: LABETALOL HCL IV 5 MG/ML 20ML IV PRN (17:36)
[2021-10-20] MEDS ORDERED: diphenhydrAMINE 50 MG/ML VIAL IV STA (17:36)
--- NOTE | 2021-10-20 18:06 | Ultrasound Report ---
LEFT LOWER EXTREMITY VENOUS DOPPLER CLINICAL HISTORY: left leg swelling COMPARISON STUDY: Bilateral lower extremity venous Doppler ultrasound April 25, 2021. TECHNIQUE: Sonography of the deep venous system of the left lower extremity was performed. Compressi on and augmentation were evaluated. FINDINGS: The left common femoral, superficial femoral and popliteal veins were compressible. Augmen tation was normal. Flow was shown within the deep calf vessels. IMPRESSION: No evidence of deep venous thrombus within the left lower extremity. ACT 112: Negative or not required by law. Electronically signed by: Carlos Vargas M.D. 10/20/2021 6:04 PM
--- NOTE | 2021-10-20 18:25 | History & Physical Report ---
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 - MRI brain wo contrast ordered - Tele-neurology contacted by the ER- Recs aspirin and plavix - Will allow permissive hypertension with SBP 140-170 - Neurology consulted - PT/OT consults placed (2) Headache: Plan: - As above, hx of headache and migraines. Last migraine was on Wednesday last week and she took an imitrex tablet, reports normally using tylenol and ibuprofen for pain as imitrex is too expensive. - neurology consulted as above (3) Hypertension: Plan: - As above, permissive hypertension ok with SBP of 140-179, and DBP 90-109, give lebatolol prn for SBP > 180 or DBP > 110 - Takes lisinopril "occasionally" - will require counseling on medication consistency and compliance (4) Hypothyroidism: Plan: - Outpatient records indicate she is on levothyroxine - states she is not taking this (5) Tobacco use: Plan: - Cessation encouraged, nicotine patch ordered - Pt does not want to quit currently (6) Depression: Plan: - not on medication per her report DVT ppx: - teds, asa, plavix CODE: FULL Dispo: From home, remain in the hospital overnight History of Present Illness Chief Complaint: Headache and weakness Primary Care Provider: Joe Alba MD This is a 56-year-old female with PMHx of HTN, tobacco use, migraine, hypothyroidism, major depressive disorder, severe obesity with BMI of 39, history of acute diverticulitis who presents to the ER with acute worsening headache and left-sided weakness. Symptoms began yesterday around 11 in the morning. She reports that she noticed increased weakness with walking, and difficulty moving her left arm, terrible headache but not a migraine, and dizziness. She went to bed and stayed there until approximately 4 PM. At that point time she was able to get up and walk to her couch to watch football, but still had similar symptoms. She proceeded to watch football last evening and went to bed. This morning she awoke with same symptoms again and her brought her to the ER later this afternoon because nothing had improved. She smokes 1/2 to 1 pack/day of cigarettes since age 18. She drinks socially. Denies any other illicit drug use. Patient does not take any medication routinely other than lisinopril and gabapentin occasionally, because she does not like to take medication. Patient denies routinely exercising or dieting. Works from home and feels extremely stressed recently. Her is present with her at bedside. Allergies Allergy/AdvReac Type Severity Reaction Status Date / Time Cephalosporins Allergy Severe Anaphylaxis Verified 10/20/21 16:16 erythromycin base Allergy Severe Anaphylaxis Verified 10/20/21 16:16 Penicillins Allergy Severe Anaphylaxis Verified 10/20/21 16:16 Sulfa (Sulfonamide Allergy Severe Anaphylaxis Verified 10/20/21 16:16 Antibiotics) Tetracyclines Allergy Severe Anaphylaxis Verified 10/20/21 16:16 Home Medications Medication Instructions Recorded Confirmed Type gabapentin 100 mg capsule 300 mg PO TID 08/31/18 10/20/21 History lisinopril 40 mg tablet 40 mg PO DAILY 04/25/21 10/20/21 History Past Med/Surg History Medical History Asthma Using albuterol inhaler multiple times per day in the winter, rare use in summer months Chronic back pain LUMBAR Degenerative disc disease Depression Diverticulitis Essential (primary) hypertension Hx of thyroid disease Hypothyroidism Surgical History History of History of endometrial ablation History of lumbar spinal fusion Hx laparoscopic cholecystectomy Hx of elbow surgery Hx of tonsillectomy Social History Smoking Status: Current every day smoker Tobacco Type: Cigarettes Cigarettes Per Day: 1/2 pack; Second Hand Exposure: No; Hx Alcohol Use: Yes Alcohol type: beer Hx Substance Use: Yes Last Used Substance: Days (ago) Substance Use Type Other:: CBD edibles Preferred Language: Burkinan Communication Ability: Effective Music Intern Required: No Beliefs That Will Affect Care: None marital status: Current Living Situation: Spouse Feels Safe at Home: Yes Assistive Devices: None Review of Systems Review of Systems: Constitutional: No fever, sweats or chills Eyes: No diplopia, no worsening or blurred vision, + dizziness ENT: normal hearing, no trouble swallowing Respiratory: No cough, sputum, dyspnea at rest or on exertion Cardiovascular: No chest pain, tightness or palpitations Abdomen: No pain, nausea, vomiting, diarrhea or constipation Musculoskeletal: No joint pain, calf pain, swelling Neurologic: + Left arm and leg weakness, no numbness/tingling, + today had balance problems Psychiatric: No anxiety or depression Skin: No rash or itch Physical Exam Physical Exam: General: awake, alert, no apparent distress, + Obese BMI 39.4 Head: Normocephalic, atraumatic ENT: PERRL, EOMI, no pharyngeal exudate, mucous membranes moist Chest: Clear to auscultation, on room air, no adventitious breath sounds Cardiac: Regular rate and rhythm, no murmur, no JVD, normal peripheral pulses, good capillary refill Abdominal: NABS x 4 quadrants, soft, nondistended, nontender to palpation, no rebound or guarding Extremities: Normal inspection, no peripheral edema or erythema, calfs nontender to palpation Psych: Normal mood and affect Neuro: AAO x 3, + motor deficit in LUE 4/5 and LLE 3/5 compared to RUE and RLE rated 5/5, weakness in LUE made it difficult to perform pronator drift, some drifting with arm but unable to say if truly positive, slow cerebellar testing with turning hands back and forth on lap, unable to do heel to ortega testing with left heel down the right ortega, can perform with the opposite. Finger to nose testing intact. No nystagmus. Speech is clear, no peripheral sensory deficits Results & Data Results & Data ([facility]) Vital Signs (Past 12 Hours) Vital Signs Temp Pulse Pulse Resp BP BP Pulse Ox 10/20/21 17:10 77 17 97 10/20/21 17:04 78 19 229/123 H 98 10/20/21 17:03 98 H 97 10/20/21 16:30 86 17 209/136 H 97 10/20/21 16:20 78 19 97 10/20/21 16:10 82 28 H 96 10/20/21 16:00 80 16 201/152 H 97 10/20/21 15:50 76 16 96 10/20/21 15:40 85 20 97 10/20/21 15:30 82 17 212/137 H 10/20/21 15:20 82 18 97 10/20/21 15:16 81 19 204/118 H 94 10/20/21 15:10 82 13 96 10/20/21 15:01 89 19 233/149 H 96 10/20/21 15:00 83 21 96 10/20/21 14:50 89 20 96 10/20/21 14:40 82 18 97 10/20/21 14:37 82 20 230/124 H 97 10/20/21 14:31 85 16 230/124 H 97 10/20/21 14:30 84 15 10/20/21 14:28 84 14 97 10/20/21 14:05 36.8 C 103 H 18 99 Laboratory Results 10/20/21 10/20/21 10/20/21 Unknown 14:32 14:27 WBC RBC Hgb POC Hgb 16.3 H Hct POC Hct 48 H MCV MCH MCHC RDW Std Deviation RDW Coeff of Kierra Plt Count MPV Immature Gran % (Auto) Neut % (Auto) Lymph % (Auto) [place] % (Auto) Eos % (Auto) Baso % (Auto) Neut # (Auto) Lymph # (Auto) [place] # (Auto) Eos # (Auto) Baso # (Auto) Immature Gran # (Auto) PT INR APTT PTT Ratio POC Sodium 141 Sodium POC Potassium 3.8 Potassium POC Chloride 104 Chloride Carbon Dioxide POC Total CO2 26 Anion Gap POC Anion Gap 16.0 POC BUN 16 BUN Creatinine POC Creatinine 0.8 Est Cr Clr Drug Dosing Est GFR ( Amer) Est GFR (Non-Af Amer) BUN/Creatinine Ratio Glucose POC Glucose (other) 102 H Calcium POC Ioniz Calcium Tiny 1.15 Magnesium Total Bilirubin AST ALT Alkaline Phosphatase Troponin I Total Protein Albumin Globulin Albumin/Globulin Ratio Urine Color Yellow Urine Appearance Clear Urine pH 7.5 Ur Specific [place] 1.013 Urine Protein Negative Urine Glucose (UA) Negative Urine Ketones Negative Urine Blood Negative Urine Nitrite Negative Urine Bilirubin Negative Urine Urobilinogen Negative Ur Leukocyte Esterase Negative SARS-CoV-2, RNA, NAAT NEGATIVE 10/20/21 10/20/21 10/20/21 14:27 14:27 14:27 WBC 6.82 RBC 5.33 Hgb 16.6 H POC Hgb Hct 48.7 H POC Hct MCV 91.4 MCH 31.1 MCHC 34.1 RDW Std Deviation 43.8 RDW Coeff of Kierra 13.1 Plt Count 252 MPV 10.0 Immature Gran % (Auto) 0.1 Neut % (Auto) 61.5 Lymph % (Auto) 27.6 [place] % (Auto) 4.8 Eos % (Auto) 5.1 Baso % (Auto) 0.9 Neut # (Auto) 4.19 Lymph # (Auto) 1.88 [place] # (Auto) 0.33 Eos # (Auto) 0.35 Baso # (Auto) 0.06 Immature Gran # (Auto) 0.01 PT 9.8 INR 1.0 APTT 27.6 PTT Ratio 1.0 POC Sodium Sodium 139 POC Potassium Potassium 3.9 POC Chloride Chloride 104 Carbon Dioxide 25 POC Total CO2 Anion Gap 10 POC Anion Gap POC BUN BUN 15 Creatinine 0.89 POC Creatinine Est Cr Clr Drug Dosing 77.1 Est GFR ( Amer) 84.0 Est GFR (Non-Af Amer) 72.5 BUN/Creatinine Ratio 16.9 Glucose 97 POC Glucose (other) Calcium 9.7 POC Ioniz Calcium Tiny Magnesium 2.0 Total Bilirubin 0.3 AST 24 ALT 24 Alkaline Phosphatase 97 Troponin I < 0.03 Total Protein 8.2 Albumin 4.6 Globulin 3.6 Albumin/Globulin Ratio 1.3 Urine Color Urine Appearance Urine pH Ur Specific [place] Urine Protein Urine Glucose (UA) Urine Ketones Urine Blood Urine Nitrite Urine Bilirubin Urine Urobilinogen Ur Leukocyte Esterase SARS-CoV-2, RNA, NAAT Diagnostic Findings Head CT 10/20/21 14:46 CT OF THE HEAD WITHOUT CONTRAST CLINICAL HISTORY: Stroke Like Symptoms COMPARISON STUDY: No previous studies for comparison. TECHNIQUE: Helical axial images of the head were obtained without IV contrast. Automated exposure control was utilized for the study. A dose lowering technique was utilized adhering to the principles of ALARA. FINDINGS: No acute intracranial hemorrhage, midline shift or mass effect is present. White matter hypodensities favor small vessel disease. The ventricular system is unremarkable. The basal cisterns are patent. No extra-axial collections are present. There are no findings to suggest acute dural sinus thrombosis or acute territorial infarct. No significant calvarial abnormalities are present. There is mild ethmoid sinus mucosal thickening. IMPRESSION: No acute intracranial findings. ACT 112: Negative or not required by law. Electronically signed by: Carlos Vargas M.D. 10/20/2021 4:49 PM Head CTA 10/20/21 14:46 CTA ANGIOGRAPHY OF THE HEAD CLINICAL HISTORY: Stroke Like Symptoms COMPARISON STUDY: No previous studies for comparison. TECHNIQUE: Helical axial images of the head were obtained following uneventful intravenous administration of 103 cc of Optiray. Sagittal and coronal reconstructions were viewed as well as maximal intensity projections on an independent 3-D workstation. Automated exposure control was utilized for the study. A dose lowering technique was utilized adhering to the principles of ALARA. CT DOSE: 1095.21 mGy.cm FINDINGS: No acute intracranial hemorrhage, midline shift or mass effect is present. Ventricular system is unremarkable. Basal cisterns are patent. White matter hypodensities favor small vessel disease. There is mild ethmoid sinus mucosal thickening. There is slight asymmetric decreased caliber of the intracranial portion of the right internal carotid artery. There is mild plaque within the bilateral cavernous carotids. There is no significant stenosis. Right A1 segment is diminutive on a congenital basis. There is a probable tiny 2 mm aneurysm arising from the anterior communicating artery. The left vertebral artery is diminutive and ends in PICA. persistence of the right posterior cerebral artery is noted. No central vessel occlusion is identified. Intracranial vascular irregularity is likely due to atherosclerosis. IMPRESSION: 1. No central vessel occlusion. 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 2. Mild atherosclerotic plaque within the intracranial vessels. No significant stenoses. ACT 112: Negative or not required by law. Electronically signed by: Carlos Vargas M.D. 10/20/2021 5:07 PM Neck CTA 10/20/21 14:46 CT ANGIOGRAPHY OF THE NECK WITH CONTRAST CLINICAL HISTORY: Stroke Like Symptoms COMPARISON STUDY: No previous studies for comparison. Technique: CT angiography of the carotid and vertebral arteries was obtained using Optiray and 3D reconstruction on an independent workstation. NASCET criteria was utilized. Automated exposure control was utilized for the study. A dose lowering technique was utilized adhering to the principles of ALARA. Findings: Lung apices are unremarkable. There is no acute cervical spine fracture. No cervical lymphadenopathy is present. Multilevel degenerative changes within the cervical spine are incidentally noted. The right vertebral artery is dominant. The left vertebral artery is somewhat diminutive on a congenital basis. No stenosis is noted within the bilateral common carotid, cervical internal carotid or vertebral arteries. CTA of the head will be reported separately. No dissection is present within the neck. IMPRESSION: No stenosis or dissection within the bilateral common carotid, cervical internal carotid or vertebral arteries. ACT 112: Negative or not required by law. Electronically signed by: Carlos Vargas M.D. 10/20/2021 5:00 PM Venous Doppler Study 10/20/21 16:02 LEFT LOWER EXTREMITY VENOUS DOPPLER CLINICAL HISTORY: left leg swelling COMPARISON STUDY: Bilateral lower extremity venous Doppler ultrasound April 25, 2021. TECHNIQUE: Sonography of the deep venous system of the left lower extremity was performed. Compression and augmentation were evaluated. FINDINGS: The left common femoral, superficial femoral and popliteal veins were compressible. Augmentation was normal. Flow was shown within the deep calf vessels. IMPRESSION: No evidence of deep venous thrombus within the left lower extremity. ACT 112: Negative or not required by law. Electronically signed by: Carlos Vargas M.D. 10/20/2021 6:04 PM ECG Additional Comments: Vent. Rate : 080 BPM Atrial Rate : 080 BPM P-R Int : 140 ms QRS Dur : 080 ms QT Int : 390 ms P-R-T Axes : 056 006 036 degrees QTc Int : 449 ms Normal sinus rhythm Normal ECG When compared with ECG of 28-APR-2021 06:00, No significant change was found Confirmed by Aleksey Leigh ([id number]) on 10/20/2021 4:48:09 PM Code Status & VTE Plan Code Status Full code- discussed with the patient at bedside Supervising Physician Co-Signing Physician Notes 56-year-old female with PMHx of HTN occasionally on lisinopril, tobacco use (1 PPD since age 18), migraine, hypothyroidism, major depressive disorder, severe obesity with BMI of 39, history of acute diverticulitis and noncompliance to meds presented 10/20 to our ER with acute worsening headache and left-sided weakness. Pt reports weakness starting 11 AM 1 day [employer]IS[employer], decided to come today as it was not improving. r/o stroke, permissive HTN, maintain SBP 160-180 mmHg, prn meds for SBP >180 mmHg. Neuro consult. MRI brain wo con. aspirin and plavix per tele neurology. tele monitoring Upon exam GENERAL: Alert and oriented x3. NAD, on RA. HEENT: No pallor, no icterus. Pupils equal, round and reactive to light. Oral mucosa moist. NECK: No JVD, no neck masses. HEART: S1 and S2 heard. Regular rate and rhythm. No murmur, no gallop. RESPIRATORY SYSTEM: Normal AP diameter. No accessory muscle use. No wheezing, no crackles. ABDOMEN: Soft, bowel sounds present, nontender, no distention. CENTRAL NERVOUS SYSTEM: No facial droop. Speech is clear. Obeys simple commands. Moves extremities. EXTREMITIES: No edema, no erythema seen. LLE 3-4/5; RLE 5/5; LUE 4/5; RUE 5/5. I have seen and examined the patient and have discussed the case with the provider above. I agree with the assessment and plan as stated. (1) Hypertension Hypertension type: primary hypertension Qualified Code(s): I10 - Essential (primary) hypertension
[2021-10-20] MEDS ORDERED: GADOBUTROL 65ML VIAL IV ONE (21:15)
[2021-10-20] MEDS ORDERED: PHARMACIST DISCHARGE MED REC CONSULT PRN (21:30)
[2021-10-20] MEDS ORDERED: METOPROLOL TARTRATE 1 MG/ML VIAL IV PRN (21:30)
--- NOTE | 2021-10-20 22:07 | Communication Note ---
Date of Service: October 20, 2021 Made aware of Brain MRI stat read. Acute infarct right superior roseline on initial read. Change to full admit for CVA. Will relay to AM provider.
[2021-10-20] MEDS: ATORVASTATIN 40 MG TAB PO SCH (23:56)
[2021-10-21] MEDS ORDERED: ACETAMINOPHEN 325 MG TAB PO PRN (04:35)
[2021-10-21] MEDS ORDERED: MoRPHine SULFATE 4 MG/ML 1 ML CARP\\VIAL IV PRN (04:35)
[2021-10-21] MEDS ORDERED: PROMETHAZINE HCL 12.5 MG in SODIUM CHLORIDE 0.9% 50 ML IV PRN (04:35)
[2021-10-21] MEDS ORDERED: oxyCODONE HCL IR 5 MG TAB (IMMEDIATE RELEASE) PO PRN ×2 (04:35→10:04)
[2021-10-21 05:58] LABS: Basophils # (auto) 0.08 K/uL (0-0.2); Basophils % (auto) 1.3 %; Eosinophils # (auto) 0.38 K/uL (0-0.5); Eosinophils % (auto) 6.1 %; Hematocrit (blood only) 42.1 % (37-47); Hemoglobin 13.9 g/dL (12.0-16.0); Immature Granulocytes # (auto) 0.02 K/uL (0.00-0.02); Immature Granulocytes % (auto) 0.3 %; Lymphocytes % (auto) 37.2 %; Mean Corpuscular Hemoglobin 30.7 pg (25-34); Mean Corpuscular Volume 92.9 fL (80-100); Mean Platelet Volume 9.9 fL (7.4-10.4); Monocytes # (auto) 0.42 K/uL (0.11-0.59); Monocytes % (auto) 6.8 %; Neutrophils # (auto) 2.98 K/uL (1.4-6.5); Neutrophils % (auto) 48.3 %; Platelet Count 218 K/uL (130-400); RDW Coefficient of Variation 13.4 % (11.5-14.5); RDW Standard Deviation 45.5 fL (36.4-46.3); Red Blood Count 4.53 M/uL (4.2-5.4); White Blood Count 6.18 K/uL (4.8-10.8)
[2021-10-21 06:28] LABS: BUN Creatinine Ratio 17.2 (10-20); Calcium 8.9 mg/dl (8.5-10.1); Chol HDL Ratio 4.1; Creatinine Clr Calc Pharmacy 69.3 ml/min; Est GFR (African American) 73.8 ml/min; Est GFR (Non-African American) 63.7 ml/min
[2021-10-21 07:16] LABS: Estimated Average Glucose 103 mg/dl; Hemoglobin A1C 5.2 % (4.5-5.6)
--- NOTE | 2021-10-21 07:58 | Magnetic Resonance Report ---
MR brain wo/w con CLINICAL HISTORY: left sided weakness TECHNIQUE: Multiplanar and multisequence MR images of the brain were obtained prior to and following administration of gadolinium contrast. Comparison: None available at the time of this dictation. FINDINGS: There is an acute infarct in the right superior roseline. Foci of T2 and FLAIR hyperintensity are noted i n the paraventricular areas consistent with chronic small vessel ischemic disease. Ex vacuo ventricul omegaly and sulcal enlargement is noted compatible with diffuse encephalomalacia. There is no evidenc e of acute intraparenchymal hemorrhage. No extra axial fluid collections are seen. There are no earnest s, mass effect, or midline shift. No abnormal enhancement is seen. The corpus callosum, pituitary gl and, and cerebellar tonsils appear grossly unremarkable. Flow voids of the major intracranial arterial vessels are identified. There is mucosal thickening of a few ethmoid air cells. IMPRESSION: Acute infarct in the right superior roseline. ACT 112: Negative or not required by law. Electronically signed by: Dain Obrien M.D. 10/21/2021 7:57 AM
[2021-10-21] MEDS: ATORVASTATIN 40 MG TAB PO SCH (08:05)
[2021-10-21] MEDS: ASPIRIN 81 MG ECTAB PO SCH (08:05)
[2021-10-21] MEDS: CLOPIDOGREL BISULFATE 75 MG TAB PO SCH (08:05)
--- NOTE | 2021-10-21 12:13 | Hospitalist Progress Note ---
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 - MRI brain wo contrast --> Acute infarct in the right superior buffy. Pt made aware. - Tele-neurology contacted by the ER- Recs aspirin and plavix - Will allow permissive hypertension with SBP 140-170, will likely resume her home lisinopril bon - Neurology consulted, appreciate recs. - Optimize lipid control, statin started. - Pt counselled about improtance of antihypertensives, antiplatelets and anti lipids going forward and advised not to stop meds by own, instead talk with PCP if has any question. - PT/OT consults placed (2) Headache: Plan: - As above, hx of headache and migraines. Last migraine was on Wednesday last week and she took an imitrex tablet, reports normally using tylenol and ibuprofen for pain as imitrex is too expensive. - neurology consulted as above (3) Hypertension: Plan: - As above, permissive hypertension - Takes lisinopril "occasionally" - - Counselled on medication consistency and compliance (4) Hypothyroidism: Plan: - Outpatient records indicate she is on levothyroxine - states she is not taking this (5) Tobacco use: Plan: - Cessation encouraged, nicotine patch ordered - Pt does not want to quit currently (6) Depression: Plan: - not on medication per her report DVT ppx: - teds, asa, plavix CODE: FULL Dispo: From home, remain in the hospital overnight Admission and Anticipated Discharge Date Admission Date: October 20, 2021 Subjective Patient lying in bed, NAD, room air, no new acute events overnight. Patient had brain MRI and stroke seen in her Buffy, patient made aware. Patient counseled about the importance of antiplatelet medications she is on, blood pressure medications going forward, and made aware that she will be evaluated by neurology today. Patient reports her chronic headache and neuropathic pain. Patient denies any fever/chills/chest pain/palpitations/other review of symptoms. Physical Exam Physical Exam: GENERAL: Alert and oriented x3. NAD, on RA. HEENT: No pallor, no icterus. Pupils equal, round and reactive to light. Oral mucosa moist. NECK: No JVD, no neck masses. HEART: S1 and S2 heard. Regular rate and rhythm. No murmur, no gallop. RESPIRATORY SYSTEM: Normal AP diameter. No accessory muscle use. No wheezing, no crackles. ABDOMEN: Soft, bowel sounds present, nontender, no distention. CENTRAL NERVOUS SYSTEM: No facial droop. Speech is clear. Obeys simple commands. Moves extremities. EXTREMITIES: No edema, no erythema seen. LLE 4-5/5; RLE 5/5; LUE 4-5/5; RUE 5/5. Results & Data Results & Data ([facility]) Vital Signs (Past 12 Hours) Vital Signs Temp Pulse Pulse Resp BP Pulse Ox 10/21/21 07:53 37.3 C 75 18 167/97 H 95 10/21/21 07:00 70 10/21/21 03:40 36.7 C 62 16 176/98 H 94 (1) Headache Headache chronicity pattern: acute headache Headache type: unspecified Intractability: intractable Qualified Code(s): R51.9 - Headache, unspecified (2) Hypertension Hypertension type: primary hypertension Qualified Code(s): I10 - Essential (primary) hypertension
--- NOTE | 2021-10-21 12:14 | Neurology Consultation ---
Date of Consultation October 21, 2021 Assessment & Plan (1) CVA (cerebral vascular accident): 1. MRI brain- acute infarct right superior roseline 2. CTA head/neck no significant stenosis 3. add aspirin 81 mg and plavix 75 mg daily x 21 days then aspirin 81 mg for life 4. optimize HTN, HLD, DM LDL <70 5. PT/OT for discharge needs 6. smoking cessation strongly urged 7. healthy diet and exercise- weight loss 8. TTE- should be repeated 9. needs blood pressure control prior to discharge follow up with neurology 4-6 weeks after (2) Hypertensive urgency: 1. blood pressure needs controlled (3) Headache: 1. tylenol 2. could try riboflavin 400 mg and mg ox 400 mg daily (4) Tobacco use: 1. strongly urged cessations Supervising Physician Co-Signing Physician Notes I have seen and discussed above patient with Dr Rocio Espinoza, neurology. Patient seen and examined images reviewed this patient has known hypertension and has been noncompliant with medications. No prior history of coronary artery disease stroke or transient ischemic attacks. Patient reports a sudden onset of left-sided weakness without any cranial nerve symptoms 2 days prior to admission. Patient has had a nonthrobbing headache which is not posturally related for several weeks although it is not unusual for her She has not otherwise been ill having any head or neck injury or chiropractic manipulation chest pain palpitations or shortness of breath The patient's mother has a history of myocardial infarction there is no personal or family history of DVT early stroke. Patient is not on any hormone replacement and did not take antiplatelet therapy MRI of the brain shows a small right pontine infarction. Echo has not yet been reordered. Patient has been markedly hypertensive for much of the day yesterday Patient is awake and alert speech and language are normal affect appropriate. I do not appreciate any carotid bruits pupils are equal round reactive to light normal extraocular motility without nystagmus normal visual coronado facial sensation and symmetry no dysarthria is noted. Motor left upper extremity distally is 4-4+ proximally is 3+ left lower extremity is mildly proximately weak. There is a left drift but fairly symmetric rapid alternating movements. There is normal [id number] and he el-to-ortega there is mild left dysdiadochokinesia. There is intact light touch and temperature bilaterally reflexes are brisk in the lowers toes are downgoing her gait and tandem were unremarkable Impression right pontine infarction likely branch vessel occlusion. Recommend gradual resumption of normotension. Statin therapy with goal LDL of 70 or less. Smoking cessation. Dual antiplatelet therapy for 3 weeks and then aspirin monotherapy. Possible 2 mm right a comm aneurysm asymptomatic. At this tiny size if real it is unlikely to rupture Recommend elective vascular neurosurgical evaluation as an outpatient. Would not discharged today keep the patient overnight for additional monitoring and monitoring of blood pressure. Rocio Espinoza History of Present Illness Reason for Consultation: left sided weakness/ headache Requesting Physician: Devora Cortez MD Attending Physician: Devora Cortez MD History of Present Illness Tamera is a 56 year old female with PMH - HTN, tobacco use, migraine, hypothyroidism, major depressive disorder, severe obesity with BMI of 39, diverticulitis who presents to [facility] 10/20/2021 with acute worsening headache and left-sided weakness. She noticed increased weakness with walking, and difficulty moving her left arm, terrible headache but not a migraine, and dizziness. She went to bed and stayed there until approximately 4 PM. She was then able to get up and walk to her couch to watch football, but still had similar symptoms. In the morning she awoke with same symptoms again and her brought her to the ER because nothing had improved. She smokes 1/2 to 1 pack/day of cigarettes since age 18. She drinks socially no other drugs. She does not take any medication routinely other than lisinopril and gabapentin occasionally, because she does not like to take medication.Works from home and feels extremely stressed recently. She was admitted 04/26/2021 for CP and cardiology recommended medications for blood pressure control but she is not taking them. A TTE was done at that time. She wants to go home. she is aware she had a stroke. advised plan and reviewed stroke modifiers to work on she and her voice understanding. denies CP, SOB, abdominal pain, vision changes, swallowing issues. Allergies Allergy/AdvReac Type Severity Reaction Status Date / Time Cephalosporins Allergy Severe Anaphylaxis Verified 10/20/21 16:16 erythromycin base Allergy Severe Anaphylaxis Verified 10/20/21 16:16 Penicillins Allergy Severe Anaphylaxis Verified 10/20/21 16:16 Sulfa (Sulfonamide Allergy Severe Anaphylaxis Verified 10/20/21 16:16 Antibiotics) Tetracyclines Allergy Severe Anaphylaxis Verified 10/20/21 16:16 Home Medications Medication Instructions Recorded Confirmed Type gabapentin 100 mg capsule 300 mg PO TID 08/31/18 10/20/21 History lisinopril 40 mg tablet 40 mg PO DAILY 04/25/21 10/20/21 History Patient History Medical History Asthma Using albuterol inhaler multiple times per day in the winter, rare use in summer months Chronic back pain LUMBAR Degenerative disc disease Depression Diverticulitis Essential (primary) hypertension Hx of thyroid disease Hypothyroidism Surgical History History of History of endometrial ablation History of lumbar spinal fusion Hx laparoscopic cholecystectomy Hx of elbow surgery Hx of tonsillectomy Social History Smoking Status: Current every day smoker Tobacco Type: Cigarettes Cigarettes Per Day: 1/2 pack; Second Hand Exposure: No; Hx Alcohol Use: Yes Alcohol type: beer Hx Substance Use: Yes Last Used Substance: Days (ago) Substance Use Type Other:: cbd edibles Preferred Language: Telugu Communication Ability: 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 Beliefs That Will Affect Care: None marital status: Current Living Situation: Spouse Other Information That Helps Us Care for You: No Feels Safe at Home: No Is there a partner from a previous relationship who is making you feel unsafe now?: No Safety Concerns: Feels Safe At This Time Assistive Devices: None Review of Systems Review of Systems: All systems reviewed & are unremarkable except as noted in HPI & below Physical Exam Physical Exam: Physical Exam: Constitutional: appearance over nourished, healthy and normal Ears, Nose, Mouth and Throat: mucous membranes moist, no injection and skin normal, eyes normal Cardiovascular: normal S-1 and S-2 and regular rate and rhythm Respiratory: clear to auscultation (CTA) and mild inspiratory wheezing Musculoskeletal: no peripheral edema Skin: no stigmata of neurocutaneous disease noted and normal and intact Eyes: extraocular muscles intact (EOMI) and pupils equal, round and reactive to light (PERRL) NEUROLOGIC EXAMINATION: Mental status: Alert and interactive Oriented to full date and location Oriented to person Speech fluent with no evidence of aphasia Cranial Nerves smile eye brow raise symmetric Reflexes: Deep tendon reflexes were symmetrical and graded 2/5. down going toes Sensory: intact to light and cool touch Coordination: finger to nose, romberg absent Gait/Stance: Posture normal. Gait normal: with steady with steps, base, turning, and tandem gait. difficulty walking heel to toe Motor: Negative for pronator drift of out stretched arms with eyes closed. Strength: hand manager farm L 4+/5, R 5/5, biceps triceps L 4+/5, right 5/5, hip flex 5/5 bilaterally Results & Data ([facility]) Vital Signs (Past 12 Hours) Vital Signs Temp Pulse Pulse Resp BP Pulse Ox 10/21/21 12:10 36.6 C 79 18 179/121 H 97 10/21/21 07:53 37.3 C 75 18 167/97 H 95 10/21/21 07:00 70 10/21/21 03:40 36.7 C 62 16 176/98 H 94 Laboratory Results Abnormal lab results 10/20/21 10/20/21 10/21/21 Range/Units 14:27 14:32 05:31 Hgb 16.6 H (12.0-16.0) g/dL POC Hgb 16.3 H (12.0-16.0) g/dl Hct 48.7 H (37-47) % POC Hct 48 H (37-47) % Chloride 108 H (98-107) mmol/L POC Glucose (other) 102 H (70-99) mg/dl Triglycerides 183 H (0-150) mg/dl Diagnostic Findings CT head- No acute intracranial hemorrhage, midline shift or mass effect is present. White matter hypodensities favor small vessel disease. The ventricular system is unremarkable. The basal cisterns are patent. No extra-axial collections are present. There are no findings to suggest acute dural sinus thrombosis or acute territorial infarct. No significant calvarial abnormalities are present. There is mild ethmoid sinus mucosal thickening. CTA head-No central vessel occlusion. 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 Mild atherosclerotic plaque within the intracranial vessels. No significant stenoses. CTA neck-No stenosis or dissection within the bilateral common carotid, cervical internal carotid or vertebral arteries. venous doppler L LE-No evidence of deep venous thrombus within the left lower extremity. MRI brain-Acute infarct in the right superior roseline. TTE- 04/26/2021- 60-65% EF diastolic dysfunction NO ASD (1) Headache Headache chronicity pattern: acute headache Headache type: unspecified Intractability: intractable Qualified Code(s): R51.9 - Headache, unspecified
[2021-10-21] MEDS: NICOTINE 21 MG/24 HR TDSY TD SCH (12:27)
[2021-10-21] MEDS: GABAPENTIN 300 MG CAP PO SCH ×2 (14:45→19:56)
[2021-10-21] MEDS ORDERED: LABETALOL HCL IV 5 MG/ML 20ML IV PRN (16:23)
[2021-10-21] MEDS ORDERED: LABETALOL HCL IV 5 MG/ML 20ML IV STA (16:23)
[2021-10-22 06:40] LABS: Basophils # (auto) 0.06 K/uL (0-0.2); Eosinophils # (auto) 0.37 K/uL (0-0.5); Eosinophils % (auto) 6.2 %; Hemoglobin 14.6 g/dL (12.0-16.0); Immature Granulocytes # (auto) 0.01 K/uL (0.00-0.02); Immature Granulocytes % (auto) 0.2 %; Lymphocytes # (auto) 2.03 K/uL (1.2-3.4); Lymphocytes % (auto) 34.1 %; Mean Corpuscular Hemoglobin 30.7 pg (25-34); Mean Corpuscular Hgb Conc 33.2 g/dL (32-36); Mean Corpuscular Volume 92.4 fL (80-100); Monocytes # (auto) 0.38 K/uL (0.11-0.59); Monocytes % (auto) 6.4 %; Neutrophils % (auto) 52.1 %; Platelet Count 220 K/uL (130-400); RDW Coefficient of Variation 13.2 % (11.5-14.5); Red Blood Count 4.76 M/uL (4.2-5.4); White Blood Count 5.95 K/uL (4.8-10.8)
[2021-10-22 07:00] LABS: BUN Creatinine Ratio 18.5 (10-20); Calcium 9.2 mg/dl (8.5-10.1); Creatinine Clr Calc Pharmacy 72.2 ml/min; Est GFR (African American) 80.7 ml/min; Est GFR (Non-African American) 69.6 ml/min; Potassium 4.1 mmol/L (3.5-5.1)
[2021-10-22] MEDS: NICOTINE 21 MG/24 HR TDSY TD SCH (08:14)
[2021-10-22] MEDS: ASPIRIN 81 MG ECTAB PO SCH (08:15)
[2021-10-22] MEDS: GABAPENTIN 300 MG CAP PO SCH ×3 (08:15→19:49)
[2021-10-22] MEDS: CLOPIDOGREL BISULFATE 75 MG TAB PO SCH (08:15)
[2021-10-22] MEDS: ATORVASTATIN 40 MG TAB PO SCH (08:15)
[2021-10-22] MEDS ORDERED: lisinopril 20 MG TAB PO SCH (09:00)
[2021-10-22] MEDS: lisinopril 40 MG TAB PO SCH (10:35)
--- NOTE | 2021-10-22 10:40 | Hospitalist Progress Note ---
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 MRI brain wo contrast --> Acute infarct in the right superior roseline. Pt made aware. Neurologist recommendations noted Patient acknowledges poor medication adherence. She can only remember gabapentin and lisinopril. However, based on PCP records from 04/2021 and previous hospital records patient was also on HCTZ and carvedilol with better BP control at the time Patient counselled extensively on need for medication adherence With patient's BP trend, monotherapy will not be enough to control with systolics going up to 230s on admission and diastolic in 120s Resume lisinopril, HCTZ and carvedilol and monitor BP Continue statin started during this hospital stay Need DAPT for 3 weeks , then ASA 81mg only afterwards Counselled patient extensively on smoking cessation. She is not interested in quitting at this time (3) Headache: (4) Hypertension: (5) Hypothyroidism: Plan: -Outpatient records indicate she is on levothyroxine - states she is not taking this (6) Tobacco use: Plan: Cessation encouraged, nicotine patch ordered Pt does not want to quit currently (7) Depression: Plan: Not on medication per her report Admission and Anticipated Discharge Date Admission Date: October 20, 2021 Subjective Patient seen and examined. Reports left lower extremity weakness. Denies dizziness Reports mild headache Denies cough, shortness of breath, chest pain Denies nausea, vomiting, abdominal pain, diarrhea Denies dysuria, frequency, urgency Physical Exam Constitutional: + well hydrated and + obese; no acute distress Eyes: PERRL, conjunctivae normal, anicteric sclerae ENMT: external ear and nose normal, oropharynx normal Respiratory: normal respiratory effort, lungs clear to auscultation Cardiovascular: Rate/Rhythm: regular rate and regular rhythm S1 S2 Gastrointestinal (Abdomen): normal bowel sounds, soft, nontender, no hepatosplenomegaly Neurologic: PERRL, EOMI, accommodation nl, no face palsy, no dysarthria Power in 4/5 in LLE, 4+ LUE Psychiatric: A+Ox3, euthymic affect Results & Data Results & Data ([facility]) Vital Signs (Past 12 Hours) Vital Signs Temp Pulse Pulse Resp BP Pulse Ox 10/22/21 08:05 37.1 C 80 17 177/110 H 95 10/22/21 04:09 37.0 C 79 17 148/85 H 97 10/21/21 23:26 36.7 C 84 18 206/118 H 95 10/21/21 22:57 90 (1) Headache Headache chronicity pattern: acute headache Headache type: unspecified Intractability: intractable Qualified Code(s): R51.9 - Headache, unspecified (2) Hypertension Hypertension type: primary hypertension Qualified Code(s): I10 - Essential (primary) hypertension
[2021-10-22] MEDS ORDERED: hydroCHLOROthiazide 25 MG TAB PO STA (15:13)
--- NOTE | 2021-10-22 15:35 | Neurology Progress Note ---
Date of Service October 22, 2021 Assessment & Plan (1) CVA (cerebral vascular accident): Plan: 1. MRI brain- acute infarct right superior roseline 2. CTA head/neck no significant stenosis 3. add aspirin 81 mg and plavix 75 mg daily x 21 days then aspirin 81 mg for life 4. optimize HTN, HLD, DM LDL <70 5. PT/OT for discharge needs 6. smoking cessation strongly urged 7. healthy diet and exercise- weight loss 8. TTE- no ASD 9. needs blood pressure control prior to discharge 10. ZIO as outpatient follow up with neurology 4-6 weeks after (2) Hypertensive urgency: Plan: 1. blood pressure needs controlled (3) Headache: Plan: 1. tylenol 2. could try riboflavin 400 mg and mg ox 400 mg daily (4) Tobacco use: Plan: 1. strongly urged cessation Admission and Anticipated Discharge Date Admission Date: October 20, 2021 Supervising Physician Co-Signing Physician Notes I have seen and discussed above patient with Dr Rocio Espinoza, neurology patient seen and examined feeling much improved no new neurologic symptoms. Patient remains hypertensive. Her echo does not show any PFO or shunt. There is mild left ventricular hypertrophy. On exam the patient is awake and alert her speech and language are normal and affect appropriate is normal extraocular motility facial symmetry. There is normal weakness in the left upper extremity however there is no drift and there is equal rapid alternating movements. Lower extremity strength is symmetric [id number] and [id number] is normal gait is unremarkable Impression right pontine infarction no large vessel occlusion continue smoking cessation statin with goal LDL of 70 or less gradual and good control of blood pressure dual antiplatelet therapy for 21 days and then aspirin monotherapy. I reviewed at length with patient that MRI of the brain shows chronic prior evidence of vascular damage. That echo shows the the sequela I of hypertension that being left ventricular hypertrophy. It is important to control her vascular risk factors is an effort to prevent a subsequent stroke. Defer to hospitalist team whether patient needs to stay overnight due to ongoing severe hypertension. I would recommend continued admission night monitor as an outpatient. 2 mm ACOM aneurysm. Recommend vascular neurosurgical consultation as an outpatient. This is unrelated. Rocio Pettit Tamera is a 56 year old female with PMH - HTN, tobacco use, migraine, hypothyroidism, major depressive disorder, severe obesity with BMI of 39, diverticulitis who presents to [facility] 10/20/2021 with acute worsening headache and left-sided weakness. She noticed increased weakness with walking, and difficulty moving her left arm, terrible headache but not a migraine, and dizziness. She went to bed and stayed there until approximately 4 PM. She was then able to get up and walk to her couch to watch football, but still had similar symptoms. In the morning she awoke with same symptoms again and her brought her to the ER because nothing had improved. She smokes 1/2 to 1 pack/day of cigarettes since age 18. She drinks socially no other drugs. She does not take any medication routinely other than lisinopril and gabapentin occasionally, because she does not like to take medication.Works from home and feels extremely stressed recently. She was admitted 04/26/2021 for CP and cardiology recommended medications for blood pressure control but she is not taking them. A TTE was done at that time. She wants to go home. Advised plan and reviewed stroke modifiers to work on she and her voice understanding. Her left hand is better than previous she is able to use it now. denies CP, SOB, abdominal pain, vision changes, swallowing issues. Review of Systems Review of Systems: All systems reviewed & are unremarkable except as noted in HPI & below Physical Exam Physical Exam: Physical Exam: Constitutional: appearance over nourished, healthy and normal Ears, Nose, Mouth and Throat: mucous membranes moist, no injection and skin normal, eyes normal Cardiovascular: normal S-1 and S-2 and regular rate and rhythm Respiratory: clear to auscultation (CTA) and mild inspiratory wheezing Musculoskeletal: no peripheral edema Skin: no stigmata of neurocutaneous disease noted and normal and intact Eyes: extraocular muscles intact (EOMI) and pupils equal, round and reactive to light (PERRL) NEUROLOGIC EXAMINATION: Mental status: Alert and interactive Oriented to full date and location Oriented to person Speech fluent with no evidence of aphasia Cranial Nerves smile eye brow raise symmetric Reflexes: Deep tendon reflexes were symmetrical and graded 2/5. down going toes Sensory: intact to light and cool touch Coordination: finger to nose, romberg absent Gait/Stance: Posture normal. Gait normal: with steady with steps, base, turning, and tandem gait. difficulty walking heel to toe Motor: Negative for pronator drift of out stretched arms with eyes closed. 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) Vital Signs (Past 12 Hours) Vital Signs Temp Pulse Resp BP Pulse Ox 10/22/21 11:42 37.3 C 79 17 186/116 H 95 10/22/21 08:05 37.1 C 80 17 177/110 H 95 10/22/21 04:09 37.0 C 79 17 148/85 H 97 Diagnostic Findings TTE -65-70% EF dystolic dysfunction (1) Headache Headache chronicity pattern: acute headache Headache type: unspecified Intractability: intractable Qualified Code(s): R51.9 - Headache, unspecified
[2021-10-22] MEDS: carvediloL 3.125 MG TAB PO SCH (19:48)
[2021-10-22] MEDS ORDERED: hydrALAZINE HCL 20 MG/ML VIAL IV STA (23:34)
[2021-10-23 06:19] LABS: Basophils # (auto) 0.04 K/uL (0-0.2); Basophils % (auto) 0.6 %; Eosinophils # (auto) 0.32 K/uL (0-0.5); Eosinophils % (auto) 5.2 %; Hematocrit (blood only) 42.9 % (37-47); Hemoglobin 14.5 g/dL (12.0-16.0); Immature Granulocytes # (auto) 0.01 K/uL (0.00-0.02); Immature Granulocytes % (auto) 0.2 %; Lymphocytes # (auto) 2.34 K/uL (1.2-3.4); Lymphocytes % (auto) 37.7 %; Mean Corpuscular Hemoglobin 31.1 pg (25-34); Mean Corpuscular Hgb Conc 33.8 g/dL (32-36); Mean Corpuscular Volume 92.1 fL (80-100); Monocytes # (auto) 0.32 K/uL (0.11-0.59); Monocytes % (auto) 5.2 %; Neutrophils # (auto) 3.18 K/uL (1.4-6.5); Neutrophils % (auto) 51.1 %; Platelet Count 242 K/uL (130-400); RDW Coefficient of Variation 13.3 % (11.5-14.5); RDW Standard Deviation 44.6 fL (36.4-46.3); Red Blood Count 4.66 M/uL (4.2-5.4); White Blood Count 6.21 K/uL (4.8-10.8)
[2021-10-23 07:00] LABS: BUN Creatinine Ratio 17.9 (10-20); Calcium 9.5 mg/dl (8.5-10.1); Creatinine Clr Calc Pharmacy 79.5 ml/min; Est GFR (Non-African American) 77.7 ml/min; Potassium 3.8 mmol/L (3.5-5.1)
[2021-10-23] MEDS: carvediloL 3.125 MG TAB PO SCH (08:34)
[2021-10-23] MEDS: GABAPENTIN 300 MG CAP PO SCH ×2 (08:34→13:00)
[2021-10-23] MEDS: ATORVASTATIN 40 MG TAB PO SCH (08:35)
[2021-10-23] MEDS: lisinopril 40 MG TAB PO SCH (08:35)
[2021-10-23] MEDS: ASPIRIN 81 MG ECTAB PO SCH (08:35)
[2021-10-23] MEDS: CLOPIDOGREL BISULFATE 75 MG TAB PO SCH (08:35)
[2021-10-23] MEDS: NICOTINE 21 MG/24 HR TDSY TD SCH (08:37)
[2021-10-23] MEDS ORDERED: hydroCHLOROthiazide 25 MG TAB PO SCH (09:00)
[2021-10-23] MEDS ORDERED: STROKE PATIENT DISCHARGE STA (09:51)
[2021-10-23] MEDS ORDERED: SUMAtriptan succinate 25 MG TAB PO PRN (09:52)
--- NOTE | 2021-10-23 09:52 | Discharge Summary ---
Date of Service October 23, 2021 Admission HPI Per Admitting Provider This is a 56-year-old female with PMHx of HTN, tobacco use, migraine, hypothyroidism, major depressive disorder, severe obesity with BMI of 39, history of acute diverticulitis who presents to the ER with acute worsening headache and left-sided weakness. Symptoms began yesterday around 11 in the morning. She reports that she noticed increased weakness with walking, and difficulty moving her left arm, terrible he adache but not a migraine, and dizziness. She went to bed and stayed there until approximately 4 PM. At that point time she was able to get up and walk to her couch to watch football, but still had similar symptoms. She proceeded to watch football last evening and went to bed. This morning she awoke with same symptoms again and her brought her to the ER later this afternoon because nothing had improved. She smokes 1/2 to 1 pack/day of cigarettes since age 18. She drinks socially. Denies any other illicit drug use. Patient does not take any medication routinely other than lisinopril and gabapentin occasionally, because she does not like to take medication. Patient denies routinely exercising or dieting. Works from home and feels extremely stressed recently. Her is present with her at bedside. Admission Exam Per Admitting Provider General: awake, alert, no apparent distress, + Obese BMI 39.4 Head: Normocephalic, atraumatic ENT: PERRL, EOMI, no pharyngeal exudate, mucous membranes moist Chest: Clear to auscultation, on room air, no adventitious breath sounds Cardiac: Regular rate and rhythm, no murmur, no JVD, normal peripheral pulses, good capillary refill Abdominal: NABS x 4 quadrants, soft, nondistended, nontender to palpation, no rebound or guarding Extremities: Normal inspection, no peripheral edema or erythema, calfs nontender to palpation Psych: Normal mood and affect Neuro: AAO x 3, + motor deficit in LUE 4/5 and LLE 3/5 compared to RUE and RLE rated 5/5, weakness in LUE made it difficult to perform pronator drift, some drifting with arm but unable to say if truly positive, slow cerebellar testing with turning hands back and forth on lap, unable to do heel to ortega testing with left heel down the right ortega, can perform with the opposite. Finger to nose testing intact. No nystagmus. Speech is clear, no peripheral sensory deficits Principal Diagnosis Stroke (Acute right pontine infarct) Hypertensive emergency Discharge Exam Constitutional + well hydrated and + obese; no acute distress Eyes PERRL, conjunctivae normal, anicteric sclerae ENMT external ear and nose normal, oropharynx normal Respiratory normal respiratory effort, lungs clear to auscultation Cardiovascular Rate/Rhythm: regular rate and regular rhythm S1 S2 Gastrointestinal (Abdomen) normal bowel sounds, soft, nontender, no hepatosplenomegaly Musculoskeletal no cyanosis or clubbing, extremities motor strength 5/5 Neurologic PERRL, EOMI, accommodation nl, no face palsy, no dysarthria Psychiatric A+Ox3, euthymic affect Discharge Data Allergies Allergy/AdvReac Type Severity Reaction Status Date / Time Cephalosporins Allergy Severe Anaphylaxis Verified 10/20/21 16:16 erythromycin base Allergy Severe Anaphylaxis Verified 10/20/21 16:16 Penicillins Allergy Severe Anaphylaxis Verified 10/20/21 16:16 Sulfa (Sulfonamide Allergy Severe Anaphylaxis Verified 10/20/21 16:16 Antibiotics) Tetracyclines Allergy Severe Anaphylaxis Verified 10/20/21 16:16 Consultations 10/20/21 18:42 ED Decision to Admit Stat 10/20/21 21:30 Consult Neurology Routine Ordered Studies 10/20/21 14:46 CT angio head w con Stat CT angio neck with con Stat CT head/brain wo con Stat No acute intracranial hemorrhage, midline shift or mass effect is present. Ventricular system is unremarkable. Basal cisterns are patent. White matter hypodensities favor small vessel disease. There is mild ethmoid sinus mucosal thickening. There is slight asymmetric decreased caliber of the intracranial portion of the right internal carotid artery. There is mild plaque within the bilateral cavernous carotids. There is no significant stenosis. Right A1 segment is diminutive on a congenital basis. There is a probable tiny 2 mm aneurysm arising from the anterior communicating artery. The left vertebral artery is diminutive and ends in PICA. persistence of the right posterior cerebral artery is noted. No central vessel occlusion is identified. Intracranial vascular irregularity is likely due to atherosclerosis. IMPRESSION: 1. No central vessel occlusion. 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 2. Mild atherosclerotic plaque within the intracranial vessels. No significant stenoses. 10/20/21 16:02 US venous doppler LE LT Stat 10/20/21 17:32 MR brain wo/w con Stat There is an acute infarct in the right superior roseline. Foci of T2 and FLAIR hyperintensity are noted in the paraventricular areas consistent with chronic small vessel ischemic disease. Ex vacuo ventriculomegaly and sulcal enlargement is noted compatible with diffuse encephalomalacia. There is no evidence of acute intraparenchymal hemorrhage. No extra axial fluid collections are seen. There are no masses, mass effect, or midline shift. No abnormal enhancement is seen. The corpus callosum, pituitary gland, and cerebellar tonsils appear grossly unremarkable. Flow voids of the major intracranial arterial vessels are identified. There is mucosal thickening of a few ethmoid air cells. IMPRESSION: Acute infarct in the right superior roseline. Hospital Course (1) CVA (cerebral vascular accident): (2) Hypertensive emergency: Left extremities weak since 11 AM one day ACCOUNTING ASSISTANT a/w headache CT head reviewed and is negative, CTA neck and head completed showing 2 mm aneurysm arising from the anterior communicating artery. MRI brain wo contrast --> Acute infarct in the right superior roseline. Pt made aware. Was evaluated by Neurology Patient acknowledges poor medication adherence. She can only remember gabapentin and lisinopril. However, based on PCP records from 04/2021 and previous hospital records patient was also on HCTZ and carvedilol with better BP control at the time Patient counselled extensively on need for medication adherence Based on my conversation with patient today, I do not know if patient is well motivated to be adherent. She says the lisinopril does not control her BP. She also could not explain how she is only lisinopril while previous records show she was on other antihypertensives. I explained that she needs more than one antihypertensive and due to her not consistently taking BP meds considering her BP was in 230s/120s on admission Lisinopril 40mg, HCTZ 25mg and carvedilol 3.25mg bid resumed yesterday. BP trending down slowly. Now in 160s/100s Patient counselled on need for adherence, keeping a BP log and follow up with PCP who will continue to adjust meds as needed Continue statin started during this hospital stay Need DAPT to complete 21 days therapy , then ASA 81mg only afterwards Counselled patient extensively on smoking cessation. She is not interested in quitting at this time Patient to follow up with neurology outpatient Patient can follow up with neurovasc for further eval of cerebral aneurysm (3) Headache: (4) Hypertension: (5) Hypothyroidism: -Outpatient records indicate she is on levothyroxine - states she is not taking this (6) Tobacco use: Cessation encouraged, nicotine patch ordered Pt does not want to quit currently (7) Depression: Not on medication per her report Total Time Total Time Spent Total Time Spent (In Minutes): 50 Total Time Includes: Examination of the Patient, Discharge Planning and Medication Reconciliation Discharge Plan Discharge Items Patient Disposition: Home - Self-Care Reason For Visit: L SIDED WEAKNESS Discharge Diagnosis: Stroke (Acute right pontine infarct) Hypertensive emergency Activity: Resume your previous activity Non-emergency contact: Primary Care Provider and Neurologist Call non-emergency contact if: you have any medication questions and your symptoms worsen Follow-up/Referrals: Rocio Davis PA-C [Physician Heating Element Builder] - (Date & Time 11/14/2021 11:20 AM Provider Rocio Davis PA-C Department Neurology [facility] ) Joe Alba MD [Primary Care Provider] - (Date & Time 10/31/2021 2:20 PM Provider Joe Alba MD Department Family Medicine [facility] ) Diet: Heart Healthy and Low Sodium (2gm) Addtl Attending Provider Instructions: Mrs Ram You came to the hospital complaining of left sided weakness. You were evaluated and treated for hypertensive emergency with a stroke. You were started on a couple of new medications: -Please take aspirin and plavix for the next 18 days after which you continue taking aspirin 81mg for the rest of your life -Start taking atorvastatin -Start taking lisinopril -Hydrochlorothiazide (20-12.5mg combination) 2 tabs daily -Start taking carvedilol 3.25mg twice daily. It is extremely important that you take medications as prescribed to keep your blood pressure better controlled as you are at increased risk of repeat strokes Please ensure follow up with Neurology outpatient as well as your Primary doctor. You have a small brain aneurysm and should follow up with Neurovascular doctor outpatient. It is important to quit smoking as we discussed. It was a pleasure taking care of you. Pending Studies at Discharge: No Stand-Alone Forms: Medications to Prevent Stroke, My AirClic, Work/School Release, Smoking Cessation Medications and DC Order Prescriptions: New clopidogrel 75 mg Tablet 75 mg PO QAM Qty: 18 RF: 0 lisinopril-hydrochlorothiazide 20-12.5 mg tablet 2 tab PO DAILY Qty: 60 RF: 0 atorvastatin 40 mg Tablet 40 mg PO QAM Qty: 30 RF: 0 aspirin 81 mg Tablet,Delayed Release (Dr/Ec) 81 mg PO QAM Qty: 30 RF: 0 carvedilol 3.125 mg Tablet 3.125 mg PO BID Qty: 60 RF: 0 Continued gabapentin 100 mg Capsule 300 mg PO TID RF: 0 Discontinued lisinopril 40 mg Tablet 40 mg PO DAILY RF: 0 Discharge Orders: Discharge Order (Routine); Ordered 10/23/21 Ordered By: Neela Diamond Admission Data Admit Date/Time: 10/20/21 22:06 Attending Provider: Neela Diamond I. Admit Provider: Devora Cortez Primary Care Provider: Joe Alba Other Providers: Devora Cortez ; Rocio Espinoza Other Interventions: Discharge Summary Assessment (RN) Last Done: 10/23/21 12:47
--- NOTE | 2021-10-23 10:45 | Pharmacy Report ---
Pharmacist Stroke Counseling - Date of Service October 23, 2021 - Scope: Pharmacy has been consulted to provide medication discharge counseling for this patient admitted with ischemic stroke as per the Pharmacist Discharge Counseling for Stroke Patients Protocol. - Medications on Discharge: Home Medications Medication Instructions Recorded Confirmed gabapentin 100 mg capsule 300 mg PO TID 08/31/18 10/20/21 New Rx's Medication Instructions Recorded aspirin 81 mg tablet,delayed 81 mg PO QAM #30 tab 10/23/21 release atorvastatin 40 mg tablet 40 mg PO QAM #30 tab 10/23/21 carvedilol 3.125 mg tablet 3.125 mg PO BID #60 tab 10/23/21 clopidogrel 75 mg tablet 75 mg PO QAM #18 tab 10/23/21 lisinopril 20 2 tab PO DAILY #60 tab 10/23/21 mg-hydrochlorothiazide 12.5 mg tablet - Action: The above medications, specifically ones for stroke treatment/prophylaxis, have been reviewed in detail with the patient prior to discharge. This includes indication, common adverse reactions, drug interactions, and medication administration. Medication counseling has been employed using the teach-back method to ensure understanding. - Outcome: The patient demonstrated understanding of the medications. Additional comments: Counseled patient in her room today. She was receptive to counseling. Reviewed new medications to prevent stroke including Aspirin, Plavix, Atorvastatin and blood pressure meds - Lisinopril+HCTZ and Carvedilol. Discussed why they are being used and common side effects in great detail. Explained to patient that the combination blood thinners Aspirin + Plavix are for 21 days total and then Aspirin daily for life. Plavix would be for only 18 more days since she started this here in the hospital. She expressed understanding this. Patient asked if the Aspirin was only a baby Aspirin 81 mg and I confirmed that it was and she could get it OTC. Reviewed how to use the medications, what to do if doses are missed, common drug interactions, common side effects, what to watch out for while using the medications. Pt verbalized understanding and restated the lee points of each medication. Thank you for allowing pharmacy to be involved in the care of this patient. Please call [phone] with any additional questions
== END 2021-10-23 16:30 | disposition home or self-care (01) | DRG 65 ==
LOC: 2S 14:01 → ED 14:01 → 2S 21:37 → SUATTDRO 22:06